=== PATIENT | male | born 1965 | race Caucasian/White ===

== ENCOUNTER 2020-03-10 10:08 | Emergency (ER) | payer SELFPAY ==
--- NOTE | ~2020-03-10 | XR_ITS ---
XR elbow RT min 3V 03/10/2020 10:58 INDICATION: Right elbow pain. Abrasion over fall. PROCEDURE: 4 views right elbow COMPARISON: No prior studies for comparison. FINDINGS: Fracture, dislocation or subluxation is not identified. The soft tissues appear within norm al limits. There are small radiodensities in the soft tissues posterior to the elbow, likely punctate foreign bodies. IMPRESSION: 1: NO ACUTE BONE OR JOINT ABNORMALITY IDENTIFIED. 2: Multiple punctate foreign bodies in the soft tissues posterior to the elbow. Reviewed, dictated and finalized at location A.
--- NOTE | ~2020-03-10 | CT_ITS ---
EXAMINATION: CT cervical spine wo con, CT brain wo con EXAM DATE: 03/10/2020 11:18 INDICATION: Seizures. Fall. Head injury. TECHNIQUE: Spiral CT of the head was performed without contrast. Axial, coronal and sagittal images were reviewed. Spiral CT of the cervical spine was performed without contrast. Axial images were rev iewed. Coronal and sagittal reformatted images were also reviewed. The dose-length product (DLP) fo r this examination was 681.00 mGy-cm. The exposure was tailored according to patient size, and itera tive reconstruction (ASIR) was used as additional dose reduction technique. There is no prior study for comparison. FINDINGS: HEAD CT: There is no acute intraparenchymal hemorrhage. No evidence of intraparenchymal brain mass l esion. No evidence of acute infarction. There is periventricular and subcortical hypodensity, nonspe cific but probably related to small vessel ischemic disease. There is mild prominence of the sulci and ventricles related to cerebral atrophy. Mild There is no mass effect or midline shift. There is no obstructive hydrocephalus suspected. There are no extra-axial collections. There are no acute calvarial fractures. The orbits are unremarkable. Small to moderate-sized right parietal scalp con tusion/hematoma. The visualized sinuses and mastoid air cells are well aerated. CERVICAL CT: There is no evidence of acute cervical fracture. The odontoid process is intact. Pre- dens space is normal. Prevertebral soft tissue is normal. There are no soft tissue abnormalities id entified. There is no disc space widening or traumatic vertebral body subluxation suspected. Partia l osseous fusion C6-7 vertebral bodies. A detailed level by level evaluation of spondylosis can be a dded as addendum if requested. IMPRESSION: 1. No acute intracranial findings or cervical fracture. 2. Small to moderate-sized right parietal scalp contusion/hematoma. 3. Chronic age related findings. Reviewed, dictated and finalized at location B. IMPRESSION: 1. No acute intracranial findings or cervical fracture. 2. Small to moderate-sized right parietal scalp contusion/hematoma. 3. Chronic age related findings.
--- NOTE | 2020-03-10 09:58 | ED_ITS ---
HPI - Alcohol General Stated Complaint: Seizure
--- NOTE | 2020-03-10 09:58 | ED.ALCOHOL ---
HPI - Alcohol General Stated Complaint: Seizure
[2020-03-10 10:20] VITALS: BP 113/73; PULSE 94; RESP 14; TEMP 36.8; O2SAT 100
--- NOTE | 2020-03-10 10:22 | ECG_ITS ---
Measurements Intervals [place] Rate: 84 P: -24 TN: 142 QRS: -55 QRSD: 107 T: -3 QT: 386 QTc: 457 Interpretive Statements SINUS RHYTHM INCOMPLETE RIGHT BUNDLE BRANCH BLOCK LEFT ANTERIOR FASCICULAR BLOCK BORDERLINE T WAVE ABNORMALITY- INFERIOR LEADS ABNORMAL ECG Electronically Signed On 03-10-2020 12:18:41 CDT by Nathaniel Chowdhury D.O.
--- NOTE | 2020-03-10 10:24 | ED.GENADULT ---
HPI - General Adult General Chief complaint: Seizure <Osmel Jackson PA-C - Last Filed: 03/10/20 15:29> Stated complaint: Seizure <Osmel Jackson PA-C - Last Filed: 03/10/20 15:29> Source: patient and EMS <ASHLEY Lou Last Filed: 03/10/20 15:29> Mode of arrival: EMS <Osmel Jackson PA-C - Last Filed: 03/10/20 15:29> Limitations: no limitations <Osmel Jackson PA-C - Last Filed: 03/10/20 15:29> History of Present Illness HPI narrative: Patient is a 54-year-old male who presents for EMS after sustaining injuries with described seizure-like activity patient is an alcoholic consumes vodka daily patient notes that he did not drink today last drink yesterday patient notes he has had 1 other seizure which may have been related to alcohol abuse patient lives at home by himself takes medicine for hypertension but does not currently have a primary care doctor patient on arrival to emergency department is in the room in no distress patient has injury to the right elbow denies other complaints or pain at this time and is alert and oriented x3. Patient was initially postictal on scene per EMS and had improvement at baseline during transportation <Osmel Jackson PA-C - Last Filed: 03/10/20 15:29> Related Data Allergies/adverse reactions: Allergies Allergy/AdvReac Type Severity Reaction Status Date / Time No Known Allergies Allergy Verified 03/10/20 14:44 <Osmel Jackson PA-C - Last Filed: 03/10/20 15:29> Review of Systems Review of Systems: All systems reviewed & are unremarkable except as noted in HPI and below <Osmel Jackson PA-C - Last Filed: 03/10/20 15:29> [facility] Past Medical History Medical History: Medical History (Updated 03/10/20 @ 15:27 by Osmel Jackson PA-C) Alcohol abuse Hypertension Seizure disorder <Osmel Jackson PA-C - Last Filed: 03/10/20 15:29> Social History Social History: Social History (Updated 03/10/20 @ 10:28 by Osmel Jackson PA-C) Smoking status: Current every day smoker Alcohol intake: current Substance use: never Living arrangements: alone Gender identity (if verbalized by the patient): Male <Oseml Jackson PA-C - Last Filed: 03/10/20 15:29> Exam Narrative: Exam Narrative: GENERAL: Well-appearing, well-nourished, and in no acute distress. HEAD: Normocephalic, atraumatic. EYES: PERRLA and EOMI. ENT: Nares clear, no rhinorrhea or epistaxis. Mucous membranes moist. Oropharynx without tonsillar hypertrophy exudate or other lesions. NECK: Supple. No adenopathy or masses. CHEST: Clear to auscultation. No respiratory distress. No wheezes rales or rhonchi HEART: Regular rate and rhythm. No murmur heard. Normal peripheral pulses. ABDOMEN: Soft, nontender, nondistended EXTREMITIES: Normal range of motion. No edema. Abrasion to the posterior right elbow. No cervical thoracic or lumbar tenderness SKIN: Warm, dry, no rash. NEURO: No focal deficits. Alert and oriented x3. Cranial nerves II through XII grossly intact PSYCH: Normal mood and affect. <Osmel Jackson PA-C - Last Filed: 03/10/20 15:29> Course Course Emergency Course: Patient in the room in no distress resting comfortably has remained at baseline mentation no high risk changes in the blood work or imaging patient aware of discussions and recommendations of neurology agreeing to follow-up with provided neurology and primary care referrals patient is afebrile nontoxic-appearing no distress. Patient agreeing to follow-up as instructed and is felt appropriate for outpatient reevaluation patient given strict instructions on not driving riding horses or any dangerous activities until he has been released by neurology <Osmel Jackson PA-C - Last Filed: 03/10/20 15:29> Consultations Consultation #1: Spoke with neurology who recommends the patient can follow in clinic [facility] so recommends loading the patient with Joanna corado
[2020-03-10] MEDS: LORazepam INJ (*CRX) 2 MG/ML VIAL 1 MG IV PUSH (11:30)
[2020-03-10 12:16] VITALS: BP 178/78; PULSE 79; RESP 18; O2SAT 100
[2020-03-10 12:54] LABS: Add Urine Microscopic? YES; Appearance Urine Clear (Clear); Bilirubin Urine Negative (Negative); Blood Urine 2+ (Negative); Color Urine Yellow (Yellow); Glucose Urine UA 3+ mg/dL (Negative); Hyaline Casts Urine 15-19 /lpf; Ketones Urine Trace mg/dL (Negative); Leukocyte Esterase Ur Negative LEU/UL (Negative); Mucus Urine Rare /lpf; Nitrate Urine Negative (Negative); Protein Urine 2+ mg/dL (Negative); Specific Grav Ur 1.022 (1.001-1.035); Squamous Epithelial Cell Urine Rare /hpf (Few); Urobilinogen Urine Negative mg/dL (<2.0); WBC Urine 0-3 /hpf
[2020-03-10 12:57] LABS: Barbiturate Screen Urine Negative (Negative); Benzodiazepines Screen Urine Negative (Negative)
[2020-03-10 12:58] LABS: Amphetamine Screen Urine Negative (Negative); Cannabinoid Screen Urine Negative (Negative); Cocaine Screen Urine Negative (Negative); Methadone Screen Urine Negative (Negative); Opiate Screen Urine Negative (Negative); Phencyclidine Screen Urine Negative (Negative)
[2020-03-10 12:59] LABS: Basophils Percent Auto 0.3 % (0.2-1.2); Eosinophils Percent Auto 0.4 % (0-4.4); Hematocrit 37.5 % (42.0-52.0); Hemoglobin 13.1 g/dL (14.0-18.0); Immature Granulocyte Absolute 0.06 K/mm3 (0.00-0.031); Immature Granulocyte Percent A 0.6 % (0-0.5); Lymphocytes Absolute Auto 0.49 K/mm3 (0.9-3.2); Lymphocytes Percent Auto 4.5 % (18.3-44.2); Mean Corpuscular HGB Conc 34.9 g/dl (32-36); Mean Corpuscular Hemoglobin 34.7 pg (26-34); Mean Corpuscular Volume 99.5 fl (80-100); Mean Platelet Volume 9.2 fl (7.4-10.4); Monocytes Absolute Auto 0.7 K/mm3 (0.1-0.6); Monocytes Percent Auto 6.8 % (2.6-8.5); Neutrophils Absolute Auto 9.5 K/mm3 (1.3-6.7); Neutrophils Percent Auto 87.4 % (45.5-73.1); Platelet Count Result 224 k/mm3 (150-375); Red Blood Count 3.77 M/mm3 (4.6-6.20); Red Cell Distribution Width 14.6 % (11.5-14.5); White Blood Count 10.9 K/mm3 (4.5-10.0)
[2020-03-10 13:11] LABS: Alanine Aminotransferase 35 U/L (4-50); Albumin Level 4.3 g/dL (3.5-5.1); Alkaline Phosphatase 72 U/L (38-126); Anion Gap 7 mmol/L (8-16); Aspartate Amino Transferase 65 U/L (17-59); Bilirubin,Total 1.4 mg/dL (0.2-1.3); Blood Urea Nitrogen 15 mg/dL (9-20); Calcium 8.8 mg/dL (8.4-10.2); Carbon Dioxide 26 mmol/L (22-30); Chloride 97 mmol/L (98-107); Estimated CRCL calculation 130 ml/min; Estimated Glomerular Filt Rate > 60; Glucose 115 mg/dL (75-110); Sodium 130 mmol/L (137-145)
[2020-03-10 13:20] LABS: Troponin I 0.023 ng/mL (0.000-0.034)
[2020-03-10 14:04] LABS: Ethanol < 10 mg/dL (<10)
[2020-03-10] MEDS: levETIRAcetam 1000MG/NACL100ML 1,000 MG/100 ML BAG 400 MG IVPB (14:44)
[2020-03-10 14:50] VITALS: BP 164/92; PULSE 87; RESP 15; O2SAT 100
== END 2020-03-10 15:44 | disposition home or self-care (01) ==
PROVIDERS: Emergency Medicine Emergency Medical Services; Emergency Provider Emergency Medicine
DX: F10.10 Alcohol abuse, uncomplicated (principal); Y90.0 Blood alcohol level of less than 20 mg/100 ml; G40.909 Epilepsy, unspecified, not intractable, without status epilepticus; I10 Essential (primary) hypertension; F17.210 Nicotine dependence, cigarettes, uncomplicated
CPT/HCPCS: 36415; 70450; 72125; 73080; 80053; 80307; 81001; 84443; 84484; 85025; 93005; 96365; 96375; 99284; J1953; J2060; J3411; J3475; J7120

== ENCOUNTER 2024-05-16 12:02 | Observation (INO) | payer MEDICAID, SELFPAY ==
[2024-05-16] VITALS (14 sets, daily range): BP systolic 125–172; BP diastolic 76–105; PULSE 59–97; RESP 12–19; TEMP 36.4–37.3; O2SAT 98–100; BMI 27.1
--- NOTE | ~2024-05-16 | CT_ITS ---
EXAMINATION: CT abdomen pelvis w con DATE: 05/16/2024 13:05 INDICATION: Epigastric pain, nausea, vomiting, diarrhea, bright red blood in stool; alcoholic. TECHNIQUE: Computed tomography (CT) of the abdomen and pelvis was performed with 100 CC Omnipaque 350 intravenous contrast. Automated exposure control and iterative reconstruction technique were employe d. Exam dose: 466.18 mGy-cm total exam DLP. COMPARISON: None. FINDINGS: The lung bases are clear of infiltrate or consolidation. Heart size is within normal range. No pericardial or pleural effusion. There is hepatic steatosis. No hepatic space-occupying mass lesion is evident. The gallbladder is unremarkable; no gallbladder wall thickening or pericholecystic fluid or fat stran ding. No bile duct dilatation. There is extensive calcification throughout nearly the entire pancreas relatively sparing only the ta il. There is irregular prominent lucency of the pancreatic tail measuring up to at least 1.9 x 2.9 cm ove rall dimension. Given the diagnosis of chronic pancreatitis with extensive pancreatic calcifications, pancreatic pseudocyst would be a primary consideration for this cystic lesion.. Less likely consider ations in the differential diagnosis includes serous cystic neoplasm intraductal papillary mucinous n eoplasm, serous cystic neoplasm, cystic neuroendocrine tumor, lymphoepithelial cyst. Approximately 9.7 x 13 mm right renal pelvic calculus with attenuation of 921 Hounsfield units. There is mild right hydronephrosis. 2.4 mm nonobstructing lower pole left renal calculus. No other urinary tract calculus. No left hydroureteronephrosis. Impression 14 x 18 mm posterior left mid renal cyst. There is extensive abdominal aortic calcification as well as iliac and femoral arterial calcification s. No abdominal aortic aneurysm. No intraperitoneal or retroperitoneal or pelvic mass lesion or adenopathy or ascites. Moderate prostate enlargement which may in addition to limited urinary bladder distention for diffuse thickening of the urinary bladder wall. No focal urinary bladder wall thickening is identified. No bowel obstruction, bowel wall thickening, pneumatosis or intraperitoneal free air is detected. Very small fat-containing left inguinal hernia. Very small fat-containing umbilical hernia. No suspicious osteolytic or osteoblastic lesions. IMPRESSION: Hepatic steatosis Chronic pancreatitis 1.9 x 2.9 cm pancreatic tail cystic lesion; differential diagnosis is given above, including benign a nd malignant causes. Pancreatic pseudocyst would be at the top of the differential diagnosis consider ing the extensive pancreatic calcifications/chronic pancreatitis 9.7 x 13 mm right renal pelvic calculus and 2.4 mm nonobstructing lower pole left renal calculus 14 x 18 mm left mid renal cyst Moderate prostatomegaly, diffuse bladder wall thickening Reviewed, dictated and finalized at [facility] Reviewed, dictated and finalized at [facility]R[facility] Impression 14 x 18 mm posterior left mid renal cyst. There is extensive abdominal aortic calcification as well as iliac and femoral arterial calcifications. No abdominal aortic aneurysm. No intraperitoneal or retroperitoneal or pelvic mass lesion or adenopathy or as cites. Moderate prostate enlargement which may in addition to limited urinary bladder distention for diffuse thickening of the urinary bladder wall. No focal urinary bladder wall thickening is identified. No bowel obstruction, bowel wall thickening, pneumatosis or intraperitoneal noy e air is detected. Very small fat-containing left inguinal hernia. Very small fat-containing umbilical hernia. No suspicious osteolytic or osteoblastic lesions. IMPRESSION: Hepatic steatosis Chronic pancreatitis 1.9 x 2.9 cm pancreatic tail cystic lesion; differential diagnosis is given abo ve, including benign and malignant causes. Pancreatic pseudocyst would be at th e top of the differential diagnosis considering the extensive pancreatic calcif ications/chronic pancreatitis 9.7 x 13 mm right renal pelvic calculus and 2.4 mm nonobstructing lower pole le ft renal calculus 14 x 18 mm left mid renal cyst Moderate prostatomegaly, diffuse bladder wall thickening
--- NOTE | 2024-05-16 12:26 | ED.GIBLEED ---
HPI - GI Bleed General Chief complaint: GI Bleed Stated complaint: Blood in stool, Pancreas Hurt Time Seen by Provider: 05/16/24 12:26 Source: patient Mode of arrival: ambulatory Limitations: no limitations History of Present Illness HPI Narrative: 58 years old white male, homeless, came to the ED complaining of nausea vomiting and diarrhea for the last 24 hours. Patient believed that he vomited at least 10 times and diarrhea at least 10 times over the last 24 hours associated with chills and mid upper abdominal pain. Last meal was yesterday noon. History of chronic pancreatitis, hypertension, tobacco dependent, patient report drinking 1 pt of vodka daily, last drink was over 24 hours ago. Patient uses marijuana occasionally. History of seizure secondary to alcohol withdrawal. Related Data Allergies Allergy/AdvReac Type Severity Reaction Status Date / Time No Known Allergies Allergy Verified 05/16/24 12:03 Review of Systems Review of Systems: All systems reviewed & are unremarkable except as noted in HPI and below PMFSH Past Medical History Medical History (Updated 05/16/24 @ 15:36 by Marion Cantu MD) Alcohol abuse Alcohol withdrawal seizure Bilateral nephrolithiasis Chronic pancreatitis Hepatic steatosis Hypertension Pancreatic lesion CT scan on 05/16/2024 showed a 1.9 x 2.9 cm pancreatic tail cystic lesion Seizure disorder Tobacco dependence Social History Social History (Updated 05/16/24 @ 15:09 by Sarah Juarez PA-C) Social History: Surrogate medical decision maker: Code status: Full code. Smoking status: Current every day smoker Alcohol intake: current Alcohol use details: one pint of vodka a day Substance use: never Exam Narrative: General appearance: Well-developed, well-nourished Skin: Normal color Head: Normocephalic, nontraumatic Eyes: Clear conjunctiva ENT: Oropharynx normal, ears normal, nose normal Neck: Supple, nontender Chest and respiratory: Airway patent, no respiratory distress, no accessory muscle use Heart: Regular rate/rhythm Abdomen: Epigastric tenderness, quite bowel sounds, rectal exam showed no mass, no tenderness, guaiac negative Vascular: Normal peripheral pulses, normal capillary refill. 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 Flowers Date: 05/16/24 Time: 15:35 Vital Signs Vital signs: Vital Signs Temperature 36.4 C 05/16/24 12:11 Pulse Rate 97 05/16/24 12:11 Respiratory Rate 16 05/16/24 12:11 Blood Pressure 143/97 H 05/16/24 12:11 Pulse Oximetry 100 05/16/24 12:11 Oxygen Delivery Room Air 05/16/24 12:11 Temperature 36.4 C 05/16/24 13:08 Pulse Rate 59 L 05/16/24 13:08 Respiratory Rate 18 05/16/24 13:08 Blood Pressure 160/99 H 05/16/24 13:08 Pulse Oximetry 100 05/16/24 13:08 Oxygen Delivery Room Air 05/16/24 12:11 MDM - GI Bleed MDM Narrative Medical decision making narrative: Patient presents with nausea vomiting and diarrhea and epigastric pain Patient is homeless. Vital signs are stable Physical examination showing diffuse tenderness at the epigastric area Differential diagnosis include viral gastroenteritis, pancreatitis, gastritis, esophagitis, electrolyte imbalance, dehydration. Blood workup today includes CBC, CMP, lipase showed potassium 2.8, lactic acid 4.5, calcium 8.2, normal liver enzymes, lipase 77, otherwise insignificant abnormalities. CT abdomen and pelvis with IV contrast showed pancreatic tail cystic lesion benign versus malignancy, kidney stone, Admit to hospitalist Differential Diagnosis Differential diagnosis: Likely other (As above) Medical Records Attestation: I reviewed the patient's medical records. Lab Data Attestation: I reviewed the patient's lab results. 05/16/24 12:51 05/16/24 12:51 Labs: Lab Results 05/16/24 05/16/24 Range/Units 12:50 12:51 WBC 7.4 (4.5-10.0) K/mm3 RBC 4.77 (4.6-6.20) M/mm3 Hgb 14.9 (14.0-18.0) g/dL Hct 42.9 (42.0-52.0) % MCV 89.9 (80-100) fl MCH 31.2 (26-34) pg MCHC 34.7 (32-36) g/dl RDW 13.1 (11.5-14.5) % Plt Count 200 (150-375) k/mm3 MPV 9.7 (7.4-10.4) fl Immature Gran % (Auto) 0.1 (0-0.5) % Neut % (Auto) 74.9 H (45.5-73.1) % Lymph % (Auto) 13.6 L (18.3-44.2) % [place] % (Auto) 10.5 H (2.6-8.5) % Eos % (Auto) 0.4 (0-4.4) % Baso % (Auto) 0.5 (0.2-1.2) % Lymph # (Auto) 1.01 (0.9-3.2) K/mm3 [place] # (Auto) 0.8 H (0.1-0.6) K/mm3 Eos # (Auto) 0.0 (0-0.3) K/mm3 Baso # (Auto) 0.0 (0.0-0.1) K/mm3 Abs Immat Gran (auto) 0.01 (0.00-0.031) K/mm3 Absolute Neuts (auto) 5.5 (1.3-6.7) K/mm3 Absolute Nucleated RBC 0.000 (0.0-0.012) K/mm3 Nucleated RBC % 0.0 (0.0-0.2) % PT 13.5 (11.1-14.7) Seconds INR 1.0 APTT 28.4 (22.3-36.8) Seconds Sodium 135 L (137-145) mmol/L Potassium 2.8 L* (3.4-5.0) mmol/L Chloride 98 (98-107) mmol/L Carbon Dioxide 29 (22-30) mmol/L Anion Gap 8 (4-12) mmol/L BUN 5 L D (9-20) mg/dL Creatinine 0.70 (0.7-1.3) mg/dL Estim Creat Clear Calc 105 ml/min Estimated GFR > 60 (59 - ) Glucose 151 H (65-110) mg/dL Lactic Acid 4.5 H* (0.7-2.0) mmol/L Calcium 8.2 L (8.4-10.2) mg/dL Total Bilirubin 0.9 (0.2-1.3) mg/dL AST 60 H (17-59) U/L ALT 29 (6-50) U/L Alkaline Phosphatase 112 (38-126) U/L Total Protein 8.0 (6.3-8.2) g/dL Albumin 4.3 (3.5-5.1) g/dL Lipase 77 (23-300) U/L Ethyl Alcohol < 10 (<10) mg/dL Blood Type AB Positive Antibody Screen Positive Antibody Identification Pending Antigen Identification Pending CARLEY, IgG Interpret Neg CARLEY, Poly Interpret TNP CARLEY, Complement Interp Pending Imaging Data Radiologist's impression: Impressions Abdomen/Pelvis CT 05/16/24 13:10 Impression 14 x 18 mm posterior left mid renal cyst. There is extensive abdominal aortic calcification as well as iliac and femoral arterial calcifications. No abdominal aortic aneurysm. No intraperitoneal or retroperitoneal or pelvic mass lesion or adenopathy or ascites. Moderate prostate enlargement which may in addition to limited urinary bladder distention for diffuse thickening of the urinary bladder wall. No focal urinary bladder wall thickening is identified. No bowel obstruction, bowel wall thickening, pneumatosis or intraperitoneal free air is detected. Very small fat-containing left inguinal hernia. Very small fat-containing umbilical hernia. No suspicious osteolytic or osteoblastic lesions. IMPRESSION: Hepatic steatosis Chronic pancreatitis 1.9 x 2.9 cm pancreatic tail cystic lesion; differential diagnosis is given above, including benign and malignant causes. Pancreatic pseudocyst would be at the top of the differential diagnosis considering the extensive pancreatic calcifications/chronic pancreatitis 9.7 x 13 mm right renal pelvic calculus and 2.4 mm nonobstructing lower pole left renal calculus 14 x 18 mm left mid renal cyst Moderate prostatomegaly, diffuse bladder wall thickening Critical Care Time Critical Care Time Critical Care Time: No Discharge Plan Discharge Clinical Impression: Gastroenteritis, Acute hypokalemia, Homeless, Alcohol abuse, Pancreas cyst Patient Disposition: Still a Patient Condition: Stable Additional Instructions: Admit to hospitalist Prescriptions: No Action levetiracetam [Keppra] 500 mg tablet 500 mg PO BID 14 Days Qty: 28 0RF Follow-up/Referrals: PHYSICIAN,CLOUD ARCHITECT [Non-Staff] -
[2024-05-16 13:08] LABS: Basophils Percent Auto 0.5 % (0.2-1.2); Eosinophils Percent Auto 0.4 % (0-4.4); Hematocrit 42.9 % (42.0-52.0); Hemoglobin 14.9 g/dL (14.0-18.0); Immature Granulocyte Absolute 0.01 K/mm3 (0.00-0.031); Immature Granulocyte Percent A 0.1 % (0-0.5); Lymphocytes Absolute Auto 1.01 K/mm3 (0.9-3.2); Lymphocytes Percent Auto 13.6 % (18.3-44.2); Mean Corpuscular HGB Conc 34.7 g/dl (32-36); Mean Corpuscular Hemoglobin 31.2 pg (26-34); Mean Corpuscular Volume 89.9 fl (80-100); Mean Platelet Volume 9.7 fl (7.4-10.4); Monocytes Absolute Auto 0.8 K/mm3 (0.1-0.6); Monocytes Percent Auto 10.5 % (2.6-8.5); Neutrophils Absolute Auto 5.5 K/mm3 (1.3-6.7); Neutrophils Percent Auto 74.9 % (45.5-73.1); Platelet Count Result 200 k/mm3 (150-375); Red Blood Count 4.77 M/mm3 (4.6-6.20); Red Cell Distribution Width 13.1 % (11.5-14.5); White Blood Count 7.4 K/mm3 (4.5-10.0)
[2024-05-16] MEDS: SODIUM CHLORIDE 0.9% IV 1,000 ML 999 ML IV CONT (13:09)
[2024-05-16 13:17] LABS: Albumin Level 4.3 g/dL (3.5-5.1); Alkaline Phosphatase 112 U/L (38-126); Anion Gap 8 mmol/L (4-12); Aspartate Amino Transferase 60 U/L (17-59); Bilirubin,Total 0.9 mg/dL (0.2-1.3); Blood Urea Nitrogen 5 mg/dL (9-20); Calcium 8.2 mg/dL (8.4-10.2); Carbon Dioxide 29 mmol/L (22-30); Chloride 98 mmol/L (98-107); Estimated CRCL calculation 105 ml/min; Estimated Glomerular Filt Rate > 60; Glucose 151 mg/dL (65-110); Partial Thromboplastin Time 28.4 Seconds (22.3-36.8); Potassium 2.8 mmol/L (3.4-5.0); Prothrombin Time 13.5 Seconds (11.1-14.7); Sodium 135 mmol/L (137-145)
--- NOTE | 2024-05-16 13:18 | ECG_ITS ---
Test Date: 2024-05-16 14:52:47 Measurements Intervals [place] Rate: 57 P: 1 SD: 173 QRS: -45 QRSD: 97 T: -7 QT: 483 QTc: 472 Interpretive Statements SINUS BRADYCARDIA INCOMPLETE RIGHT BUNDLE BRANCH BLOCK LEFT ANTERIOR FASCICULAR BLOCK BORDERLINE T WAVE ABNORMALITY- INFERIOR LEADS ABNORMAL ECG No previous ECG available for comparison Electronically Signed On 05-16-2024 19:24:36 STRIP FEEDER by Nathaniel Chowdhury D.O.
[2024-05-16 13:19] LABS: Lipase 77 U/L (23-300)
[2024-05-16 13:20] LABS: Ethanol < 10 mg/dL (<10)
[2024-05-16 13:23] LABS: Alanine Aminotransferase 29 U/L (6-50)
[2024-05-16 13:23] LABS: Lactic Acid Reflex 4.5 mmol/L (0.7-2.0)
[2024-05-16] MEDS: POTASSIUM CHLORIDE INJ 40 MEQ in SODIUM CHLORIDE 0.9% IV 500 ML 130 MEQ IVPB (13:54)
[2024-05-16] MEDS: LORazepam INJ (*CRX) 2 MG/ML VIAL IV PUSH (13:54)
[2024-05-16] MEDS: POTASSIUM CHLORIDE 20 MEQ PACKET (FOR LIQUID) 40 MEQ PO (13:55)
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
[2024-05-16 15:39] LABS: Add Urine Microscopic? YES; Appearance Urine Clear (Clear); Bacteria Urine None Seen /hpf; Bilirubin Urine Negative (Negative); Blood Urine 3+ (Negative); Color Urine Yellow (Yellow); Glucose Urine UA Negative (Negative); Ketones Urine Negative (Negative); Leukocyte Esterase Ur Negative LEU/UL (Negative); Nitrate Urine Negative (Negative); Non Pathogenic Casts 0-2; Protein Urine Negative (Negative); RBC Urine >100 /hpf (0-2); Specific Grav Ur 1.029 (1.001-1.035); Squamous Epithelial Cell Urine None Seen /hpf (Few); Urobilinogen Urine 0.2 mg/dL (<2.0); WBC Urine 0-5 /hpf (0-3); pH Urine 7.5 (5.0-9.0)
--- NOTE | 2024-05-16 15:45 | WPDGICN ---
Assessment and Plan Assessment and plan (1) Gastroenteritis: Code(s): K52.9 - Noninfective gastroenteritis and colitis, unspecified Status: Acute Assessment and Plan: Patient with apparent picture of acute gastroenteritis, with associated hyperkalemia. Will admit him to a monitored bed while potassium levels are corrected and intravenous fluids administered. Stool samples will be collected and if there is presence of leukocytes, will start antibiotics. Will also provide symptomatic treatment for nausea vomiting. (2) Hypokalemia: Code(s): E87.6 - Hypokalemia Status: Acute GI Consult Note Consult date/time: 05/16/24 15:45 HPI: Vikas Wheeler is a 58 year old male with a history of chronic alcohol use, and chronic pancreatitis. The patient is actively drinking hard liquor up until 1 day ago when he started feeling nauseated and has vomited 10 times. In addition, he states he had multiple episodes of diarrhea, some of them with blood. There is no fever or abdominal pain. He is admitted for observation and for correction of potassium level which is 2.8 mEQ/liter. Review of Systems Review of Systems: All systems reviewed & are unremarkable except as noted in HPI and below PMFSH Past Medical History Medical History (Updated 05/16/24 @ 15:36 by Marion Cantu MD) Alcohol abuse Alcohol withdrawal seizure Bilateral nephrolithiasis Chronic pancreatitis Hepatic steatosis Hypertension Pancreatic lesion CT scan on 05/16/2024 showed a 1.9 x 2.9 cm pancreatic tail cystic lesion Seizure disorder Tobacco dependence Social History Social History (Updated 05/16/24 @ 15:09 by Sarah Juarez PA-C) Social History: Surrogate medical decision maker: Code status: Full code. Smoking status: Current every day smoker Alcohol intake: current Alcohol use details: one pint of vodka a day Substance use: never Meds Home Medications and Allergies Home Medications Medication Instructions Recorded Confirmed Type levetiracetam 500 mg tablet 500 mg PO BID 2 weeks #28 tabs 03/10/20 Rx (Keppra) Allergies Allergy/AdvReac Type Severity Reaction Status Date / Time No Known Allergies Allergy Verified 05/16/24 12:03 Vital Signs Vital Signs - 24 hr 05/16/24 12:11 05/16/24 12:25 05/16/24 13:08 Temperature 97.6 F 97.6 F Pulse Rate 97 81 59 L Respiratory Rate 16 18 18 Blood Pressure 143/97 H 153/105 H 160/99 H Pulse Oximetry 100 100 100 Oxygen Delivery Room Air 05/16/24 12:31 05/16/24 13:33 05/16/24 14:15 Temperature 97.8 F 97.8 F 97.9 F Pulse Rate 78 61 63 Respiratory Rate 19 13 18 Blood Pressure 162/102 H 168/104 H 164/102 H Pulse Oximetry 98 100 98 Oxygen Delivery 05/16/24 15:01 05/16/24 15:30 Temperature 97.8 F Pulse Rate 73 60 Respiratory Rate 13 15 Blood Pressure 172/101 H 158/100 H Pulse Oximetry 98 100 Oxygen Delivery Exam Narrative: General appearance: Well-developed, well-nourished Skin: Normal color Head: Normocephalic, nontraumatic Eyes: Clear conjunctiva ENT: Oropharynx normal, ears normal, nose normal Neck: Supple, nontender Chest and respiratory: Airway patent, no respiratory distress, no accessory muscle use Heart: Regular rate/rhythm Abdomen: Epigastric tenderness, quite bowel sounds, rectal exam showed no mass, no tenderness, guaiac negative Vascular: Normal peripheral pulses, normal capillary refill. Musculoskeletal: Normal range of motion, nontender back Neurologic: Alert and oriented ?3, EXPERIENCE SPECIALIST is normal as tested, no gross motor deficit Results Labs 05/16/24 12:51 05/16/24 12:51 Labs: Short CBC 05/16/24 Range/Units 12:51 WBC 7.4 (4.5-10.0) K/mm3 Hgb 14.9 (14.0-18.0) g/dL Hct 42.9 (42.0-52.0) % Plt Count 200 (150-375) k/mm3 [facility] 05/16/24 12:51 Sodium 135 L Potassium 2.8 L* Chloride 98 Carbon Dioxide 29 BUN 5 L D Creatinine 0.70 Glucose 151 H Calcium 8.2 L Liver Function 05/16/24 Range/Units 12:51 Total Bilirubin 0.9 (0.2-1.3) mg/dL AST 60 H (17-59) U/L ALT 29 (6-50) U/L Alkaline Phosphatase 112 (38-126) U/L Albumin 4.3 (3.5-5.1) g/dL
--- NOTE | 2024-05-16 15:57 | PC.NURSE ---
Lab called to add on magnesium and beta hydroxybutyrate.
[2024-05-16 16:06] LABS: Magnesium 1.3 mg/dL (1.6-2.3)
[2024-05-16 16:10] LABS: Reflex Lactic Acid Yes or No Add Lactic
[2024-05-16 16:15] LABS: Beta-Hydroxybutyrate/Acetoacetate 0.05 mmol/L (0.02-0.27)
--- NOTE | 2024-05-16 16:39 | PC.NURSE ---
lactic acid drawn and sent to lab
[2024-05-16 16:45] LABS: Lactic Acid Reflex 1.8 mmol/L (0.7-2.0)
--- NOTE | 2024-05-16 16:45 | ADMGEN ---
This patient, Vikas Wheeler, was admitted to Medical Room 242-. Patient/family oriented to hospital policies and general routines including ID bracelet, bed and alarms, visiting hours, pain management, procedures, bathroom and other care routines, personal items, smoking policy, room service/diet, and visiting hours. Information on how to activate the Rapid Response Team has been discussed. Patient/Family are encouraged to report perceived risks to care and to ask questions if they do not understand what they are told or what they should do.
[2024-05-16 17:03] LABS: Influenza A QL RT-PCR Negative (Negative); Influenza B QL RT-PCR Negative (Negative); RSV RNA, RT-PCR Negative (Negative); SARS-CoV-2 RNA PCR Negative (Negative)
[2024-05-16 17:44] LABS: Lactic Acid 2.2 mmol/L (0.7-2.0)
[2024-05-16] MEDS: ONDANSETRON INJ 4 MG/2 ML VIAL IV PUSH (18:42)
[2024-05-16] MEDS: SODIUM CHLORIDE 0.9% IV 1,000 ML 150 ML IV CONT (18:42)
[2024-05-16] MEDS: chlordiazePOXIDE (*CRX) 25 MG CAPSULE PO (21:01)
[2024-05-16] MEDS: THIAMINE HCL 200 MG/2 ML VIAL 100 MG IV PUSH (21:01)
[2024-05-16 21:38] LABS: Anion Gap 7 mmol/L (4-12); Blood Urea Nitrogen 3 mg/dL (9-20); Calcium 7.4 mg/dL (8.4-10.2); Carbon Dioxide 28 mmol/L (22-30); Chloride 101 mmol/L (98-107); Estimated CRCL calculation 105 ml/min; Estimated Glomerular Filt Rate > 60; Glucose 134 mg/dL (65-110); Magnesium 1.1 mg/dL (1.6-2.3); Potassium 3.5 mmol/L (3.4-5.0); Sodium 136 mmol/L (137-145)
[2024-05-16] MEDS: PREGABALIN (*CRX) 50 MG CAPSULE 200 MG PO (22:00)
[2024-05-16] MEDS: BACLOFEN 5 MG TABLET PO (22:01)
[2024-05-17] VITALS (11 sets, daily range): BP systolic 110–130; BP diastolic 73–78; PULSE 49–88; RESP 16–18; TEMP 36.7–37; O2SAT 99–100
[2024-05-17] MEDS: chlordiazePOXIDE (*CRX) 25 MG CAPSULE PO ×5 (00:20→23:56)
[2024-05-17 00:21] LABS: Glucose Point of Care 142 mg/dl (65-105)
[2024-05-17] MEDS: MAGNESIUM SULFATE 3GM/D5W100ML 3 GM/100 ML BAG IVPB (00:29)
[2024-05-17 05:04] LABS: Hematocrit 38.2 % (42.0-52.0); Hemoglobin 12.9 g/dL (14.0-18.0); Mean Corpuscular HGB Conc 33.8 g/dl (32-36); Mean Corpuscular Hemoglobin 31.2 pg (26-34); Mean Corpuscular Volume 92.5 fl (80-100); Mean Platelet Volume 9.8 fl (7.4-10.4); Platelet Count Result 172 k/mm3 (150-375); Red Blood Count 4.13 M/mm3 (4.6-6.20); Red Cell Distribution Width 13.4 % (11.5-14.5); White Blood Count 4.8 K/mm3 (4.5-10.0)
[2024-05-17 05:22] LABS: Alanine Aminotransferase 18 U/L (6-50); Albumin Level 3.2 g/dL (3.5-5.1); Alkaline Phosphatase 87 U/L (38-126); Anion Gap 2 mmol/L (4-12); Aspartate Amino Transferase 43 U/L (17-59); Blood Urea Nitrogen 3 mg/dL (9-20); Calcium 7.5 mg/dL (8.4-10.2); Carbon Dioxide 28 mmol/L (22-30); Chloride 107 mmol/L (98-107); Estimated CRCL calculation 105 ml/min; Estimated Glomerular Filt Rate > 60; Glucose 109 mg/dL (65-110); Magnesium 2.3 mg/dL (1.6-2.3); Potassium 3.7 mmol/L (3.4-5.0); Sodium 137 mmol/L (137-145)
[2024-05-17] MEDS: SODIUM CHLORIDE 0.9% IV 1,000 ML 150 ML IV CONT ×3 (06:08→20:06)
[2024-05-17 06:17] LABS: Glucose Point of Care 108 mg/dl (65-105)
--- NOTE | 2024-05-17 06:51 | P.PNIM_ITS ---
Progress Note: A&P Assessment and Plan (1) Chronic pancreatitis: Code(s): K86.1 - Other chronic pancreatitis Status: Acute Assessment and Plan: Patient endorses abdominal pain, nausea, vomiting, and diarrhea for 24 hours. Symptoms are likely related to chronic pancreatitis vs gastroenteritis. He reports a small amount of bright red blood admixed with a mucousy stool in this will be monitored. - Lipase 77 - Stool samples ordered - CT abdomen/pelvis Chronic pancreatitis 1.9 x 2.9 cm pancreatic tail cystic lesion; differential diagnosis is given above, including benign and malignant causes. Pancreatic pseudocyst would be at the top of the differential diagnosis considering the extensive pancreatic calcifications/chronic pancreatitis 9.7 x 13 mm right renal pelvic calculus and 2.4 mm nonobstructing lower pole left renal calculus 14 x 18 mm left mid renal cyst Moderate prostatomegaly, diffuse bladder wall thickening Hepatic steatosis - IV fluids - Diet: full liquid diet, advance to low fat diet tomorrow if tolerates well - GI consult Stool samples will be collected and if there is presence of leukocytes, will start antibiotics. Will also provide symptomatic treatment for nausea vomiting. Follow-up in the GI office in couple of weeks for further investigation of the cyst may be endoscopic ultrasound can be carried out as outpatient. Decrease the Creon to at least [id number] to 2 tablets 3 times a day (2) Pancreatic lesion: Code(s): K86.9 - Disease of pancreas, unspecified Status: Acute Assessment and Plan: Pancreatic tail cystic lesions seen on CT may very well be pseudocyst. - CT abdomen/pelvis Chronic pancreatitis 1.9 x 2.9 cm pancreatic tail cystic lesion; differential diagnosis is given above, including benign and malignant causes. Pancreatic pseudocyst would be at the top of the differential diagnosis considering the extensive pancreatic calcifications/chronic pancreatitis - GI consulted Follow up in the GI office in a couple weeks for further investigation May be endoscopic US can be done outpatient (3) Hypokalemia: Code(s): E87.6 - Hypokalemia Status: Acute Assessment and Plan: K 2.8 on admission. Repleted and has been stable. - Monitor (4) Rectal bleeding: Code(s): K62.5 - Hemorrhage of anus and rectum Status: Acute Assessment and Plan: Per chart review, he estimates at least 10 episodes of both vomiting and diarrhea. His stool is admixed with mucus and small amounts of bright red blood; emesis is nonbloody and nonbilious. H/H remains stable Denies any bloody stools since admission Monitor (5) Lactic acidosis: Code(s): E87.20 - Acidosis, unspecified Status: Acute Assessment and Plan: Lactic acid level is elevated at 4.5 on admission however is likely related to alcoholism; CT scan did not show any acute findings and he does not appear to have underlying infection. Repeat lactic acid 2.2 Continue IV fluid rehydration (6) Alcohol abuse: Code(s): F10.10 - Alcohol abuse, uncomplicated Status: Acute Assessment and Plan: He typically drinks a pt of vodka a day with his last drink being over 24 hours ago. No signs of alcohol withdrawal as of yet and denies shakes, hallucinations, anxiety, and sweats. - EtOH < 10 on admission - Schedule Librium and initiate CIWA protocol. (7) Bilateral nephrolithiasis: Code(s): N20.0 - Calculus of kidney Status: Acute Assessment and Plan: Bilateral renal stones are noted but are not causing any acute issues. - Follow up outpatient (8) Tobacco dependence: Code(s): F17.200 - Nicotine dependence, unspecified, uncomplicated Status: Acute Assessment and Plan: Nicotine gum available if needed. (9) Homeless: Code(s): Z59.00 - Homelessness unspecified Status: Acute Assessment and Plan: Care coordination consulted for homelessness and help finding a suitable longterm. Time Spent With Patient Time with patient: 25 - 35 minutes Subjective Date/time seen: 05/17/24 06:51 Interval history: 58-year-old male smoker with history of alcohol withdrawal seizure, alcohol abuse, hypertension, and chronic pancreatitis who presented to the emergency department with complaints of abdominal pain and bloody stools. Patient is pleasant lying comfortably in bed. Continues to endorse discomfort more so in the epigastric region. He was evaluated GI and no acute intervention is required at this time. He remains on CIWA protocols for alcohol withdrawal. He is not having any withdrawal symptoms at this time denying any chills, shakes, and hallucinations. Review of Systems Review of Systems: All systems reviewed & are unremarkable except as noted in HPI and below Exam Narrative: AF HR 57 RR 18 SpO2 99 BP 110/78 General: male in no acute respiratory distress who is nontoxic appearing, lying semi recumbent in bed. HEENT: Normocephalic. Atraumatic. Extraocular movement intact. Sclera clear and anicteric. No facial asymmetry. Chest: Lungs are clear to auscultation bilaterally. No wheezes or crackles. CV: Heart was regular rate and rhythm. S1/S2. No murmurs, gallops, or rubs. Abd: Abdomen was soft. Mild tenderness without guarding. Nondistended. Positive bowel sounds. No organomegaly or masses. Ext: No clubbing, cyanosis, or edema. 2+ DP pulses bilaterally. Neuro: Speech is clear. Objective Data Vital Signs Vital Signs: Vital Signs - 24 hr 05/16/24 12:11 05/16/24 12:25 05/16/24 13:08 Temperature 97.6 F 97.6 F Pulse Rate 97 81 59 L Pulse Rate [Right Radial Palpation] Respiratory Rate 16 18 18 Blood Pressure 143/97 H 153/105 H 160/99 H Pulse Oximetry 100 100 100 Oxygen Delivery Room Air 05/16/24 12:31 05/16/24 13:33 05/16/24 14:15 Temperature 97.8 F 97.8 F 97.9 F Pulse Rate 78 61 63 Pulse Rate [Right Radial Palpation] Respiratory Rate 19 13 18 Blood Pressure 162/102 H 168/104 H 164/102 H Pulse Oximetry 98 100 98 Oxygen Delivery 05/16/24 15:01 05/16/24 15:30 05/16/24 16:19 Temperature 97.8 F 97.6 F Pulse Rate 73 60 73 Pulse Rate [Right Radial Palpation] Respiratory Rate 13 15 17 Blood Pressure 172/101 H 158/100 H 170/104 H Pulse Oximetry 98 100 98 Oxygen Delivery 05/16/24 16:50 05/16/24 17:07 05/16/24 18:56 Temperature 97.9 F Pulse Rate 62 62 Pulse Rate [Right Radial Palpation] 68 Respiratory Rate 12 Blood Pressure 158/93 H Pulse Oximetry 100 Oxygen Delivery 05/16/24 18:56 05/16/24 19:35 05/16/24 20:19 Temperature 99.1 F Pulse Rate 61 Pulse Rate [Right Radial Palpation] 88 Respiratory Rate 16 Blood Pressure 125/76 Pulse Oximetry 98 Oxygen Delivery Room Air 05/16/24 20:00 05/16/24 20:52 05/17/24 00:00 Temperature Pulse Rate 66 53 L Pulse Rate [Right Radial Palpation] Respiratory Rate Blood Pressure Pulse Oximetry Oxygen Delivery Room Air 05/17/24 04:00 05/17/24 05:26 Temperature 98.6 F Pulse Rate 49 L 49 L Pulse Rate [Right Radial Palpation] Respiratory Rate 18 Blood Pressure 110/78 Pulse Oximetry 99 Oxygen Delivery Intake/Output Intake/Output: Intake & Output 05/14/24 05/15/24 05/16/24 05/17/24 23:59 23:59 23:59 23:59 Intake Total 1480 1500 Output Total 400 600 Balance 1080 900 Meds/Results Medications: Active Medications Generic Name Dose Route Start Last Admin Trade Name Freq PRN Reason Stop Dose Admin Amlodipine Besylate 10 mg 05/17/24 09:00 Amlodipine Besylate 10 Mg Tablet PO DAILY JORDYN Lipase/Protease/Amylase 6 cap 05/17/24 08:00 Lipase/Amylase/Protease 12,000 Units Cap PO TIDWM JORDYN Baclofen 5 mg 05/16/24 21:45 05/16/24 22:01 Baclofen 5 Mg Tablet PO 5 mg TID JORDYN Administration Chlordiazepoxide HCl 25 mg 05/16/24 19:00 05/17/24 06:09 Chlordiazepoxide (*Crx) 25 Mg Capsule PO 25 mg Q6HR JORDYN Administration Folic Acid 1 mg 05/17/24 09:00 Folic Acid 1 Mg Tablet PO DAILY [facility] Sodium Chloride 1,000 mls @ 150 mls/hr 05/16/24 15:40 05/17/24 06:08 Normal Saline Iv IV CONT 150 mls/hr .[id number] JORDYN Administration Lorazepam 1 mg 05/16/24 18:56 Lorazepam Inj (*Crx) 2 Mg/Ml Vial IV PUSH Q2H PRN CIWA 8-15 Lorazepam 2 mg 05/16/24 18:56 Lorazepam Inj (*Crx) 2 Mg/Ml Vial IV PUSH Q2H PRN CIWA > 15 Nicotine Polacrilex 4 mg 05/16/24 21:35 Nicotine (*Pbkc) 4 Mg Gum PO PRN PRN Nicotine Cravings Ondansetron HCl 4 mg 05/16/24 15:36 05/16/24 18:42 Ondansetron Inj 4 Mg/2 Ml Vial IV PUSH 4 mg Q4H PRN Administration Nausea Pregabalin 200 mg 05/16/24 21:45 05/16/24 22:00 Pregabalin (*Crx) 50 Mg Capsule PO 200 mg QHS [facility] Administration Thiamine HCl 100 mg 05/17/24 09:00 Thiamine Hcl 100 Mg Tablet PO QAM [facility] Radiology Results: ITS Impressions Abdomen/Pelvis CT 05/16/24 13:10 Impression 14 x 18 mm posterior left mid renal cyst. There is extensive abdominal aortic calcification as well as iliac and femoral arterial calcifications. No abdominal aortic aneurysm. No intraperitoneal or retroperitoneal or pelvic mass lesion or adenopathy or ascites. Moderate prostate enlargement which may in addition to limited urinary bladder distention for diffuse thickening of the urinary bladder wall. No focal urinary bladder wall thickening is identified. No bowel obstruction, bowel wall thickening, pneumatosis or intraperitoneal free air is detected. Very small fat-containing left inguinal hernia. Very small fat-containing umbilical hernia. No suspicious osteolytic or osteoblastic lesions. IMPRESSION: Hepatic steatosis Chronic pancreatitis 1.9 x 2.9 cm pancreatic tail cystic lesion; differential diagnosis is given above, including benign and malignant causes. Pancreatic pseudocyst would be at the top of the differential diagnosis considering the extensive pancreatic calcifications/chronic pancreatitis 9.7 x 13 mm right renal pelvic calculus and 2.4 mm nonobstructing lower pole left renal calculus 14 x 18 mm left mid renal cyst Moderate prostatomegaly, diffuse bladder wall thickening Labs Labs: Laboratory Results - last 24 hr 05/16/24 05/16/24 05/16/24 12:50 12:51 15:16 WBC 7.4 RBC 4.77 Hgb 14.9 Hct 42.9 MCV 89.9 MCH 31.2 MCHC 34.7 RDW 13.1 Plt Count 200 MPV 9.7 Immature Gran % (Auto) 0.1 Neut % (Auto) 74.9 H Lymph % (Auto) 13.6 L [place] % (Auto) 10.5 H Eos % (Auto) 0.4 Baso % (Auto) 0.5 Lymph # (Auto) 1.01 [place] # (Auto) 0.8 H Eos # (Auto) 0.0 Baso # (Auto) 0.0 Abs Immat Gran (auto) 0.01 Absolute Neuts (auto) 5.5 Absolute Nucleated RBC 0.000 Nucleated RBC % 0.0 PT 13.5 INR 1.0 APTT 28.4 Sodium 135 L Potassium 2.8 L* Chloride 98 Carbon Dioxide 29 Anion Gap 8 BUN 5 L D Creatinine 0.70 Estim Creat Clear Calc 105 Estimated GFR > 60 Glucose 151 H POC Capillary Glucose Lactic Acid 4.5 H* Calcium 8.2 L Magnesium 1.3 L Total Bilirubin 0.9 AST 60 H ALT 29 Alkaline Phosphatase 112 Total Protein 8.0 Albumin 4.3 Lipase 77 Beta-Hydroxybutyrate/Acetoacetate 0.05 Urine Color Urine Appearance Urine pH Ur Specific [place] Urine Protein Urine Glucose (UA) Urine Ketones Ur Blood (Man) Urine Nitrate Urine Bilirubin Urine Urobilinogen Leukocyte Esterase Rfl Urine RBC Urine WBC Ur Squamous Epith Cells Urine Bacteria Urine Casts Ethyl Alcohol < 10 Influenza A (RT-PCR) Influenza B (RT-PCR) RSV (RT-PCR) SARS-CoV-2 RNA (RT-PCR) Blood Type AB Positive Antibody Screen Positive Antibody Identification Anti-Zepeda A Antigen Identification Zepeda A Antigen - NEGATIVE CARLEY, IgG Interpret Neg CARLEY, Poly Interpret TNP CARLEY, Complement Interp Negative 05/16/24 05/16/24 05/16/24 15:22 15:28 16:32 WBC RBC Hgb Hct MCV MCH MCHC RDW Plt Count MPV Immature Gran % (Auto) Neut % (Auto) Lymph % (Auto) [place] % (Auto) Eos % (Auto) Baso % (Auto) Lymph # (Auto) [place] # (Auto) Eos # (Auto) Baso # (Auto) Abs Immat Gran (auto) Absolute Neuts (auto) Absolute Nucleated RBC Nucleated RBC % PT INR APTT Sodium Potassium Chloride Carbon Dioxide Anion Gap BUN Creatinine Estim Creat Clear Calc Estimated GFR Glucose POC Capillary Glucose Lactic Acid 1.8 Calcium Magnesium Total Bilirubin AST ALT Alkaline Phosphatase Total Protein Albumin Lipase Beta-Hydroxybutyrate/Acetoacetate Urine Color Yellow Urine Appearance Clear Urine pH 7.5 Ur Specific [place] 1.029 Urine Protein Negative Urine Glucose (UA) Negative Urine Ketones Negative Ur Blood (Man) 3+ H Urine Nitrate Negative Urine Bilirubin Negative Urine Urobilinogen 0.2 Leukocyte Esterase Rfl Negative Urine RBC >100 H Urine WBC 0-5 Ur Squamous Epith Cells None seen Urine Bacteria None seen Urine Casts 0-2 Ethyl Alcohol Influenza A (RT-PCR) Negative Influenza B (RT-PCR) Negative RSV (RT-PCR) Negative SARS-CoV-2 RNA (RT-PCR) Negative Blood Type Antibody Screen Antibody Identification Antigen Identification CARLEY, IgG Interpret CARLEY, Poly Interpret CARLEY, Complement Interp 05/16/24 05/16/24 05/17/24 17:08 21:10 00:18 WBC RBC Hgb Hct MCV MCH MCHC RDW Plt Count MPV Immature Gran % (Auto) Neut % (Auto) Lymph % (Auto) [place] % (Auto) Eos % (Auto) Baso % (Auto) Lymph # (Auto) [place] # (Auto) Eos # (Auto) Baso # (Auto) Abs Immat Gran (auto) Absolute Neuts (auto) Absolute Nucleated RBC Nucleated RBC % PT INR APTT Sodium 136 L Potassium 3.5 Chloride 101 Carbon Dioxide 28 Anion Gap 7 BUN 3 L Creatinine 0.70 Estim Creat Clear Calc 105 Estimated GFR > 60 Glucose 134 H POC Capillary Glucose 142 H Lactic Acid 2.2 H Calcium 7.4 L Magnesium 1.1 L Total Bilirubin AST ALT Alkaline Phosphatase Total Protein Albumin Lipase Beta-Hydroxybutyrate/Acetoacetate Urine Color Urine Appearance Urine pH Ur Specific [place] Urine Protein Urine Glucose (UA) Urine Ketones Ur Blood (Man) Urine Nitrate Urine Bilirubin Urine Urobilinogen Leukocyte Esterase Rfl Urine RBC Urine WBC Ur Squamous Epith Cells Urine Bacteria Urine Casts Ethyl Alcohol Influenza A (RT-PCR) Influenza B (RT-PCR) RSV (RT-PCR) SARS-CoV-2 RNA (RT-PCR) Blood Type Antibody Screen Antibody Identification Antigen Identification CARLEY, IgG Interpret CARLEY, Poly Interpret CARLEY, Complement Interp 05/17/24 05/17/24 04:28 06:14 WBC 4.8 RBC 4.13 L Hgb 12.9 L Hct 38.2 L MCV 92.5 MCH 31.2 MCHC 33.8 RDW 13.4 Plt Count 172 MPV 9.8 Immature Gran % (Auto) Neut % (Auto) Lymph % (Auto) [place] % (Auto) Eos % (Auto) Baso % (Auto) Lymph # (Auto) [place] # (Auto) Eos # (Auto) Baso # (Auto) Abs Immat Gran (auto) Absolute Neuts (auto) Absolute Nucleated RBC Nucleated RBC % PT INR APTT Sodium 137 Potassium 3.7 Chloride 107 Carbon Dioxide 28 Anion Gap 2 L BUN 3 L Creatinine 0.70 Estim Creat Clear Calc 105 Estimated GFR > 60 Glucose 109 POC Capillary Glucose 108 H Lactic Acid Calcium 7.5 L Magnesium 2.3 Total Bilirubin 1.0 AST 43 ALT 18 Alkaline Phosphatase 87 Total Protein 6.0 L Albumin 3.2 L Lipase Beta-Hydroxybutyrate/Acetoacetate Urine Color Urine Appearance Urine pH Ur Specific [place] Urine Protein Urine Glucose (UA) Urine Ketones Ur Blood (Man) Urine Nitrate Urine Bilirubin Urine Urobilinogen Leukocyte Esterase Rfl Urine RBC Urine WBC Ur Squamous Epith Cells Urine Bacteria Urine Casts Ethyl Alcohol Influenza A (RT-PCR) Influenza B (RT-PCR) RSV (RT-PCR) SARS-CoV-2 RNA (RT-PCR) Blood Type Antibody Screen Antibody Identification Antigen Identification CARLEY, IgG Interpret CARLEY, Poly Interpret CARLEY, Complement Interp Quality VTE Prophylaxis VTE prophylaxis: mechanical ordered
[2024-05-17] MEDS: FOLIC ACID 1 MG TABLET PO (09:22)
[2024-05-17] MEDS: LIPASE/AMYLASE/PROTEASE 12,000 UNITS CAP 6 CAP PO ×3 (09:22→17:55)
[2024-05-17] MEDS: amLODIPine BESYLATE 10 MG TABLET PO (09:22)
[2024-05-17] MEDS: BACLOFEN 5 MG TABLET PO ×3 (09:22→17:56)
[2024-05-17] MEDS: THIAMINE HCL 100 MG TABLET PO (09:23)
--- NOTE | 2024-05-17 11:21 | WPDGIPROGNO ---
Subjective Date/time seen: 05/17/24 11:21 Interval history: Doing well, good appetite wants to eat food denies any nausea has been worked up for chronic pancreatitis with cyst gastrostomy in the past CT finding discussed Stool not given as have no BMs. Review of Systems Cardiovascular: Comments: No chest pain Respiratory: Comments: NO Sob Gastrointestinal: Comments: see above Exam Cardio: Other: S1 S2 no rub, no murmur. HENMT: Other: PEERl + Neck: Other: Supple Chest: Other: Air entry equal, clear breath sounds. Resp: Other: Air entry equal, clear Objective Data Vital Signs Vital Signs: Vital Signs - 24 hr 05/16/24 12:11 05/16/24 12:25 05/16/24 13:08 Temperature 97.6 F 97.6 F Pulse Rate 97 81 59 L Pulse Rate [Bilateral Pedal (Dorsalis Pedis) Palpation] Pulse Rate [Right Radial Palpation] Respiratory Rate 16 18 18 Blood Pressure 143/97 H 153/105 H 160/99 H Pulse Oximetry 100 100 100 Oxygen Delivery Room Air 05/16/24 12:31 05/16/24 13:33 05/16/24 14:15 Temperature 97.8 F 97.8 F 97.9 F Pulse Rate 78 61 63 Pulse Rate [Bilateral Pedal (Dorsalis Pedis) Palpation] Pulse Rate [Right Radial Palpation] Respiratory Rate 19 13 18 Blood Pressure 162/102 H 168/104 H 164/102 H Pulse Oximetry 98 100 98 Oxygen Delivery 05/16/24 15:01 05/16/24 15:30 05/16/24 16:19 Temperature 97.8 F 97.6 F Pulse Rate 73 60 73 Pulse Rate [Bilateral Pedal (Dorsalis Pedis) Palpation] Pulse Rate [Right Radial Palpation] Respiratory Rate 13 15 17 Blood Pressure 172/101 H 158/100 H 170/104 H Pulse Oximetry 98 100 98 Oxygen Delivery 05/16/24 16:50 05/16/24 17:07 05/16/24 18:56 Temperature 97.9 F Pulse Rate 62 62 Pulse Rate [Bilateral Pedal (Dorsalis Pedis) Palpation] Pulse Rate [Right Radial Palpation] 68 Respiratory Rate 12 Blood Pressure 158/93 H Pulse Oximetry 100 Oxygen Delivery 05/16/24 18:56 05/16/24 19:35 05/16/24 20:19 Temperature 99.1 F Pulse Rate 61 Pulse Rate [Bilateral Pedal (Dorsalis Pedis) Palpation] Pulse Rate [Right Radial Palpation] 88 Respiratory Rate 16 Blood Pressure 125/76 Pulse Oximetry 98 Oxygen Delivery Room Air 05/16/24 20:00 05/16/24 20:52 05/17/24 00:00 Temperature Pulse Rate 66 53 L Pulse Rate [Bilateral Pedal (Dorsalis Pedis) Palpation] Pulse Rate [Right Radial Palpation] Respiratory Rate Blood Pressure Pulse Oximetry Oxygen Delivery Room Air 05/17/24 04:00 05/17/24 05:26 05/17/24 09:25 Temperature 98.6 F Pulse Rate 49 L 49 L Pulse Rate [Bilateral Pedal (Dorsalis Pedis) Palpation] 50 L Pulse Rate [Right Radial Palpation] Respiratory Rate 18 Blood Pressure 110/78 Pulse Oximetry 99 Oxygen Delivery 05/17/24 08:00 05/17/24 09:30 Temperature Pulse Rate 57 L Pulse Rate [Bilateral Pedal (Dorsalis Pedis) Palpation] Pulse Rate [Right Radial Palpation] Respiratory Rate Blood Pressure Pulse Oximetry Oxygen Delivery Room Air Intake/Output Intake/Output: Intake & Output 05/14/24 05/15/24 05/16/24 05/17/24 23:59 23:59 23:59 23:59 Intake Total 1480 1788 Output Total 400 1300 Balance 1080 488 Meds/Results Medications: Active Medications Generic Name Dose Route Start Last Admin Trade Name Freq PRN Reason Stop Dose Admin Amlodipine Besylate 10 mg 05/17/24 09:00 05/17/24 09:22 Amlodipine Besylate 10 Mg Tablet PO 10 mg DAILY JORDYN Administration Lipase/Protease/Amylase 6 cap 05/17/24 08:00 05/17/24 09:22 Lipase/Amylase/Protease 12,000 Units Cap PO 6 cap TIDWM JORDYN Administration Baclofen 5 mg 05/16/24 21:45 05/17/24 09:22 Baclofen 5 Mg Tablet PO 5 mg TID JORDYN Administration Chlordiazepoxide HCl 25 mg 05/16/24 19:00 05/17/24 06:09 Chlordiazepoxide (*Crx) 25 Mg Capsule PO 25 mg Q6HR JORDYN Administration Folic Acid 1 mg 05/17/24 09:00 05/17/24 09:22 Folic Acid 1 Mg Tablet PO 1 mg DAILY JORDYN Administration Sodium Chloride 1,000 mls @ 150 mls/hr 05/16/24 15:40 05/17/24 06:08 Normal Saline Iv IV CONT 150 mls/hr .Q6H40M JORDYN Administration Lorazepam 1 mg 05/16/24 18:56 Lorazepam Inj (*Crx) 2 Mg/Ml Vial IV PUSH Q2H PRN CIWA 8-15 Lorazepam 2 mg 05/16/24 18:56 Lorazepam Inj (*Crx) 2 Mg/Ml Vial IV PUSH Q2H PRN CIWA > 15 Nicotine Polacrilex 4 mg 05/16/24 21:35 Nicotine (*Pbkc) 4 Mg Gum PO PRN PRN Nicotine Cravings Ondansetron HCl 4 mg 05/16/24 15:36 05/16/24 18:42 Ondansetron Inj 4 Mg/2 Ml Vial IV PUSH 4 mg Q4H PRN Administration Nausea Pregabalin 200 mg 05/16/24 21:45 05/16/24 22:00 Pregabalin (*Crx) 50 Mg Capsule PO 200 mg QHS JORDYN Administration Thiamine HCl 100 mg 05/17/24 09:00 05/17/24 09:23 Thiamine Hcl 100 Mg Tablet PO 100 mg QAM JORDYN Administration Radiology Results: ITS Impressions Abdomen/Pelvis CT 05/16/24 13:10 Impression 14 x 18 mm posterior left mid renal cyst. There is extensive abdominal aortic calcification as well as iliac and femoral arterial calcifications. No abdominal aortic aneurysm. No intraperitoneal or retroperitoneal or pelvic mass lesion or adenopathy or ascites. Moderate prostate enlargement which may in addition to limited urinary bladder distention for diffuse thickening of the urinary bladder wall. No focal urinary bladder wall thickening is identified. No bowel obstruction, bowel wall thickening, pneumatosis or intraperitoneal free air is detected. Very small fat-containing left inguinal hernia. Very small fat-containing umbilical hernia. No suspicious osteolytic or osteoblastic lesions. IMPRESSION: Hepatic steatosis Chronic pancreatitis 1.9 x 2.9 cm pancreatic tail cystic lesion; differential diagnosis is given above, including benign and malignant causes. Pancreatic pseudocyst would be at the top of the differential diagnosis considering the extensive pancreatic calcifications/chronic pancreatitis 9.7 x 13 mm right renal pelvic calculus and 2.4 mm nonobstructing lower pole left renal calculus 14 x 18 mm left mid renal cyst Moderate prostatomegaly, diffuse bladder wall thickening Labs Labs: Laboratory Results - last 24 hr 05/16/24 05/16/24 05/16/24 12:50 12:51 15:16 WBC 7.4 RBC 4.77 Hgb 14.9 Hct 42.9 MCV 89.9 MCH 31.2 MCHC 34.7 RDW 13.1 Plt Count 200 MPV 9.7 Immature Gran % (Auto) 0.1 Neut % (Auto) 74.9 H Lymph % (Auto) 13.6 L [place] % (Auto) 10.5 H Eos % (Auto) 0.4 Baso % (Auto) 0.5 Lymph # (Auto) 1.01 [place] # (Auto) 0.8 H Eos # (Auto) 0.0 Baso # (Auto) 0.0 Abs Immat Gran (auto) 0.01 Absolute Neuts (auto) 5.5 Absolute Nucleated RBC 0.000 Nucleated RBC % 0.0 PT 13.5 INR 1.0 APTT 28.4 Sodium 135 L Potassium 2.8 L* Chloride 98 Carbon Dioxide 29 Anion Gap 8 BUN 5 L D Creatinine 0.70 Estim Creat Clear Calc 105 Estimated GFR > 60 Glucose 151 H POC Capillary Glucose Lactic Acid 4.5 H* Calcium 8.2 L Magnesium 1.3 L Total Bilirubin 0.9 AST 60 H ALT 29 Alkaline Phosphatase 112 Total Protein 8.0 Albumin 4.3 Lipase 77 Beta-Hydroxybutyrate/Acetoacetate 0.05 Urine Color Urine Appearance Urine pH Ur Specific [place] Urine Protein Urine Glucose (UA) Urine Ketones Ur Blood (Man) Urine Nitrate Urine Bilirubin Urine Urobilinogen Leukocyte Esterase Rfl Urine RBC Urine WBC Ur Squamous Epith Cells Urine Bacteria Urine Casts Ethyl Alcohol < 10 Influenza A (RT-PCR) Influenza B (RT-PCR) RSV (RT-PCR) SARS-CoV-2 RNA (RT-PCR) Blood Type AB Positive Antibody Screen Positive Antibody Identification Anti-Zepeda A Antigen Identification Zepeda A Antigen - NEGATIVE CARLEY, IgG Interpret Neg CARLEY, Poly Interpret TNP CARLEY, Complement Interp Negative 05/16/24 05/16/24 05/16/24 15:22 15:28 16:32 WBC RBC Hgb Hct MCV MCH MCHC RDW Plt Count MPV Immature Gran % (Auto) Neut % (Auto) Lymph % (Auto) [place] % (Auto) Eos % (Auto) Baso % (Auto) Lymph # (Auto) [place] # (Auto) Eos # (Auto) Baso # (Auto) Abs Immat Gran (auto) Absolute Neuts (auto) Absolute Nucleated RBC Nucleated RBC % PT INR APTT Sodium Potassium Chloride Carbon Dioxide Anion Gap BUN Creatinine Estim Creat Clear Calc Estimated GFR Glucose POC Capillary Glucose Lactic Acid 1.8 Calcium Magnesium Total Bilirubin AST ALT Alkaline Phosphatase Total Protein Albumin Lipase Beta-Hydroxybutyrate/Acetoacetate Urine Color Yellow Urine Appearance Clear Urine pH 7.5 Ur Specific [place] 1.029 Urine Protein Negative Urine Glucose (UA) Negative Urine Ketones Negative Ur Blood (Man) 3+ H Urine Nitrate Negative Urine Bilirubin Negative Urine Urobilinogen 0.2 Leukocyte Esterase Rfl Negative Urine RBC >100 H Urine WBC 0-5 Ur Squamous Epith Cells None seen Urine Bacteria None seen Urine Casts 0-2 Ethyl Alcohol Influenza A (RT-PCR) Negative Influenza B (RT-PCR) Negative RSV (RT-PCR) Negative SARS-CoV-2 RNA (RT-PCR) Negative Blood Type Antibody Screen Antibody Identification Antigen Identification CARLEY, IgG Interpret CARLEY, Poly Interpret CARLEY, Complement Interp 05/16/24 05/16/24 05/17/24 17:08 21:10 00:18 WBC RBC Hgb Hct MCV MCH MCHC RDW Plt Count MPV Immature Gran % (Auto) Neut % (Auto) Lymph % (Auto) [place] % (Auto) Eos % (Auto) Baso % (Auto) Lymph # (Auto) [place] # (Auto) Eos # (Auto) Baso # (Auto) Abs Immat Gran (auto) Absolute Neuts (auto) Absolute Nucleated RBC Nucleated RBC % PT INR APTT Sodium 136 L Potassium 3.5 Chloride 101 Carbon Dioxide 28 Anion Gap 7 BUN 3 L Creatinine 0.70 Estim Creat Clear Calc 105 Estimated GFR > 60 Glucose 134 H POC Capillary Glucose 142 H Lactic Acid 2.2 H Calcium 7.4 L Magnesium 1.1 L Total Bilirubin AST ALT Alkaline Phosphatase Total Protein Albumin Lipase Beta-Hydroxybutyrate/Acetoacetate Urine Color Urine Appearance Urine pH Ur Specific [place] Urine Protein Urine Glucose (UA) Urine Ketones Ur Blood (Man) Urine Nitrate Urine Bilirubin Urine Urobilinogen Leukocyte Esterase Rfl Urine RBC Urine WBC Ur Squamous Epith Cells Urine Bacteria Urine Casts Ethyl Alcohol Influenza A (RT-PCR) Influenza B (RT-PCR) RSV (RT-PCR) SARS-CoV-2 RNA (RT-PCR) Blood Type Antibody Screen Antibody Identification Antigen Identification CARLEY, IgG Interpret CARLEY, Poly Interpret CARLEY, Complement Interp 05/17/24 05/17/24 04:28 06:14 WBC 4.8 RBC 4.13 L Hgb 12.9 L Hct 38.2 L MCV 92.5 MCH 31.2 MCHC 33.8 RDW 13.4 Plt Count 172 MPV 9.8 Immature Gran % (Auto) Neut % (Auto) Lymph % (Auto) [place] % (Auto) Eos % (Auto) Baso % (Auto) Lymph # (Auto) [place] # (Auto) Eos # (Auto) Baso # (Auto) Abs Immat Gran (auto) Absolute Neuts (auto) Absolute Nucleated RBC Nucleated RBC % PT INR APTT Sodium 137 Potassium 3.7 Chloride 107 Carbon Dioxide 28 Anion Gap 2 L BUN 3 L Creatinine 0.70 Estim Creat Clear Calc 105 Estimated GFR > 60 Glucose 109 POC Capillary Glucose 108 H Lactic Acid Calcium 7.5 L Magnesium 2.3 Total Bilirubin 1.0 AST 43 ALT 18 Alkaline Phosphatase 87 Total Protein 6.0 L Albumin 3.2 L Lipase Beta-Hydroxybutyrate/Acetoacetate Urine Color Urine Appearance Urine pH Ur Specific [place] Urine Protein Urine Glucose (UA) Urine Ketones Ur Blood (Man) Urine Nitrate Urine Bilirubin Urine Urobilinogen Leukocyte Esterase Rfl Urine RBC Urine WBC Ur Squamous Epith Cells Urine Bacteria Urine Casts Ethyl Alcohol Influenza A (RT-PCR) Influenza B (RT-PCR) RSV (RT-PCR) SARS-CoV-2 RNA (RT-PCR) Blood Type Antibody Screen Antibody Identification Antigen Identification CARLEY, IgG Interpret CARLEY, Poly Interpret CARLEY, Complement Interp
--- NOTE | 2024-05-17 11:42 | P.PNGI_ITS ---
Progress Note: A&P Assessment and Plan (1) Pancreas cyst: Code(s): K86.2 - Cyst of pancreas Status: Acute (2) Alcohol abuse: Code(s): F10.10 - Alcohol abuse, uncomplicated Status: Acute Plan chronic pancreatitis secondary to alcohol pancreatic pseudocyst / cyst at the tail of the pancreas abdominal pain improved I had a detailed discussion with the patient advised the patient that chronic pancreatitis carries risk off of pancreatic malignancy so far on the imaging we are not seeing any obvious pancreatic mass. I advised the patient to avoid alcohol will advance the diet to full liquid diet today will reassess the patient the patient is able to tolerate full liquid diet will advance to low-fat diet tomorrow I advised the patient to follow-up in the GI office in couple of weeks for further investigation of the cyst may be endoscopic ultrasound can be carried out as outpatient. I will also advise the patient to decrease the Creon to at least [id number] to 2 tablets 3 times a day Subjective Date/time seen: 05/17/24 11:42 Interval history: patient seen covering the regular GI team patient is doing well according to him is hungry and wants to eat food abdominal pain is improved but still has some abdominal discomfort according to be did not have any bowel movement and was not able to give any stool sample. I did discuss with him in detail according to immediate problems with the pancreas for a long time he used to drink alcohol according to me has been in [place] also has history of cyst gastrostomy has been on Creon. Patient is well aware of chronic pancreatitis I did discuss with him about the CT scan that showed a cyst in the tail of the pancreas Review of Systems Review of Systems: review of systems otherwise negative Exam Narrative: does not appear to be in any acute distress Neck: Other: supple Resp: Other: no tenderness Cardio: Other: S1-S2 regular rate rhythm GI: Other: mild discomfort/ tenderness in the abdomen no rebound no guarding bowel sounds positive Neuro: Other: intact Extrem: Other: no leg swellings Objective Data Vital Signs Vital Signs: Vital Signs - 24 hr 05/16/24 12:11 05/16/24 12:25 05/16/24 13:08 Temperature 97.6 F 97.6 F Pulse Rate 97 81 59 L Pulse Rate [Bilateral Pedal (Dorsalis Pedis) Palpation] Pulse Rate [Right Radial Palpation] Respiratory Rate 16 18 18 Blood Pressure 143/97 H 153/105 H 160/99 H Pulse Oximetry 100 100 100 Oxygen Delivery Room Air 05/16/24 12:31 05/16/24 13:33 05/16/24 14:15 Temperature 97.8 F 97.8 F 97.9 F Pulse Rate 78 61 63 Pulse Rate [Bilateral Pedal (Dorsalis Pedis) Palpation] Pulse Rate [Right Radial Palpation] Respiratory Rate 19 13 18 Blood Pressure 162/102 H 168/104 H 164/102 H Pulse Oximetry 98 100 98 Oxygen Delivery 05/16/24 15:01 05/16/24 15:30 05/16/24 16:19 Temperature 97.8 F 97.6 F Pulse Rate 73 60 73 Pulse Rate [Bilateral Pedal (Dorsalis Pedis) Palpation] Pulse Rate [Right Radial Palpation] Respiratory Rate 13 15 17 Blood Pressure 172/101 H 158/100 H 170/104 H Pulse Oximetry 98 100 98 Oxygen Delivery 05/16/24 16:50 05/16/24 17:07 05/16/24 18:56 Temperature 97.9 F Pulse Rate 62 62 Pulse Rate [Bilateral Pedal (Dorsalis Pedis) Palpation] Pulse Rate [Right Radial Palpation] 68 Respiratory Rate 12 Blood Pressure 158/93 H Pulse Oximetry 100 Oxygen Delivery 05/16/24 18:56 05/16/24 19:35 05/16/24 20:19 Temperature 99.1 F Pulse Rate 61 Pulse Rate [Bilateral Pedal (Dorsalis Pedis) Palpation] Pulse Rate [Right Radial Palpation] 88 Respiratory Rate 16 Blood Pressure 125/76 Pulse Oximetry 98 Oxygen Delivery Room Air 05/16/24 20:00 05/16/24 20:52 05/17/24 00:00 Temperature Pulse Rate 66 53 L Pulse Rate [Bilateral Pedal (Dorsalis Pedis) Palpation] Pulse Rate [Right Radial Palpation] Respiratory Rate Blood Pressure Pulse Oximetry Oxygen Delivery Room Air 05/17/24 04:00 05/17/24 05:26 05/17/24 09:25 Temperature 98.6 F Pulse Rate 49 L 49 L Pulse Rate [Bilateral Pedal (Dorsalis Pedis) Palpation] 50 L Pulse Rate [Right Radial Palpation] Respiratory Rate 18 Blood Pressure 110/78 Pulse Oximetry 99 Oxygen Delivery 05/17/24 08:00 05/17/24 09:30 Temperature Pulse Rate 57 L Pulse Rate [Bilateral Pedal (Dorsalis Pedis) Palpation] Pulse Rate [Right Radial Palpation] Respiratory Rate Blood Pressure Pulse Oximetry Oxygen Delivery Room Air Intake/Output Intake/Output: Intake & Output 05/14/24 05/15/24 05/16/24 05/17/24 23:59 23:59 23:59 23:59 Intake Total 1480 1788 Output Total 400 1300 Balance 1080 488 Meds/Results Medications: Active Medications Generic Name Dose Route Start Last Admin Trade Name Freq PRN Reason Stop Dose Admin Amlodipine Besylate 10 mg 05/17/24 09:00 05/17/24 09:22 Amlodipine Besylate 10 Mg Tablet PO 10 mg DAILY JORDYN Administration Lipase/Protease/Amylase 6 cap 05/17/24 08:00 05/17/24 09:22 Lipase/Amylase/Protease 12,000 Units Cap PO 6 cap TIDWM JORDYN Administration Baclofen 5 mg 05/16/24 21:45 05/17/24 09:22 Baclofen 5 Mg Tablet PO 5 mg TID JORDYN Administration Chlordiazepoxide HCl 25 mg 05/16/24 19:00 05/17/24 06:09 Chlordiazepoxide (*Crx) 25 Mg Capsule PO 25 mg Q6HR JORDYN Administration Folic Acid 1 mg 05/17/24 09:00 05/17/24 09:22 Folic Acid 1 Mg Tablet PO 1 mg DAILY JORDYN Administration Sodium Chloride 1,000 mls @ 150 mls/hr 05/16/24 15:40 05/17/24 06:08 Normal Saline Iv IV CONT 150 mls/hr .Q6H40M JORDYN Administration Lorazepam 1 mg 05/16/24 18:56 Lorazepam Inj (*Crx) 2 Mg/Ml Vial IV PUSH Q2H PRN CIWA 8-15 Lorazepam 2 mg 05/16/24 18:56 Lorazepam Inj (*Crx) 2 Mg/Ml Vial IV PUSH Q2H PRN CIWA > 15 Nicotine Polacrilex 4 mg 05/16/24 21:35 Nicotine (*Pbkc) 4 Mg Gum PO PRN PRN Nicotine Cravings Ondansetron HCl 4 mg 05/16/24 15:36 05/16/24 18:42 Ondansetron Inj 4 Mg/2 Ml Vial IV PUSH 4 mg Q4H PRN Administration Nausea Pregabalin 200 mg 05/16/24 21:45 05/16/24 22:00 Pregabalin (*Crx) 50 Mg Capsule PO 200 mg QHS JORDYN Administration Thiamine HCl 100 mg 05/17/24 09:00 05/17/24 09:23 Thiamine Hcl 100 Mg Tablet PO 100 mg QAM JORDYN Administration Radiology Results: ITS Impressions Abdomen/Pelvis CT 05/16/24 13:10 Impression 14 x 18 mm posterior left mid renal cyst. There is extensive abdominal aortic calcification as well as iliac and femoral arterial calcifications. No abdominal aortic aneurysm. No intraperitoneal or retroperitoneal or pelvic mass lesion or adenopathy or ascites. Moderate prostate enlargement which may in addition to limited urinary bladder distention for diffuse thickening of the urinary bladder wall. No focal urinary bladder wall thickening is identified. No bowel obstruction, bowel wall thickening, pneumatosis or intraperitoneal free air is detected. Very small fat-containing left inguinal hernia. Very small fat-containing umbilical hernia. No suspicious osteolytic or osteoblastic lesions. IMPRESSION: Hepatic steatosis Chronic pancreatitis 1.9 x 2.9 cm pancreatic tail cystic lesion; differential diagnosis is given above, including benign and malignant causes. Pancreatic pseudocyst would be at the top of the differential diagnosis considering the extensive pancreatic calcifications/chronic pancreatitis 9.7 x 13 mm right renal pelvic calculus and 2.4 mm nonobstructing lower pole left renal calculus 14 x 18 mm left mid renal cyst Moderate prostatomegaly, diffuse bladder wall thickening Labs Labs: Laboratory Results - last 24 hr 05/16/24 05/16/24 05/16/24 12:50 12:51 15:16 WBC 7.4 RBC 4.77 Hgb 14.9 Hct 42.9 MCV 89.9 MCH 31.2 MCHC 34.7 RDW 13.1 Plt Count 200 MPV 9.7 Immature Gran % (Auto) 0.1 Neut % (Auto) 74.9 H Lymph % (Auto) 13.6 L [place] % (Auto) 10.5 H Eos % (Auto) 0.4 Baso % (Auto) 0.5 Lymph # (Auto) 1.01 [place] # (Auto) 0.8 H Eos # (Auto) 0.0 Baso # (Auto) 0.0 Abs Immat Gran (auto) 0.01 Absolute Neuts (auto) 5.5 Absolute Nucleated RBC 0.000 Nucleated RBC % 0.0 PT 13.5 INR 1.0 APTT 28.4 Sodium 135 L Potassium 2.8 L* Chloride 98 Carbon Dioxide 29 Anion Gap 8 BUN 5 L D Creatinine 0.70 Estim Creat Clear Calc 105 Estimated GFR > 60 Glucose 151 H POC Capillary Glucose Lactic Acid 4.5 H* Calcium 8.2 L Magnesium 1.3 L Total Bilirubin 0.9 AST 60 H ALT 29 Alkaline Phosphatase 112 Total Protein 8.0 Albumin 4.3 Lipase 77 Beta-Hydroxybutyrate/Acetoacetate 0.05 Urine Color Urine Appearance Urine pH Ur Specific [place] Urine Protein Urine Glucose (UA) Urine Ketones Ur Blood (Man) Urine Nitrate Urine Bilirubin Urine Urobilinogen Leukocyte Esterase Rfl Urine RBC Urine WBC Ur Squamous Epith Cells Urine Bacteria Urine Casts Ethyl Alcohol < 10 Influenza A (RT-PCR) Influenza B (RT-PCR) RSV (RT-PCR) SARS-CoV-2 RNA (RT-PCR) Blood Type AB Positive Antibody Screen Positive Antibody Identification Anti-Zepeda A Antigen Identification Zepeda A Antigen - NEGATIVE CARLEY, IgG Interpret Neg CARLEY, Poly Interpret TNP CARLEY, Complement Interp Negative 05/16/24 05/16/24 05/16/24 15:22 15:28 16:32 WBC RBC Hgb Hct MCV MCH MCHC RDW Plt Count MPV Immature Gran % (Auto) Neut % (Auto) Lymph % (Auto) [place] % (Auto) Eos % (Auto) Baso % (Auto) Lymph # (Auto) [place] # (Auto) Eos # (Auto) Baso # (Auto) Abs Immat Gran (auto) Absolute Neuts (auto) Absolute Nucleated RBC Nucleated RBC % PT INR APTT Sodium Potassium Chloride Carbon Dioxide Anion Gap BUN Creatinine Estim Creat Clear Calc Estimated GFR Glucose POC Capillary Glucose Lactic Acid 1.8 Calcium Magnesium Total Bilirubin AST ALT Alkaline Phosphatase Total Protein Albumin Lipase Beta-Hydroxybutyrate/Acetoacetate Urine Color Yellow Urine Appearance Clear Urine pH 7.5 Ur Specific [place] 1.029 Urine Protein Negative Urine Glucose (UA) Negative Urine Ketones Negative Ur Blood (Man) 3+ H Urine Nitrate Negative Urine Bilirubin Negative Urine Urobilinogen 0.2 Leukocyte Esterase Rfl Negative Urine RBC >100 H Urine WBC 0-5 Ur Squamous Epith Cells None seen Urine Bacteria None seen Urine Casts 0-2 Ethyl Alcohol Influenza A (RT-PCR) Negative Influenza B (RT-PCR) Negative RSV (RT-PCR) Negative SARS-CoV-2 RNA (RT-PCR) Negative Blood Type Antibody Screen Antibody Identification Antigen Identification CARLEY, IgG Interpret CARLEY, Poly Interpret CARLEY, Complement Interp 05/16/24 05/16/24 05/17/24 17:08 21:10 00:18 WBC RBC Hgb Hct MCV MCH MCHC RDW Plt Count MPV Immature Gran % (Auto) Neut % (Auto) Lymph % (Auto) [place] % (Auto) Eos % (Auto) Baso % (Auto) Lymph # (Auto) [place] # (Auto) Eos # (Auto) Baso # (Auto) Abs Immat Gran (auto) Absolute Neuts (auto) Absolute Nucleated RBC Nucleated RBC % PT INR APTT Sodium 136 L Potassium 3.5 Chloride 101 Carbon Dioxide 28 Anion Gap 7 BUN 3 L Creatinine 0.70 Estim Creat Clear Calc 105 Estimated GFR > 60 Glucose 134 H POC Capillary Glucose 142 H Lactic Acid 2.2 H Calcium 7.4 L Magnesium 1.1 L Total Bilirubin AST ALT Alkaline Phosphatase Total Protein Albumin Lipase Beta-Hydroxybutyrate/Acetoacetate Urine Color Urine Appearance Urine pH Ur Specific [place] Urine Protein Urine Glucose (UA) Urine Ketones Ur Blood (Man) Urine Nitrate Urine Bilirubin Urine Urobilinogen Leukocyte Esterase Rfl Urine RBC Urine WBC Ur Squamous Epith Cells Urine Bacteria Urine Casts Ethyl Alcohol Influenza A (RT-PCR) Influenza B (RT-PCR) RSV (RT-PCR) SARS-CoV-2 RNA (RT-PCR) Blood Type Antibody Screen Antibody Identification Antigen Identification CARLEY, IgG Interpret CARLEY, Poly Interpret CARLEY, Complement Interp 05/17/24 05/17/24 04:28 06:14 WBC 4.8 RBC 4.13 L Hgb 12.9 L Hct 38.2 L MCV 92.5 MCH 31.2 MCHC 33.8 RDW 13.4 Plt Count 172 MPV 9.8 Immature Gran % (Auto) Neut % (Auto) Lymph % (Auto) [place] % (Auto) Eos % (Auto) Baso % (Auto) Lymph # (Auto) [place] # (Auto) Eos # (Auto) Baso # (Auto) Abs Immat Gran (auto) Absolute Neuts (auto) Absolute Nucleated RBC Nucleated RBC % PT INR APTT Sodium 137 Potassium 3.7 Chloride 107 Carbon Dioxide 28 Anion Gap 2 L BUN 3 L Creatinine 0.70 Estim Creat Clear Calc 105 Estimated GFR > 60 Glucose 109 POC Capillary Glucose 108 H Lactic Acid Calcium 7.5 L Magnesium 2.3 Total Bilirubin 1.0 AST 43 ALT 18 Alkaline Phosphatase 87 Total Protein 6.0 L Albumin 3.2 L Lipase Beta-Hydroxybutyrate/Acetoacetate Urine Color Urine Appearance Urine pH Ur Specific [place] Urine Protein Urine Glucose (UA) Urine Ketones Ur Blood (Man) Urine Nitrate Urine Bilirubin Urine Urobilinogen Leukocyte Esterase Rfl Urine RBC Urine WBC Ur Squamous Epith Cells Urine Bacteria Urine Casts Ethyl Alcohol Influenza A (RT-PCR) Influenza B (RT-PCR) RSV (RT-PCR) SARS-CoV-2 RNA (RT-PCR) Blood Type Antibody Screen Antibody Identification Antigen Identification CARLEY, IgG Interpret CARLEY, Poly Interpret CARLEY, Complement Interp
[2024-05-17 11:58] LABS: Glucose Point of Care 159 mg/dl (65-105)
[2024-05-17] MEDS: NICOTINE (*PBKC) 4 MG GUM PO ×2 (13:32→20:21)
[2024-05-17 18:03] LABS: Glucose Point of Care 155 mg/dl (65-105)
[2024-05-17] MEDS: PREGABALIN (*CRX) 50 MG CAPSULE 200 MG PO (20:19)
[2024-05-17 23:55] LABS: Glucose Point of Care 108 mg/dl (65-105)
[2024-05-18] VITALS (10 sets, daily range): BP systolic 130–147; BP diastolic 74–88; PULSE 45–99; RESP 16–18; TEMP 36.4–36.5; O2SAT 96–100
[2024-05-18] MEDS: SODIUM CHLORIDE 0.9% IV 1,000 ML 150 ML IV CONT ×3 (03:22→17:15)
[2024-05-18] MEDS: chlordiazePOXIDE (*CRX) 25 MG CAPSULE PO ×3 (05:52→18:36)
[2024-05-18 05:59] LABS: Glucose Point of Care 116 mg/dl (65-105)
--- NOTE | 2024-05-18 07:34 | P.PNIM_ITS ---
Progress Note: A&P Assessment and Plan (1) Chronic pancreatitis: Code(s): K86.1 - Other chronic pancreatitis Status: Acute Assessment and Plan: Patient endorses abdominal pain, nausea, vomiting, and diarrhea for 24 hours. Symptoms are likely related to chronic pancreatitis vs gastroenteritis. He reports a small amount of bright red blood admixed with a mucousy stool in this will be monitored. - Lipase 77 - Stool samples ordered - CT abdomen/pelvis Chronic pancreatitis 1.9 x 2.9 cm pancreatic tail cystic lesion; differential diagnosis is given above, including benign and malignant causes. Pancreatic pseudocyst would be at the top of the differential diagnosis considering the extensive pancreatic calcifications/chronic pancreatitis 9.7 x 13 mm right renal pelvic calculus and 2.4 mm nonobstructing lower pole left renal calculus 14 x 18 mm left mid renal cyst Moderate prostatomegaly, diffuse bladder wall thickening Hepatic steatosis - IV fluids - Diet: full liquid diet, advance to low fat diet tomorrow if tolerates well - GI consult Stool samples will be collected and if there is presence of leukocytes, will start antibiotics. Will also provide symptomatic treatment for nausea vomiting. Follow-up in the GI office in couple of weeks for further investigation of the cyst may be endoscopic ultrasound can be carried out as outpatient. Decrease the Creon to at least [id number] to 2 tablets 3 times a day 05/18- will need an outpt GI f/u in 6-8 weeks (2) Pancreatic lesion: Code(s): K86.9 - Disease of pancreas, unspecified Status: Acute Assessment and Plan: Pancreatic tail cystic lesions seen on CT may very well be pseudocyst. - CT abdomen/pelvis Chronic pancreatitis 1.9 x 2.9 cm pancreatic tail cystic lesion; differential diagnosis is given above, including benign and malignant causes. Pancreatic pseudocyst would be at the top of the differential diagnosis considering the extensive pancreatic calcifications/chronic pancreatitis - GI consulted Follow up in the GI office in a couple weeks for further investigation May be endoscopic US can be done outpatient f/u outpt with gi (3) Hypokalemia: Code(s): E87.6 - Hypokalemia Status: Acute Assessment and Plan: K 2.8 on admission. Repleted and has been stable. - Monitor (4) Rectal bleeding: Code(s): K62.5 - Hemorrhage of anus and rectum Status: Acute Assessment and Plan: Per chart review, he estimates at least 10 episodes of both vomiting and diarrhea. His stool is admixed with mucus and small amounts of bright red blood; emesis is nonbloody and nonbilious. H/H remains stable Denies any bloody stools since admission Monitor (5) Lactic acidosis: Code(s): E87.20 - Acidosis, unspecified Status: Acute Assessment and Plan: Lactic acid level is elevated at 4.5 on admission however is likely related to alcoholism; CT scan did not show any acute findings and he does not appear to have underlying infection. Repeat lactic acid 2.2 Continue IV fluid rehydration (6) Alcohol abuse: Code(s): F10.10 - Alcohol abuse, uncomplicated Status: Acute Assessment and Plan: He typically drinks a pt of vodka a day with his last drink being over 24 hours ago. No signs of alcohol withdrawal as of yet and denies shakes, hallucinations, anxiety, and sweats. - EtOH < 10 on admission - Schedule Librium and initiate CIWA protocol. (7) Bilateral nephrolithiasis: Code(s): N20.0 - Calculus of kidney Status: Acute Assessment and Plan: Bilateral renal stones are noted but are not causing any acute issues. - Follow up outpatient (8) Tobacco dependence: Code(s): F17.200 - Nicotine dependence, unspecified, uncomplicated Status: Acute Assessment and Plan: Nicotine gum available if needed. (9) Homeless: Code(s): Z59.00 - Homelessness unspecified Status: Acute Assessment and Plan: Care coordination consulted for homelessness and help finding a suitable senior living. Time Spent With Patient Time with patient: Greater than 35 minutes Subjective Date/time seen: 05/18/24 07:34 Interval history: 58-year-old male smoker with history of alcohol withdrawal seizure, alcohol abuse, hypertension, and chronic pancreatitis who presented to the emergency department with complaints of abdominal pain and bloody stools. Patient is pleasant lying comfortably in bed. Continues to endorse discomfort more so in the epigastric region. He was evaluated GI and no acute intervention is required at this time. He remains on CIWA protocols for alcohol withdrawal. He is not having any withdrawal symptoms at this time denying any chills, shakes, and hallucinations. 05/18- pt is seen and examined. advancing diet today. labs reviewed and stable. ciwa protocol ordered. care coordination helping with resources as pt is homeless. If tolerated diet well and labs are stable- anticipate discharge tomorrow. Review of Systems Review of Systems: 12 systems were reviewed and are negativ e except for as per HPI. All systems reviewed & are unremarkable except as noted in HPI and below Exam Narrative: AF HR 57 RR 18 SpO2 99 BP 110/78 General: male in no acute respiratory distress who is nontoxic appearing, lying semi recumbent in bed. HEENT: Normocephalic. Atraumatic. Extraocular movement intact. Sclera clear and anicteric. No facial asymmetry. Chest: Lungs are clear to auscultation bilaterally. No wheezes or crackles. CV: Heart was regular rate and rhythm. S1/S2. No murmurs, gallops, or rubs. Abd: Abdomen was soft. Mild tenderness without guarding. Nondistended. Positive bowel sounds. No organomegaly or masses. Ext: No clubbing, cyanosis, or edema. 2+ DP pulses bilaterally. Neuro: Speech is clear. Objective Data Vital Signs Vital Signs: Vital Signs - 24 hr 05/17/24 09:25 05/17/24 08:00 05/17/24 09:30 Temperature Pulse Rate 57 L Pulse Rate [Bilateral Pedal (Dorsalis Pedis) Palpation] 50 L Respiratory Rate Blood Pressure Pulse Oximetry Oxygen Delivery Room Air 05/17/24 12:00 05/17/24 12:00 05/17/24 13:30 Temperature 98.0 F Pulse Rate 82 65 Pulse Rate [Bilateral Pedal (Dorsalis Pedis) Palpation] 88 Respiratory Rate 16 Blood Pressure 117/73 Pulse Oximetry 99 Oxygen Delivery 05/17/24 16:00 05/17/24 16:00 05/17/24 19:52 Temperature 98.4 F Pulse Rate 74 55 L Pulse Rate [Bilateral Pedal (Dorsalis Pedis) Palpation] 80 Respiratory Rate 16 Blood Pressure 130/73 Pulse Oximetry 99 Oxygen Delivery 05/17/24 22:45 05/17/24 20:05 05/17/24 20:00 Temperature Pulse Rate 57 L Pulse Rate [Bilateral Pedal (Dorsalis Pedis) Palpation] Respiratory Rate Blood Pressure Pulse Oximetry 100 Oxygen Delivery Room Air Room Air 05/18/24 00:00 05/18/24 04:00 05/18/24 06:00 Temperature 97.5 F L Pulse Rate 49 L 45 L 47 L Pulse Rate [Bilateral Pedal (Dorsalis Pedis) Palpation] Respiratory Rate 16 Blood Pressure 147/82 H Pulse Oximetry 98 Oxygen Delivery Intake/Output Intake/Output: Intake & Output 05/15/24 05/16/24 05/17/24 05/18/24 23:59 23:59 23:59 23:59 Intake Total 1480 5143 1200 Output Total 400 4200 1750 Balance 1080 943 -296 Meds/Results Medications: Active Medications Generic Name Dose Route Start Last Admin Trade Name Freq PRN Reason Stop Dose Admin Amlodipine Besylate 10 mg 05/17/24 09:00 05/17/24 09:22 Amlodipine Besylate 10 Mg Tablet PO 10 mg DAILY JORDYN Administration Lipase/Protease/Amylase 6 cap 05/17/24 08:00 05/17/24 17:55 Lipase/Amylase/Protease 12,000 Units Cap PO 6 cap TIDWM JORDYN Administration Baclofen 5 mg 05/16/24 21:45 05/17/24 17:56 Baclofen 5 Mg Tablet PO 5 mg TID JORDYN Administration Chlordiazepoxide HCl 25 mg 05/16/24 19:00 05/18/24 05:52 Chlordiazepoxide (*Crx) 25 Mg Capsule PO 25 mg Q6HR JORDYN Administration Folic Acid 1 mg 05/17/24 09:00 05/17/24 09:22 Folic Acid 1 Mg Tablet PO 1 mg DAILY JORDYN Administration Sodium Chloride 1,000 mls @ 150 mls/hr 05/16/24 15:40 05/18/24 03:22 Normal Saline Iv IV CONT 150 mls/hr .Q6H40M JORDYN Administration Lorazepam 1 mg 05/16/24 18:56 Lorazepam Inj (*Crx) 2 Mg/Ml Vial IV PUSH Q2H PRN CIWA 8-15 Lorazepam 2 mg 05/16/24 18:56 Lorazepam Inj (*Crx) 2 Mg/Ml Vial IV PUSH Q2H PRN CIWA > 15 Nicotine Polacrilex 4 mg 05/16/24 21:35 05/17/24 20:21 Nicotine (*Pbkc) 4 Mg Gum PO 4 mg PRN PRN Administration Nicotine Cravings Ondansetron HCl 4 mg 05/16/24 15:36 05/16/24 18:42 Ondansetron Inj 4 Mg/2 Ml Vial IV PUSH 4 mg Q4H PRN Administration Nausea Pregabalin 200 mg 05/16/24 21:45 05/17/24 20:19 Pregabalin (*Crx) 50 Mg Capsule PO 200 mg QHS JORDYN Administration Thiamine HCl 100 mg 05/17/24 09:00 05/17/24 09:23 Thiamine Hcl 100 Mg Tablet PO 100 mg QAM JORDYN Administration Radiology Results: ITS Impressions Abdomen/Pelvis CT 05/16/24 13:10 Impression 14 x 18 mm posterior left mid renal cyst. There is extensive abdominal aortic calcification as well as iliac and femoral arterial calcifications. No abdominal aortic aneurysm. No intraperitoneal or retroperitoneal or pelvic mass lesion or adenopathy or ascites. Moderate prostate enlargement which may in addition to limited urinary bladder distention for diffuse thickening of the urinary bladder wall. No focal urinary bladder wall thickening is identified. No bowel obstruction, bowel wall thickening, pneumatosis or intraperitoneal free air is detected. Very small fat-containing left inguinal hernia. Very small fat-containing umbilical hernia. No suspicious osteolytic or osteoblastic lesions. IMPRESSION: Hepatic steatosis Chronic pancreatitis 1.9 x 2.9 cm pancreatic tail cystic lesion; differential diagnosis is given above, including benign and malignant causes. Pancreatic pseudocyst would be at the top of the differential diagnosis considering the extensive pancreatic calcifications/chronic pancreatitis 9.7 x 13 mm right renal pelvic calculus and 2.4 mm nonobstructing lower pole left renal calculus 14 x 18 mm left mid renal cyst Moderate prostatomegaly, diffuse bladder wall thickening Labs Labs: Laboratory Results - last 24 hr 05/17/24 05/17/24 05/17/24 11:53 18:00 23:52 POC Capillary Glucose 159 H 155 H 108 H 05/18/24 05:54 POC Capillary Glucose 116 H Quality VTE Prophylaxis VTE prophylaxis: mechanical ordered
[2024-05-18 08:37] LABS: Hematocrit 40.3 % (42.0-52.0); Hemoglobin 13.4 g/dL (14.0-18.0); Mean Corpuscular HGB Conc 33.3 g/dl (32-36); Mean Corpuscular Hemoglobin 31.4 pg (26-34); Mean Corpuscular Volume 94.4 fl (80-100); Mean Platelet Volume 10.1 fl (7.4-10.4); Platelet Count Result 163 k/mm3 (150-375); Red Blood Count 4.27 M/mm3 (4.6-6.20); Red Cell Distribution Width 13.3 % (11.5-14.5); White Blood Count 5.1 K/mm3 (4.5-10.0)
[2024-05-18] MEDS: FOLIC ACID 1 MG TABLET PO (08:41)
[2024-05-18] MEDS: THIAMINE HCL 100 MG TABLET PO (08:41)
[2024-05-18] MEDS: amLODIPine BESYLATE 10 MG TABLET PO (08:41)
[2024-05-18] MEDS: BACLOFEN 5 MG TABLET PO ×3 (08:41→18:36)
[2024-05-18] MEDS: LIPASE/AMYLASE/PROTEASE 12,000 UNITS CAP 6 CAP PO ×3 (08:41→18:36)
[2024-05-18 08:47] LABS: Anion Gap 4 mmol/L (4-12); Blood Urea Nitrogen 3 mg/dL (9-20); Calcium 7.5 mg/dL (8.4-10.2); Carbon Dioxide 25 mmol/L (22-30); Chloride 109 mmol/L (98-107); Estimated CRCL calculation 121 ml/min; Estimated Glomerular Filt Rate > 60; Glucose 102 mg/dL (65-110); Potassium 3.9 mmol/L (3.4-5.0); Sodium 138 mmol/L (137-145)
--- NOTE | 2024-05-18 12:07 | P.PNGI_ITS ---
Progress Note: A&P Assessment and Plan (1) Pancreas cyst: Code(s): K86.2 - Cyst of pancreas Status: Acute (2) Pancreatic lesion: Code(s): K86.9 - Disease of pancreas, unspecified Status: Acute (3) Chronic pancreatitis: Qualifiers: Pancreatitis type: alcohol induced Qualified Code(s): K86.0 - Alcohol- induced chronic pancreatitis Code(s): K86.1 - Other chronic pancreatitis Status: Acute Plan doing well from the GI perspective patient is tolerating the diet patient can always take some MiraLax for constipation. Continue with the a pancreatic enzymes as outpatient. I encouraged the patient to follow-up in the GI office in 6 to 8 weeks encouraged patient to stay away from alcohol from the GI perspective patient can be discharged and followed up as outpatient will sign off please call me with any questions Subjective Date/time seen: 05/18/24 12:07 Interval history: doing well tolerating the low-fat diet no nausea vomiting abdominal pain improved some problems with constipation Review of Systems Review of Systems: otherwise negative Exam Narrative: no acute distress laying in the bed comfortably Neck: Other: supple Resp: Other: air entry equal bilateral and clear Cardio: Other: S1-S2 regular rate rhythm GI: Other: abdomen soft nontender no rebound no guarding Objective Data Vital Signs Vital Signs: Vital Signs - 24 hr 05/17/24 13:30 05/17/24 16:00 05/17/24 16:00 Temperature 98.0 F Pulse Rate 65 74 Pulse Rate [Bilateral Pedal (Dorsalis Pedis) Palpation] 80 Respiratory Rate 16 Blood Pressure 117/73 Pulse Oximetry 99 Oxygen Delivery 05/17/24 19:52 05/17/24 22:45 05/17/24 20:05 Temperature 98.4 F Pulse Rate 55 L Pulse Rate [Bilateral Pedal (Dorsalis Pedis) Palpation] Respiratory Rate 16 Blood Pressure 130/73 Pulse Oximetry 99 100 Oxygen Delivery Room Air Room Air 05/17/24 20:00 05/18/24 00:00 05/18/24 04:00 Temperature Pulse Rate 57 L 49 L 45 L Pulse Rate [Bilateral Pedal (Dorsalis Pedis) Palpation] Respiratory Rate Blood Pressure Pulse Oximetry Oxygen Delivery 05/18/24 06:00 05/18/24 08:00 05/18/24 08:00 Temperature 97.5 F L Pulse Rate 47 L 55 L Pulse Rate [Bilateral Pedal (Dorsalis Pedis) Palpation] 54 L Respiratory Rate 16 Blood Pressure 147/82 H Pulse Oximetry 98 Oxygen Delivery 05/18/24 08:40 Temperature Pulse Rate Pulse Rate [Bilateral Pedal (Dorsalis Pedis) Palpation] Respiratory Rate Blood Pressure Pulse Oximetry 96 Oxygen Delivery Room Air Intake/Output Intake/Output: Intake & Output 05/15/24 05/16/24 05/17/24 05/18/24 23:59 23:59 23:59 23:59 Intake Total 1480 5143 1560 Output Total 400 4200 2500 Balance 1080 943 -972 Meds/Results Medications: Active Medications Generic Name Dose Route Start Last Admin Trade Name Freq PRN Reason Stop Dose Admin Amlodipine Besylate 10 mg 05/17/24 09:00 05/18/24 08:41 Amlodipine Besylate 10 Mg Tablet PO 10 mg DAILY JORDYN Administration Lipase/Protease/Amylase 6 cap 05/17/24 08:00 05/18/24 08:41 Lipase/Amylase/Protease 12,000 Units Cap PO 6 cap TIDWM JORDYN Administration Baclofen 5 mg 05/16/24 21:45 05/18/24 08:41 Baclofen 5 Mg Tablet PO 5 mg TID JORDYN Administration Chlordiazepoxide HCl 25 mg 05/16/24 19:00 05/18/24 05:52 Chlordiazepoxide (*Crx) 25 Mg Capsule PO 25 mg Q6HR JORDYN Administration Folic Acid 1 mg 05/17/24 09:00 05/18/24 08:41 Folic Acid 1 Mg Tablet PO 1 mg DAILY JORDYN Administration Sodium Chloride 1,000 mls @ 150 mls/hr 05/16/24 15:40 05/18/24 03:22 Normal Saline Iv IV CONT 150 mls/hr .Q6H40M JORDYN Administration Lorazepam 1 mg 05/16/24 18:56 Lorazepam Inj (*Crx) 2 Mg/Ml Vial IV PUSH Q2H PRN CIWA 8-15 Lorazepam 2 mg 05/16/24 18:56 Lorazepam Inj (*Crx) 2 Mg/Ml Vial IV PUSH Q2H PRN CIWA > 15 Nicotine Polacrilex 4 mg 05/16/24 21:35 05/17/24 20:21 Nicotine (*Pbkc) 4 Mg Gum PO 4 mg PRN PRN Administration Nicotine Cravings Ondansetron HCl 4 mg 05/16/24 15:36 05/16/24 18:42 Ondansetron Inj 4 Mg/2 Ml Vial IV PUSH 4 mg Q4H PRN Administration Nausea Pregabalin 200 mg 05/16/24 21:45 05/17/24 20:19 Pregabalin (*Crx) 50 Mg Capsule PO 200 mg QHS JORDYN Administration Thiamine HCl 100 mg 05/17/24 09:00 05/18/24 08:41 Thiamine Hcl 100 Mg Tablet PO 100 mg QAM JORDYN Administration Radiology Results: ITS Impressions Abdomen/Pelvis CT 05/16/24 13:10 Impression 14 x 18 mm posterior left mid renal cyst. There is extensive abdominal aortic calcification as well as iliac and femoral arterial calcifications. No abdominal aortic aneurysm. No intraperitoneal or retroperitoneal or pelvic mass lesion or adenopathy or ascites. Moderate prostate enlargement which may in addition to limited urinary bladder distention for diffuse thickening of the urinary bladder wall. No focal urinary bladder wall thickening is identified. No bowel obstruction, bowel wall thickening, pneumatosis or intraperitoneal free air is detected. Very small fat-containing left inguinal hernia. Very small fat-containing umbilical hernia. No suspicious osteolytic or osteoblastic lesions. IMPRESSION: Hepatic steatosis Chronic pancreatitis 1.9 x 2.9 cm pancreatic tail cystic lesion; differential diagnosis is given above, including benign and malignant causes. Pancreatic pseudocyst would be at the top of the differential diagnosis considering the extensive pancreatic calcifications/chronic pancreatitis 9.7 x 13 mm right renal pelvic calculus and 2.4 mm nonobstructing lower pole left renal calculus 14 x 18 mm left mid renal cyst Moderate prostatomegaly, diffuse bladder wall thickening Labs Labs: Laboratory Results - last 24 hr 05/17/24 05/17/24 05/18/24 18:00 23:52 05:54 WBC RBC Hgb Hct MCV MCH MCHC RDW Plt Count MPV Sodium Potassium Chloride Carbon Dioxide Anion Gap BUN Creatinine Estim Creat Clear Calc Estimated GFR Glucose POC Capillary Glucose 155 H 108 H 116 H Calcium 05/18/24 08:11 WBC 5.1 RBC 4.27 L Hgb 13.4 L Hct 40.3 L MCV 94.4 MCH 31.4 MCHC 33.3 RDW 13.3 Plt Count 163 MPV 10.1 Sodium 138 Potassium 3.9 Chloride 109 H Carbon Dioxide 25 Anion Gap 4 BUN 3 L Creatinine 0.60 L Estim Creat Clear Calc 121 Estimated GFR > 60 Glucose 102 POC Capillary Glucose Calcium 7.5 L
[2024-05-18 12:11] LABS: Glucose Point of Care 127 mg/dl (65-105)
[2024-05-18] MEDS: ACETAMINOPHEN 500 MG TABLET PO (13:57)
[2024-05-18] MEDS: NICOTINE (*PBKC) 4 MG GUM PO (13:58)
--- NOTE | 2024-05-18 14:31 | PC.NURSE ---
Spoke with Flora with Care Coordination to verify that patient received resources about housing, as patient is homeless and living out of his vehicle. Resources have been providing.
[2024-05-18 18:10] LABS: Glucose Point of Care 150 mg/dl (65-105)
[2024-05-18] MEDS: PREGABALIN (*CRX) 50 MG CAPSULE 200 MG PO (20:11)
[2024-05-19] VITALS: PULSE 49
[2024-05-19 00:14] LABS: Glucose Point of Care 155 mg/dl (65-105)
[2024-05-19 04:00] VITALS: PULSE 44
[2024-05-19 05:20] VITALS: BP 129/80; PULSE 44; RESP 16; TEMP 36.5; O2SAT 98
[2024-05-19 05:37] LABS: Glucose Point of Care 128 mg/dl (65-105)
[2024-05-19] MEDS: chlordiazePOXIDE (*CRX) 25 MG CAPSULE PO ×2 (05:50→12:08)
[2024-05-19 07:55] LABS: Hematocrit 41.9 % (42.0-52.0); Hemoglobin 13.9 g/dL (14.0-18.0); Mean Corpuscular HGB Conc 33.2 g/dl (32-36); Mean Corpuscular Volume 93.5 fl (80-100); Mean Platelet Volume 9.9 fl (7.4-10.4); Platelet Count Result 174 k/mm3 (150-375); Red Blood Count 4.48 M/mm3 (4.6-6.20); Red Cell Distribution Width 13.1 % (11.5-14.5); White Blood Count 6.3 K/mm3 (4.5-10.0)
[2024-05-19 08:00] VITALS: PULSE 45
[2024-05-19 08:27] LABS: Anion Gap 4 mmol/L (4-12); Blood Urea Nitrogen 9 mg/dL (9-20); Carbon Dioxide 27 mmol/L (22-30); Chloride 107 mmol/L (98-107); Estimated CRCL calculation 93 ml/min; Estimated Glomerular Filt Rate > 60; Glucose 113 mg/dL (65-110); Potassium 3.5 mmol/L (3.4-5.0); Sodium 138 mmol/L (137-145)
[2024-05-19 09:11] VITALS: BP 141/88; PULSE 64
[2024-05-19] MEDS: BACLOFEN 5 MG TABLET PO ×2 (09:12→12:08)
[2024-05-19] MEDS: THIAMINE HCL 100 MG TABLET PO (09:12)
[2024-05-19] MEDS: amLODIPine BESYLATE 10 MG TABLET PO (09:12)
[2024-05-19] MEDS: FOLIC ACID 1 MG TABLET PO (09:12)
[2024-05-19] MEDS: LIPASE/AMYLASE/PROTEASE 12,000 UNITS CAP 6 CAP PO ×2 (09:12→12:08)
[2024-05-19] MEDS: polyethylene glycoL 3350 17 GM POWD.PACK PO (09:16)
[2024-05-19 12:00] VITALS: PULSE 78
[2024-05-19 12:06] LABS: Glucose Point of Care 94 mg/dl (65-105)
--- NOTE | 2024-05-19 13:32 | P.DS_ITS ---
DS: Admitting Diagnosis Discharge Date 05/19/2024 Admitting Diagnosis Chronic pancreatitis Pancreatic lesion Hypokalemia Rectal bleeding Lactic acidosis Alcohol abuse Bilateral nephrolithiasis Tobacco dependence Homeless DS: Discharge Diagnosis Discharge Diagnosis (1) Chronic pancreatitis: Qualifiers: Pancreatitis type: alcohol induced Qualified Code(s): K86.0 - Alcohol- induced chronic pancreatitis Code(s): K86.1 - Other chronic pancreatitis Status: Acute (2) Pancreatic lesion: Code(s): K86.9 - Disease of pancreas, unspecified Status: Acute (3) Hypokalemia: Code(s): E87.6 - Hypokalemia Status: Acute (4) Rectal bleeding: Code(s): K62.5 - Hemorrhage of anus and rectum Status: Acute (5) Lactic acidosis: Code(s): E87.20 - Acidosis, unspecified Status: Acute (6) Alcohol abuse: Code(s): F10.10 - Alcohol abuse, uncomplicated Status: Acute (7) Bilateral nephrolithiasis: Code(s): N20.0 - Calculus of kidney Status: Acute (8) Tobacco dependence: Code(s): F17.200 - Nicotine dependence, unspecified, uncomplicated Status: Acute (9) Homeless: Code(s): Z59.00 - Homelessness unspecified Status: Acute DS: Summary Hospital Course Reason for hospitalization: Chronic pancreatitis Pancreatic lesion Hypokalemia Rectal bleeding Lactic acidosis Alcohol abuse Bilateral nephrolithiasis Tobacco dependence Homeless Hospital Course: 58-year-old male smoker with history of alcohol withdrawal seizure, alcohol abuse, hypertension, and chronic pancreatitis who presented to the hospital with complaints of abdominal pain and bloody stools. EtOH < 10 on admission. CIWA protocol initiated. Patient had no signs of withdrawal throughout admission. Encouraged continued alcohol cessation. Per chart review, he estimated at least 10 episodes of both vomiting and diarrhea. His stool is admixed with mucus and small amounts of bright red blood; emesis is nonbloody and nonbilious. He had no bloody stools during admission and H/H remained stable. He was hypokalemic during admission likely secondary to diarrhea. Received supplementation and resolved. Lactic acid level is elevated at 4.5 on admission however is likely related to alcoholism; CT scan did not show any acute findings and he does not appear to have underlying infection. Improved with IV fluids. Patients abdominal pain, nausea, vomiting, and diarrhea was likely related to chronic pancreatitis vs gastroenteritis. CT abdomen/pelvis showed chronic pancreatitis with 1.9 x 2.9 cm pancreatic tail cystic lesion, 9.7 x 13 mm right renal pelvic calculus and 2.4 mm nonobstructing lower pole left renal calculus, 14 x 18 mm left mid renal cyst, Moderate prostatomegaly, diffuse bladder wall thickening and Hepatic steatosis. GI consulted. Plan for symptomatic management, creon dose decreased and follow up in the outpatient setting. Patient was ready for discharge from GI perspective. During admission, patient was noted to be bradycardic overnight. Apnea link unremarkable for JOSH. Patient is homeless and lives in his truck. Care coordination was consulted and patient was given resources for warming centers and shelters in the area. At time of discharge patient has no complaints, denying chest pain, shortness of breath, palpitations, nausea/vomiting, abdominal pain, diarrhea. Tolerating his diet. Patient discharged in a stable condition. He is to follow up with GI as scheduled and his PCP in 1 week. Status at Discharge Functional status at discharge: independent ambulation Time Spent with Patient Time attestation: Total time spent providing and/or coordinating discharge services: Time spent: Greater than 30 minutes Exam Narrative: AF HR 78 RR 16 SpO2 98 BP 141/88 General: male in no acute respiratory distress who is nontoxic appearing, lying semi recumbent in bed. HEENT: Normocephalic. Atraumatic. Extraocular movement intact. Sclera clear and anicteric. No facial asymmetry. Chest: Lungs are clear to auscultation bilaterally. No wheezes or crackles. CV: Heart was regular rate and rhythm. S1/S2. No murmurs, gallops, or rubs. Abd: Abdomen was soft. Nontender. Nondistended. Positive bowel sounds. No organomegaly or masses. Neuro: Speech is clear. DS: Data Data Completed and Pending Completed studies during hospitalization: Abdomen/pelvis CT Labs on day of discharge: Labs from last 24 hours 05/19/24 05/19/24 05/19/24 11:59 07:39 05:23 WBC 6.3 RBC 4.48 L Hgb 13.9 L Hct 41.9 L MCV 93.5 MCH 31.0 MCHC 33.2 RDW 13.1 Plt Count 174 MPV 9.9 Sodium 138 Potassium 3.5 Chloride 107 Carbon Dioxide 27 Anion Gap 4 BUN 9 D Creatinine 0.80 Estim Creat Clear Calc 93 Estimated GFR > 60 Glucose 113 H POC Capillary Glucose 94 128 H Calcium 8.0 L 05/18/24 05/18/24 23:58 18:04 WBC RBC Hgb Hct MCV MCH MCHC RDW Plt Count MPV Sodium Potassium Chloride Carbon Dioxide Anion Gap BUN Creatinine Estim Creat Clear Calc Estimated GFR Glucose POC Capillary Glucose 155 H 150 H Calcium Preliminary micro results at discharge 05/16/24 15:08 Blood Culture - Preliminary Blood 05/16/24 15:22 Blood Culture - Preliminary Blood Discharge Plan Discharge Attending physician on discharge: Laura Mas Discharging Clinician: Katlin Pastor Anticipated Discharge Date/Time: 05/19/24 13:22 Patient Disposition: Home, Self-Care Activity: as tolerated Diet: as tolerated and low fat Discharge Instructions: Discharge disposition: Patient was admitted to the hospital for abdominal pain and bloody stools Abdominal pain symptoms were likely related to patients chronic pancreatitis Bloody stools resolved during admission GI evaluated patient and plan for follow up in their office in 6-8 weeks Continue low fat diet Encourage alcohol cessation Take medications as prescribed Dose of Creon has been decreased per GI Monitor blood pressures Take caution while standing, rising, or moving Change positions slowly taking a break between each position change If you standing feel dizzy sit back down and take a break Resources for warming centers and shelters were given to you by care coordinat ion Encouraged to continue with yearly vaccinations Return to the emergency department if he developed sudden shortness of breath, chest pain, nausea, vomiting, upset stomach or intractable diarrhea Return to the emergency department if you develop fever greater than 101.5 Follow-up with the primary care physician within 1 weeks, information to a PCP is attacheded Thank you for [facility] for your healthcare needs Patient Instructions: How to Stop Smoking (DC), Pancreatitis (DC), Low Fat Diet (DC), Abuse of Alcohol (DC), Alcohol Withdrawal (DC) Patient Language: Maldivian Stand Alone Forms: General Discharge Information, Work/School Release IP Follow-up/Referrals: Sherif Cm MD [Physician] - 1 Week Ike Rosales MD [Physician] - 6 Weeks Discharge Medications: New polyethylene glycol 3350 [Miralax] 17 gram Powder In Packet 17 g PO QAM PRN (Reason: Constipation) Qty: 14 0RF folic acid 1 mg Tablet 1 mg PO DAILY Qty: 30 0RF Creon 12,000-38,000 -60,000 unit Capsule,Delayed Release(Dr/Ec) 2 cap PO TIDWM 30 Days Qty: 180 0RF thiamine HCl (vitamin B1) [Vitamin B-1] 100 mg Tablet 100 mg PO QAM Qty: 30 0RF Continued Lyrica 200 mg PO QHS amlodipine 10 mg PO DAILY baclofen 5 mg PO TID Discontinued Creon 36,000-114,000- 180,000 unit capsule,delayed release(DR/EC) 2 cap PO TID Rx Instructions: takes 2 300-unit capsules TID Date of admission: 05/16/24 15:36 Primary Care Provider: PHYSICIAN,INSTALLATION DRAFTER Admitting Provider: Dat Nolasco Attending physician on admission: Katlin Pastor Condition: Stable Hospitalist MIPS Heart Failure (Exclusion) Patient has history of Heart Transplant or Left Ventricular Assistive Device?: No IF YES, STOP HERE Heart Failure (Qualifier) Patient has current or prior documentation of LVEF less than or equal to 40%, or mod/servere depressed LVSF?: No IF NO, STOP HERE
== END 2024-05-19 14:25 | disposition home or self-care (01) ==
LOC: ANHED 13:49 → ANH2MED 16:48
PROVIDERS: Emergency Medicine; Nurse Practitioner; Physician Assistant; Admitting Provider Internal Medicine; Emergency Provider Emergency Medicine; Visit Provider Student in an Organized Health Care Education/Training Program
DX: K86.0 Alcohol-induced chronic pancreatitis (principal); K52.9 Noninfective gastroenteritis and colitis, unspecified; E87.6 Hypokalemia; E87.20 Acidosis, unspecified; R00.1 Bradycardia, unspecified; N20.0 Calculus of kidney; I10 Essential (primary) hypertension; G40.909 Epilepsy, unspecified, not intractable, without status epilepticus; Z59.00 Homelessness unspecified; K86.2 Cyst of pancreas; K76.0 Fatty (change of) liver, not elsewhere classified; N40.0 Benign prostatic hyperplasia without lower urinary tract symptoms; F10.10 Alcohol abuse, uncomplicated; F12.90 Cannabis use, unspecified, uncomplicated; F17.200 Nicotine dependence, unspecified, uncomplicated; Z20.822 Contact with and (suspected) exposure to COVID-19
CPT/HCPCS: 36415; 74177; 80048; 80053; 81001; 82010; 82077; 82948; 83605; 83690; 83735; 85025; 85027; 85610; 85730; 86850; 86880; 86900; 86901; 86902; 87040; 87045; 87427; 87449; 87637; 93005; 94762; 96360; 96361; 96365; 96366; 96374; 96375; 99285; A9270; G0378; G0379; J2060; J2405; J3411; J3475; J3480; J7030; J7040; Q9967

== ENCOUNTER 2024-06-14 07:06 | Emergency (ER) | payer MEDICAID, SELFPAY ==
--- OUTSIDE RECORDS SUMMARY | 2024-06-21 04:20 | XMS_ITS | Encounter Summary ---
Author Organization [employer] Care Team Providers Care Chemical Dependency Professional Name Role Phone Provider, None Primary Care Provider Unavailabl e Encounter Details Date Type Department Care Team (Latest Contact Info) Description 02/14/2024 Travel Social History Tobacco Use Types Packs/Day Years Used Date Smoking Tobacco: Every Day Cigarettes Smokeless Tobacco: Never Alcohol Use Standard Drinks/Week Comments Yes 0 (1 standard drink = 0.6 oz pur e alcohol) daily [facility] Utilities Answer Date Recorded In the past 12 months has [employer], gas, oil, or water [employer] threatened to shut off services in your home? Patient declined 02/14/2024 Social Connection and Isolation Panel [NHANES] A nswer Date Recorded In a typical week, how many times do you talk on the phone with family, friends, or neighbors? Patient declined 02/14/2024 How often do you get togethe r with friends or relatives? Patient declined 02/14/2024 How often do you attend sikh or restoration serv ices? Patient declined 02/14/2024 Do you belong to any clubs o r organizations such as sikh groups, unions, fraternal or athletic groups, or school groups? Patient declined 02/14/2024 How often do you attend meet ings of the clubs or organizations you belong to? Patient declined 02/14/2024 Are you , , di vorced, , never , or living with a partner? Patient declined 02/14/2024 AUDIT-C Answer Date Recorded Q1: How often do you have a drink containing alc ohol? Patient declined 02/14/2024 Q2: How many drinks containi ng alcohol do you have on a typical day when you are drinking? Patient declined 02/14/2024 Q3: How often do you have si x or more drinks on one occasion? Patient declined 02/14/2024 Overall Financial Resource Strain (CARDIA) Answe r Date Recorded How hard is it for you to pa y for the very basics like food, housing, medical care, and heating? Very hard 02/14/2024 [facility] - Occupational Stress Questionnaire Answer Date Recorded Do you feel stress - tense, restless, nervous, or anxious, or unable to sleep at night because your mind is troubled all the time - these days? Patient declined 02/14/2024 Exercise Vital Sign Answer Date Recorde d On average, how many days pe r week do you engage in moderate to strenuous exercise (like a brisk walk)? 0 days 02/14/2024 On average, how many minutes do you engage in exercise at this level? 0 min 02/14/2024 Hunger Vital Sign Answer Date Recorded Within the past 12 months, y ou worried that your food would run out before you got the money to buy more. Often true 02/14/20 24 Within the past 12 months, t he food you bought just didn't last and you didn't have money to get more. Often true 02/14/2024 PRAPARE - Transportation Answer Date Re corded In the past 12 months, has l ack of transportation kept you from medical appointments or from getting medications? No 01/17 In the past 12 months, has l ack of transportation kept you from meetings, work, or from getting things needed for daily living? No 02/14/2024 Housing Stability Vital Sign Answer Joshua e Recorded In the last 12 months, was t here a time when you were not able to pay the mortgage or rent on time? Yes 02/14/2024 In the past 12 months, how m any times have you moved where you were living? 4 02/14/2024 At any time in the past 12 m [facility], were you homeless or living in a usp (including now)? Yes 02/14/2024 Sex and Gender Information Value Date Recorded Sex Assigned at Not on file Legal Sex Male 1:56 PM CDT Gender Identity Not on file Sexual Orientation Not on file documented as of this encounter Functional Status * Audit-C Score Answer Date of Assessment Author -1 02/14/2024 11:31 AM William Jacobson RN * Within the last year, have you been humiliated or emotionally abused in other ways by your partner or ex-partner? Answer Date of Assessment Author Patient declined 02/14/2024 11:31 AM Rosetta Jacobson RN * Within the last year, have you been afraid of your partner or ex-partner? Answer Date of Assessment Author Patient declined 02/14/2024 11:31 AM Rosetta Jacobson RN * Within the last year, have you been raped or forced to have any kind of sexual activity by your partner or ex-partner? Answer Date of Assessment Author Patient declined 02/14/2024 11:31 AM Rosetta Jacboson RN * Within the last year, have you been kicked, hit, slapped, or otherwise physically hurt by your partner or ex-partner? Answer Date of Assessment Author Patient declined 02/14/2024 11:31 AM Rosetta Jacobson RN * Question Answer Date of Assessment Author Q1: How often do you have a drink containing alcohol? Patient declined 02/14/2024 11:31 AM Rosetta Jacobson RN Q2: How many drinks containing alcohol do you have on a typical day when you are drinking? Patient declined 02/14/2024 11:31 AM Rosetta Jacobson RN Q3: How often do you have six or more drinks on one occasion? Patient declined 02/14/2024 11:31 AM Rosetta Jacobson RN documented as of this encounter Plan of Treatment Not on file documented as of this encounter Visit Diagnoses Not on filedocumented in this encounter Care Teams Chemical Dependency Professional Relationship Specialty Start Date End Date Provider, Juan Francisco JUDD PCP - General 02/13/24 documented as of this encounter
--- OUTSIDE RECORDS SUMMARY | 2024-06-21 04:20 | XMS_ITS | Clinical Summary ---
Author Organization [facility] Address [address] [place] [address] Phone Care Team Providers Care Snowboard Instructor Name Role Phone Provider, None Primary Care Provider Unavailabl e Allergies No known active allergies Medications * This document contains information received from the source organization and may not represent a complete record from that organization. ondansetron (ZOFRAN) 4 MG Tablet Take 1 Tablet by mouth every 8 hours as needed for Nausea - 1st line. 10 Tablet 4 Active AMLODIPINE BESYLATE PO Take 5 mg by mouth daily. Active chlordiazePOXIDE (LIBRIUM) 10 MG CapsuleIndicatio ns:Alcohol withdrawal syndrome without complication (HCC) Take 1 Capsule by mouth 3 times daily as needed for Withdrawal. 50 Capsule 4 Active traZODone (DESYREL) 150 MG Tablet Take 1 Tablet by mouth nightly. 30 Tablet 4 Active folic acid (FOLVITE) 1 MG Tablet Take 1 Tablet by mouth daily. 30 Tablet 4 Active magnesium oxide (MAG-OX) 400 (240 Mg) MG Tablet Take 1 Tablet by mouth daily. 30 Tablet 4 Active nicotine (NICODERM CQ) 21 MG/24HR PATCH 24 HR 1 Patch by Transdermal route daily as needed for Other (Nicotine dependency). 30 Patch 4 Active nicotine polacrilex (NICORETTE) 2 MG Gum Take 1 Each by mouth every 2 hours as needed for Smoking cessation. 100 gum 4 Active Pancrelipase, Owo-Imjk-Oqni, (CREON 97256) [id number] Capsule DR Particles Take 1 Capsule by mouth 2 times daily (with meals). Active Active Problems Problem Noted Date Diagnosed Date Alcohol withdrawal 02/14/2024 HTN (hypertension) 02/14/2024 Insomnia 02/14/2024 Pancreatic insufficiency 02/14/2024 Alcoholic liver disease 02/14/2024 Hypokalemia 02/14/2024 Social History Tobacco Use Types Packs/Day Years Used Date Smoking Tobacco: Every Day Cigarettes Smokeless Tobacco: Never Tobacco Cessation:Ready to Q uit: Not Asked; Counseling Given: Not Answered Alcohol Use Standard Drinks/Week Comments Yes 0 (1 standard drink = 0.6 oz pur e alcohol) daily [facility] Utilities Answer Date Recorded In the past 12 months has [employer], gas, oil, or water company threatened to shut off services in your home? Patient declined 02/14/2024 Social Connection and Isolation Panel [NHANES] A nswer Date Recorded In a typical week, how many times do you talk on the phone with family, friends, or neighbors? Patient declined 02/14/2024 How often do you get togethe r with friends or relatives? Patient declined 02/14/2024 How often do you attend temple or anabaptist serv ices? Patient declined 02/14/2024 Do you belong to any clubs o r organizations such as temple groups, unions, fraternal or athletic groups, or [...] medical care, and heating? Very hard 02/14/2024 [facility] [place] of Occupat ional Health - Occupational Stress Questionnaire Answer Date Recorded [...] any time in the past 12 m [facility], were you homeless or living in a assisted (including now)? Yes 02/14/2024 Sex and Gender Information Value Date Recorded Sex Assigned at Not on file Legal Sex Male 1:56 PM CDT Gender Identity Not on file Sexual Orientation Not on file Last Filed Vital Signs Vital Sign Reading Time Taken Comments Blood Pressure 126/73 02/18/2024 7:00 AM CDT Pulse 60 02/18/2024 7:00 AM CDT Temperature 34.5 ??C (94.1 ??F) 02/18/2024 7:00 AM CD T Respiratory Rate 20 02/18/2024 7:00 AM CDT Oxygen Saturation 100% 02/18/2024 7:00 AM CDT Inhaled Oxygen Concentration - - Weight 86.2 kg (190 lb) 02/14/2024 11:27 AM CDT Height 177.8 cm (5' 10 ) 02/14/2024 11:27 AM CDT Body Mass Index 27.26 02/14/2024 11:27 AM CDT Plan of Treatment Health Maintenance Due Date Last Done Comments TdaP Immunization 1965 Pneumococcal Immunization Co mbined (1 of 2 - PCV) 10/13/1973 Hepatitis B Immunization (1 of 3 - 19+ 3-dose series) 10/13/1986 Pneumococcal Immunization (5 0+ years) (1 of 2 - PCV) 10/13/1986 Colonoscopy 10/13/2012 Colorectal Cancer Screening 10/13/2012 Cologuard 10/13/2017 Immunochemical Fecal Occult Blood 10/13/2017 Zoster Immunization (1 of 2) 10/13/2017 PSA Discussion 10/13/2022 Influenza Immunization (#1) 2024 03/03/2021 SARS-COV-2 Immunization (2 - season) 2024 05/31/2022 Respiratory Syncytial Virus (RSV) Immunization (Adult) (1 - 1-dose 75+ series) 10/13/2042 Hepatitis C Virus (HCV) Screening Completed 021 Meningococcal Immunization (ACWY) Aged Out No longer eligible based on patient's age to complete this topic Rotavirus Immunization Aged Out No lo nger eligible based on patient's age to complete this topic Insurance MEDICAID [place] Advance Directives * Full Code (Latest Code Status on File) Date Activated Date Inactivated Comments 02/14/2024 5:05 PM CPR-Full Treat ment: FULL ARREST: Attempt Resuscitation/CPR wit intubation and mechanical ventilation. PRE-ARREST: Use entire range of life support measures to stabilize the patient. Care Teams Snowboard Instructor Relationship Specialty Start Date End Date Provider, None [place] PCP - General 02/13/24
--- OUTSIDE RECORDS SUMMARY | 2024-06-21 04:20 | XMS_ITS | Encounter Summary ---
Author Organization [facility] Address [address] [place] [address] Phone Care Team Providers Care V Block Saw Operator Name Role Phone Provider, None Primary Care Provider Unavailabl e Reason for Visit * Reason Comments Alcohol Intoxication * Auth/Cert (Routine) Specialty Diagnoses / Procedures Referred By Contac t Referred To Contact Diagnoses Alcohol dependence with withdrawal, unspecified Reviewed [facility] 02/25 Referral ID Status Reason Start Date Expiration Date Visits Re quested Visits Authorized [id number] 1 1 Encounter Details Date Type Department Care Team (Late st Contact Info) Description 02/13/2024 3:02 PM CDT - 02/13/2024 8:38 PM CDT Emergency [facility] Emergency [address] [place] [address] Rigo Bullard, PAC [address] [place] [address] Hypokalemia Discharge Disposition: Discharged to home or Selfcare Social History Tobacco Use Types Packs/Day Years Used Date Smoking Tobacco: Never Assessed [facility] Utilities Answer Date Recorded In the past 12 months has [employer] electric, gas, oil, or water company threatened [...] declined 02/14/2024 How often do you attend advent or episcopalian serv ices? Patient declined 02/14/2024 Do you belong to any clubs o r organizations such as advent groups, unions, fraternal or athletic groups, or [...] medical care, and heating? Very hard 02/14/2024 [facility] - Occupational Stress [...] any time in the past 12 m [facility], were you homeless or living in a half-way (including now)? Yes 02/14/2024 Sex and Gender Information Value Date Recorded Sex Assigned at Not on file Legal Sex Male 1:56 PM CDT Gender Identity Not on file Sexual Orientation Not on file documented as of this encounter Last Filed Vital Signs Vital Sign Reading Time Taken Comments Blood Pressure 150/99 02/13/2024 8:15 PM CDT Pulse 68 02/13/2024 8:15 PM CDT Temperature 36.6 ??C (97.8 ??F) 02/13/2024 1:19 PM CD T Respiratory Rate 16 02/13/2024 8:15 PM CDT Oxygen Saturation 100% 02/13/2024 8:15 PM CDT Inhaled Oxygen Concentration - - Weight 99.8 kg (220 lb) 02/13/2024 1:19 PM CDT Height 177.8 cm (5' 10 ) 02/13/2024 1:19 PM CDT Body Mass Index 31.57 02/13/2024 1:19 PM CDT documented in this encounter Medications at Time of Discharge AMLODIPINE BESYLATE PO Take 5 mg by mouth daily. chlordiazePOXIDE (LIBRIUM) 10 MG CapsuleIndications :Alcohol withdrawal syndrome without complication (HCC) Take 1 Capsule by mouth 3 times daily as needed for Withdrawal. 50 Capsule 02/18/2024 folic acid (FOLVITE) 1 MG Tablet Take 1 Tablet by mouth daily. 30 Tablet 02/19/2024 magnesium oxide (MAG-OX) 400 (240 Mg) MG Tablet Take 1 Tablet by mouth daily. 30 Tablet 02/18/2024 nicotine (NICODERM CQ) 21 MG/24HR PATCH 24 HR 1 Patch by Transdermal route daily as needed for Other (Nicotine dependency). 30 Patch 02/18/2024 nicotine polacrilex (NICORETTE) 2 MG Gum Take 1 Each by mouth every 2 hours as needed for Smoking cessation. 100 gum 02/18/2024 ondansetron (ZOFRAN) 4 MG Tablet Take 1 Tablet by mouth every 8 hours as needed for Nausea - 1st line. 10 Tablet 02/13/2024 Pancrelipase, Ozg-Hrlz-Mxcg, (CREON 95309) [id number] Capsule DR Particles Take 1 Capsule by mouth 2 times daily (with meals). traZODone (DESYREL) 150 MG Tablet Take 1 Tablet by mouth nightly. 30 Tablet 02/18/2024 Adekikb-Qbpwbh-Rjl tease (CREON 10 PO) Take by mouth. potassium chloride (MICRO-K) 10 MEQ Capsule CR Take 1 Capsule by mouth 2 times daily for 30 days. 60 Capsule 02/13/2024 thiamine (VITAMIN B1) 100 MG Tablet Take 1 Tablet by mouth daily for 30 days. 30 Tablet 02/19/2024 TRAZODONE HCL PO Take 150 mg by mouth nightly. 4 documented as of this encounter ED Notes * Romulo Bravo RN - 02/13/2024 8:33 PM CDT Patient discharged. Discharge instructions and patient educational material reviewed with patient; questions and concerns addressed; patient verbalizes understanding, using teach back. Patient was given 0 prescriptions. Patient was informed no drinking alcohol, driving or operating heavy machinery while taking ETOH. Patient ambulatory to ER exit with a steady gait and friend as responsible constitution party.SL D/C'ed with Deniz cath intact. Pt alert and oriented x 4 with respirations that are even and unlabored at tod. * Romulo Bravo RN - 02/13/2024 7:53 PM CDT Patient is resting in room with call light at bedside. Patient informed about wait time and verbalizes understanding. Patient denies needs at this time and verbalizes understanding that RN will complete hourly rounding. * Romulo Bravo RN - 02/13/2024 7:08 PM CDT Pt spoke with ride, denies further needs at this time. * Romulo Bravo RN - 02/13/2024 6:08 PM CDT Pt provided with sandwich, denies further needs at at this time * Romulo Bravo RN - 02/13/2024 5:09 PM CDT Patient is resting in room with call light at bedside. Patient informed about wait time and verbalizes understanding. Patient denies needs at this time and verbalizes understanding that RN will complete hourly rounding. * Romulo Bravo RN - 02/13/2024 4:42 PM CDT Pt medicated per provider orders. Pt educated on intended effects and side effects of medication and verbalized understanding, able to provide teach back of education. * Romulo Bravo RN - 02/13/2024 4:33 PM CDT Pt medicated per provider orders. Pt educated on intended effects and side effects of medication and verbalized understanding, able to provide teach back of education. * Rigo Bullard PAC - 02/13/2024 3:41 PM CDT Chief Complaint Patient presents with Alcohol Intoxication Vikas Wheeler is a 58 y.o. male who presents to the ED c/o acute alcohol intoxication with heavyEtOH on board. Patient states he drank 1/5 vodka this morning. Patient came to the hospital for [facility] admission but was declined for current intoxication. Patient made comment that he was going to drive home so patient was sent to the emergency room for safe keeping. Past Medical History Positives No date: Alcohol abuse No date: Hypertension Current Facility-Administered Medications Medication Dose Route Frequency Provider Last Rate Last Admin thiamine (VITAMIN B1) tablet 100 mg 100 mg Oral Daily Rigo Bullard, PAC 100 mg at 02/13/24 1642 Current Outpatient Medications Medication Sig Dispense Refill ondansetron (ZOFRAN) 4 MG Tablet Take 1 Tablet by mouth every 8 hours as needed for Nausea - 1st line. 10 Tablet 0 potassium chloride (MICRO-K) 10 MEQ Capsule CR Take 1 Capsule by mouth 2 times daily for 30 days. 60 Capsule 0 Not on File Past Medical History Positives Diagnosis Date Alcohol abuse Hypertension No past surgical history on file. Social History Socioeconomic History Marital status: Spouse name: Not on file Number of children: Not on file Years of education: Not on file Highest education level: Not on file Occupational History Not on file Tobacco Use Smoking status: Not on file Smokeless tobacco: Not on file Substance and Sexual Activity Alcohol use: Not on file Drug use: Not on file Sexual activity: Not on file Other Topics Concern Not on file Social History Narrative Not on file Social Determinants of Health Financial Resource Needs: Low Risk (11/28/2023) Received from [facility] Financial Resource Strain Difficulty of Paying Living Expenses: 3 Difficulty of Paying Living Expenses: Not on file Food Insecurity Needs: No Food Insecurity (11/28/2023) Received from [facility] Food Insecurity Worried About Running Out of Food in the Last Year: 1 Transportation Needs: No Transportation Needs (11/28/2023) Received from [facility] Transportation Needs Lack of Transportation (Medical): 1 Physical Activity: Not on file Stress: Not on file Social Integration: Socially Integrated (11/28/2023) Received from [facility] Social Connections Frequency of Communication with Friends and Family: 0 Intimate Partner Violence: Not on file Housing Stability: Low Risk (11/28/2023) Received from [facility] Housing Stability Unable to Pay for Housing in the Last Year: 1 BP (!) 150/99 Pulse 68 Temp 97.8 ??F (36.6 ??C) (Tympanic) Resp 16 Ht 5' 10 (1.778 m) Wt220 lb (99.8 kg) SpO2 100% BMI 31.57 kg/m?? Review of Systems Physical Exam Procedures Recent Results (from the past 24 hour(s)) Magnesium (Mg) [id number] Result Value Ref Range MAGNESIUM 1.6 1.6 - 2.6 mg/dL Comprehensive Metabolic Panel (Cmp) [id number] Result Value Ref Range SODIUM 143 136 - 145 mmol/L POTASSIUM 2.6 (LL) 3.5 - 5.1 mmol/L CHLORIDE 108 (H) 98 - 107 mmol/L CO2, VENOUS 21 (L) 22 - 30 mmol/L ANION GAP 16.6 <18.0 mmol/L GLUCOSE 127 (H) 70 - 99 mg/dL BUN 7 (L) 8 - 26 mg/dL CREATININE, BLOOD 0.83 0.70 - 1.30 mg/dL BUN/CREATININE RATIO 8 (L) 12 - 20 ratio TOTAL PROTEIN 7.3 6.3 - 8.2 g/dL ALBUMIN 4.0 3.5 - 5.0 g/dL A/G RATIO 1.2 1.0 - 2.2 CALCIUM 8.1 (L) 8.7 - 10.5 mg/dL T BILI 0.4 0.2 - 1.2 mg/dL SGOT (AST) 180 (H) 5 - 34 U/L SGPT (ALT) 86 (H) 0 - 55 U/L ALKALINE PHOSPHATASE 83 40 - 150 U/L GFR, ESTIMATED >60 >=60 GFR, EST. >60 >=60 GFR, EST. NONAFRICAN >60 >=60 Ethyl Alcohol(Ethanol) [id number] Result Value Ref Range ETHANOL 447 (H) <10 mg/dL CBC with Auto Differential Result Value Ref Range WBC 4.55 4.00 - 12.00 10(3)/mcL RBC 4.65 4.40 - 5.80 10(6)/mcL HEMOGLOBIN (HGB) 14.8 13.0 - 16.5 g/dL HEMATOCRIT (HCT) 43.4 38.0 - 50.0 % MCV 93.3 82.0 - 96.0 fL MCH 31.8 26.0 - 32.0 pg MCHC 34.1 31.0 - 36.0 g/dL PLATELET COUNT 200 140 - 440 10(3)/mcL RDW 15.4 11.8 - 15.5 % MPV 9.7 8.0 - 12.6 fL NEUTROPHILS 37.6 (L) 40.0 - 68.0 % LYMPHOCYTES 40.0 19.0 - 49.0 % MONOCYTES 14.9 (H) 3.0 - 13.0 % EOSINOPHILS 6.2 0.0 - 8.0 % BASOPHILS 1.3 (H) 0.0 - 1.0 % ABSOLUTE NEUTROPHILS 1.71 1.40 - 5.30 10(3)/mcL ABSOLUTE LYMPHOCYTES 1.82 0.90 - 3.30 10(3)/mcL ABSOLUTE MONOCYTES 0.68 0.10 - 0.90 10(3)/mcL ABSOLUTE EOSINOPHIL 0.28 0.00 - 0.50 10(3)/mcL ABSOLUTE BASOPHILS 0.06 0.00 - 0.10 10(3)/mcL NRBC PER 100 WBC 0 Imaging Results None Medical Decision Making See HPI for details. Patient heavily intoxicated. No delirium. Contacted [facility] repSamson, patient is not able to be admitted to to [facility] at this time due to EtOH level. Patient understanding. Will try to find a ride home. Potassium supplement. Fluids started, folic acid and thiamine provided. 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 Will be discharge to their care. Call [facility] tomorrow for placement. Return to ED for worsening sxs. Amount and/or Complexity of Data Reviewed Labs: ordered. Clinical Impression 1. Acute alcoholic intoxication without complication (HCC) 2. Hypokalemia Disposition: Discharge The patient remained stable throughout their ED stay. My clinical impression was discussed with thepatient/family. Labs and radiology results were reviewed with them. I gave them the opportunity to ask questions, and addressed them as completely as possible given the information available at present. The therapeutic plan was discussed, advised to take medications as instructed, instructions weregiven and the importance of primary care follow up was stressed and encouraged. The patient/family voiced understanding of the plan, indications to return, and the need for follow up. Cosigned by Ole Lynn MD at 02/15/2024 11:02 PM CDT * Torri Dos Santos RN - 02/13/2024 1:21 PM CDT Patient to ED for alcohol intoxication. Patient denies any symptoms other than being very drunk . Patient VSS and labs drawn during triage. No acute signs of distress noted. Patient states he is daily drinker and drank a fifth of vodka. documented in this encounter Plan of Treatment Not on file documented as of this encounter Procedures Procedure Name Priority Date/Time Associated Diagnosis Comments EXTRA TUBES STAT 02/13/2024 1:22 PM CDT GOLD TOP TUBE STAT 02/13/2024 1:22 PM CDT BLUE TOP TUBE STAT 02/13/2024 1:22 PM CDT CBC WITH AUTO DIFFERENTIAL STAT 02/13/2024 1:22 PM CDT MAGNESIUM (MG) STAT 02/13/2024 1:22 PM CDT ETHYL ALCOHOL (ETHANOL) STAT 02/13/2024 1:22 PM CDT CMP (COMPREHENSIVE METABOLIC PANEL) STAT 02/13/2024 1:22 PM CDT COMPLETE BLOOD COUNT (CBC) WITH DIFF STAT 02/13/2024 1:22 PM CDT documented in this encounter Results * Gold Top Tube (02/13/2024 1:22 PM CDT) Blood No Phlebotomy Charged / Unknown 02/13/2024 1:22 PM CDT 02/13/2024 1:52 PM CDT us Rigo Bullard PAC CHEMISTRY ORDERABLES Final Result [facility] [place] [address] * Blue Top Tube (02/13/2024 1:22 PM CDT) Blood No Phlebotomy Charged / Unknown 02/13/2024 1:22 PM CDT 02/13/2024 1:52 PM CDT us Rigo Lew Juan Miguel PAC HEMATOLOGY ORDERABLE S Final Result [facility] [address] [place] [address] * (ABNORMAL) CBC with Auto Differential (02/13/2024 1:22 PM CDT) WBC 4.55 4.00 - 12.00 10(3)/mcL 02/13/2024 1:52 PM CDT [facility] RBC 4.65 4.40 - 5.80 10(6)/mcL 02/13/2024 1:52 PM CDT [facility] HEMOGLOBIN (HGB) 14.8 13.0 - 16.5 g/dL 02/13/2024 1:52 PM CDT [facility] HEMATOCRIT (HCT) 43.4 38.0 - 50.0 % 02/13/2024 1:52 PM CDT [facility] MCV 93.3 82.0 - 96.0 fL 02/13/2024 1:52 PM CDT [facility] MCH 31.8 26.0 - 32.0 pg 02/13/2024 1:52 PM CDT [facility] MCHC 34.1 31.0 - 36.0 g/dL 02/13/2024 1:52 PM CDT [facility] PLATELET COUNT 200 140 - 440 10(3)/mcL 02/13/2024 1:52 PM CDT [facility] RDW 15.4 11.8 - 15.5 % 02/13/2024 1:52 PM CDT [facility] MPV 9.7 8.0 - 12.6 fL 02/13/2024 1:52 PM CDT [facility] NEUTROPHILS 37.6(L) 40.0 - 68.0 % 02/13/2024 1:52 PM CDT [facility] LYMPHOCYTES 40.0 19.0 - 49.0 % 02/13/2024 1:52 PM CDT [facility] MONOCYTES 14.9(H) 3.0 - 13.0 % 02/13/2024 1:52 PM CDT [facility] EOSINOPHILS 6.2 0.0 - 8.0 % 02/13/2024 1:52 PM CDT [facility] BASOPHILS 1.3(H) 0.0 - 1.0 % 02/13/2024 1:52 PM CDT [facility] ABSOLUTE NEUTROPHILS 1.71 1.40 - 5.30 10(3)/[facility] 02/13/2024 1:52 PM CDT [facility] ABSOLUTE LYMPHOCYTES 1.82 0.90 - 3.30 10(3)/[facility] 02/13/2024 1:52 PM CDT [facility] ABSOLUTE MONOCYTES 0.68 0.10 - 0.90 10(3)/[facility] 02/13/2024 1:52 PM CDT [facility] ABSOLUTE EOSINOPHIL 0.28 0.00 - 0.50 10(3)/[facility] 02/13/2024 1:52 PM CDT [facility] ABSOLUTE BASOPHILS 0.06 0.00 - 0.10 10(3)/[facility] 02/13/2024 1:52 PM CDT [facility] NRBC PER 100 WBC 0 02/13/20 1:52 PM CDT [facility] Blood Venipuncture / Unknown 02/13/2024 1:22 PM CDT 02/13/2024 1:51 PM CDT us Ole Lynn MD HEMATOLOGY ORDERABLES Zully l Result [facility] [address] [place] [address] * (ABNORMAL) Ethyl Alcohol(Ethanol) [id number] (02/13/2024 1:22 PM CDT) ETHANOL 447(H) <10 mg/dL 02/13/2024 2:12 PM CDT [facility] Blood Venipuncture / Unknown 02/13/2024 1:22 PM CDT 02/13/2024 2:00 PM CDT Ole Lynn MD CHEMISTRY ORDERABLES Final Result [facility] [address] [place] [address] * (ABNORMAL) Comprehensive Metabolic Panel (Cmp) [id number] (02/13/2024 1:22 PM CDT) SODIUM 143 136 - 145 mmol/L 02/13/2024 2:15 PM CDT [facility] POTASSIUM 2.6(LL) 3.5 - 5.1 mmol/L 02/13/2024 2:15 PM CDT [facility] CHLORIDE 108(H) 98 - 107 mmol/L 02/13/2024 2:15 PM CDT [facility] CO2, VENOUS 21(L) 22 - 30 mmol/L 02/13/2024 2:15 PM CDT [facility] ANION GAP 16.6 <18.0 mmol/L 02/13/2024 2:15 PM CDT [facility] GLUCOSE 127(H) 70 - 99 mg/dL 02/13/2024 2:15 PM CDT [facility] BUN 7(L) 8 - 26 mg/dL 02/13/2024 2:15 PM CDT [facility] CREATININE, BLOOD 0.83 0.70 - 1.30 mg/dL 02/13/2024 2:15 PM CDT [facility] BUN/CREATININE RATIO 8(L) 12 - 20 ratio 02/13/2024 2:15 PM CDT [facility] TOTAL PROTEIN 7.3 6.3 - 8.2 g/dL 02/13/2024 2:15 PM CDT [facility] ALBUMIN 4.0 3.5 - 5.0 g/dL 02/13/2024 2:15 PM CDT [facility] A/G RATIO 1.2 1.0 - 2.2 02/13/2024 2:15 PM CDT [facility] CALCIUM 8.1(L) 8.7 - 10.5 mg/dL 02/13/2024 2:15 PM CDT [facility] T BILI 0.4 0.2 - 1.2 mg/dL 02/13/2024 2:15 PM CDT [facility] SGOT (AST) 180(H) 5 - 34 U/L 02/13/2024 2:15 PM CDT [facility] SGPT (ALT) 86(H) 0 - 55 U/L 02/13/2024 2:15 PM CDT [facility] ALKALINE PHOSPHATASE 83 40 - 150 U/L 02/13/2024 2:15 PM CDT [facility] GFR, ESTIMATED >60 >=60 02/13/2024 2:15 PM CDT [facility] Comment: Creatinine Clearance is the preferred criteria for selecting drug dose adjustments in renally impaired patients. ??The GFR is provided as additional pertinent clinical information. GFR is reported in mL/min/1.73 sq m. Calculation based on the Chronic Kidney Disease Epidemiology Collaboration (CKD- EPI) equation refit without adjustment for race. GFR, EST. >60 >=60 024 2:15 PM CDT [facility] GFR, EST. NONAFRICAN >60 >=60 02/13/2024 2:15 PM CDT [facility] Blood Venipuncture / Unknown 02/13/2024 1:22 PM CDT 02/13/2024 2:00 PM CDT us Ole Lynn MD CHEMISTRY ORDERABLES Final Result [facility] [address] [place] [address] * Magnesium (Mg) [id number] (02/13/2024 1:22 PM CDT) MAGNESIUM 1.6 1.6 - 2.6 mg/dL 02/13/2024 2:15 PM CDT [facility] Blood Venipuncture / Unknown 02/13/2024 1:22 PM CDT 02/13/2024 2:00 PM CDT us Ole Lynn MD CHEMISTRY ORDERABLES Final Result [facility] [address] [place] [address] documented in this encounter Visit Diagnoses Diagnosis Acute alcoholic intoxication without complication (HCC)- Primary Hypokalemia Hypopotassemia documented in this encounter Administered Medications Inactive Administered Medications - up to 3 most recent administrations Medication Order MAR Action Action Date Dose Rate Site 0.9 % sodium chloride solution at 999 mL/hr, Intravenous, ONCE, 1 dose, On Sun02/13/24 at 1630 New Bag 02/13/2024 4:30 PM CDT 999 mL/hr 0.9 % sodium chloride with potassium chloride 20 mEq/L infusion at 250 mL/hr, Intravenous, ONCE, 1 dose, On Sun02/13/24 at 1630 New Bag 02/13/2024 4:31 PM CDT 250 mL/hr folic acid (FOLVITE) tablet 1 mg 1 mg, Oral, ONCE, 1 dose, On Sun02/13/24 at 1630 Given 02/13/2024 4:30 PM CDT 1 mg potassium chloride SA (KLORCON M) tablet 40 mEq 40 mEq, Oral, ONCE, 1 dose, On Sun02/13/24 at 1630, Do Not Crush Given 02/13/2024 4:30 PM CDT 40 mEq thiamine (VITAMIN B1) tablet 100 mg 100 mg, Oral, DAILY, First dose on Sun02/13/24 at 1630, Until Discontinued Given 02/13/2024 4:42 PM CDT 100 mg documented in this encounter Active and Recently Administered Medications Times are shown in CDT. Scheduled Medication Order 02/11/2024 02/12/2024 02/13/2024 0.9 % sodium chloride solution (COMPLETED) at 999 mL/hr, Intravenous, ONCE, 1 dose, On Sun02/13/24 at 1630 1630 (New Bag - Prov ider: oRmulo Bravo RN)2032 (Stopped - Provider: Romulo Bravo RN) 0.9 % sodium chloride with potassium chloride 20 mEq/L infusion (COMPLETED) at 250 mL/hr, Intravenous, ONCE, 1 dose, On Sun02/13/24 at 1630 1631 (New Bag - Prov ider: Romulo Bravo RN)2032 (Stopped - Provider: Romulo Bravo RN) folic acid (FOLVITE) tablet 1 mg (COMPLETED) 1 mg, Oral, ONCE, 1 dose, On Sun02/13/24 at 1630 1630 (Given - Provid er: Romulo Braov RN) potassium chloride SA (KLORCON M) tablet 40 mEq (COMPLETED) 40 mEq, Oral, ONCE, 1 dose, On Sun02/13/24 at 1630, Do Not Crush 1630 (Given - Provid er: Romulo Bravo RN) thiamine (VITAMIN B1) tablet 100 mg 100 mg, Oral, DAILY, First dose on Sun02/13/24 at 1630, Until Discontinued 1642 (Given - Provid er: Romulo Bravo RN) documented in this encounter Care Teams V Block Saw Operator Relationship Specialty Start Date End Date Provider, None [place] PCP - General 02/13/24 documented as of this encounter
--- OUTSIDE RECORDS SUMMARY | 2024-06-21 04:20 | XMS_ITS | Encounter Summary ---
Author Organization [facility] Care Team Providers Care See Supervisor Name Role Phone Provider, None Primary Care Provider Unavailabl e Encounter Details Date Type Department Care Team (Latest Contact Info) Description 02/13/2024 Travel Social History Tobacco Use Types Packs/Day Years Used Date Smoking Tobacco: Never Assessed [facility] Utilities Answer Date Recorded In the past 12 months has th e electric, gas, oil, or water company threatened [...] declined 02/14/2024 How often do you attend spiritism or pentecostalism serv ices? Patient declined 02/14/2024 Do you belong to any clubs o r organizations such as spiritism groups, unions, fraternal or athletic groups, or [...] medical care, and heating? Very hard 02/14/2024 [facility] [place] of Occupat ional Health - Occupational Stress [...] any time in the past 12 m [facility], were you homeless or living in a chcf (including now)? Yes 02/14/2024 Sex and Gender Information Value Date Recorded Sex Assigned at Not on file Legal Sex Male 1:56 PM CDT Gender Identity Not on file Sexual Orientation Not on file documented as of this encounter Plan of Treatment Not on file documented as of this encounter Visit Diagnoses Not on filedocumented in this encounter Care Teams See Supervisor Relationship Specialty Start Date End Date Provider, None [facility] PCP - General 02/13/24 documented as of this encounter
--- OUTSIDE RECORDS SUMMARY | 2024-06-21 04:20 | XMS_ITS | Encounter Summary ---
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 have a non-epileptic seizure that lasts longer than 5 minutes. These symptoms may represent a serious problem that is an emergency. Do not wait to see if the symptoms will go away. Get medical help right away. Call your local emergency services (471 in the [place] Do not drive yourself to the hospital. If you ever feel like you may hurt yourself or others, or have thoughts about taking your own life,get help right away. Go to your nearest emergency department or: Call your local emergency services (114 in the [place] Call a suicide crisis helpline, such as the National Suicide Prevention Lifeline at or 741 in the [place] This is open 24 hours a day in the [place] Text the Crisis Text Line at 085633 (in the [place] Summary Non-epileptic seizures are events that can cause abnormal movements or a loss of consciousness. These events are caused by an underlying problem with body function or a mental health disorder. The treatment for your non-epileptic seizures will depend on their cause. When the underlying condition is treated, your non-epileptic seizures should stop. Medicines for seizures do not treat non-epileptic events. People with non-epileptic seizures may also have epileptic seizures and may need medicines to treatseizures. Make sure family members, friends, and coworkers are trained in how to help you if you have a non-epileptic seizure. This includes laying you on the ground to prevent a fall, protecting your head andneck, and turning you onto your side. This information is not intended to replace advice given to you by your health care provider. Make sure you discuss any questions you have with your health care provider. Document Released: 2006-07-20 Document Updated: 2021-12-28 Document Reviewed: 2020-11-19 [employer] Patient Education ? 2023 [employer] documented in this encounter Plan of Treatment Not on file documented as of this encounter Procedures Procedure Name Priority Date/Time Associated Diagnosis Comments CT HEAD OR BRAIN WO CONTRAST Stat with Interpretation 02/14/2024 1:04 AM CDT TROPONIN I, HIGH SENSITIVITY (HSTRP) STAT 02/14/2024 1:01 AM CDT BASIC METABOLIC PANEL W/ CALCIUM TOTAL STAT 02/14/2024 1:01 AM CDT CBC WITH AUTO DIFFERENTIAL STAT 02/14/2024 1:00 AM CDT COMPLETE BLOOD COUNT (CBC) WITH DIFF STAT 02/14/2024 1:00 AM CDT EKG 12 LEAD STAT 02/14/2024 12:45 AM CDT EKG SCAN 02/14/2024 12:00 AM CDT documented in this encounter Results * CT HEAD OR BRAIN WO CONTRAST (02/14/2024 1:04 AM CDT) Anatomical Region Laterality Modality Head N/A Computed Tomogra phy 02/14/2024 1:11 AM CDT Impressions 02/14/2024 1:13 AM CDT IMPRESSION: No acute intracranial findings. Narrative 02/14/2024 1:13 AM CDT EXAM DESCRIPTION: CT HEAD OR BRAIN WO CONTRAST REASON FOR STUDY: New onset seizure. TECHNIQUE: Axial images acquired through the brain without intravenous contrast. ??Images stored on PACS. ?? Automated exposure control was used as a dose optimization technique for this examination. COMPARISON: None. FINDINGS: BRAIN: ?? There is mild frontoparietal predominant volume loss. ?There is a small focal area of encephalomalacia of the right basal ganglia and small focal area of encephalomalacia in the bilateral caudate heads, fimd-[id number]-ykka-right as evidence for chronic lacunar infarcts. ?There are mild patchy areas of hypodensity in the periventricular, subcortical and deep white matter as evidence for chronic microvascular angiopathy. ??Varela-white matter differentiation otherwise appears preserved. ??No intracranial hemorrhage is evident. EXTRA-AXIAL SPACES: ?? No fluid collections. No mass effect. CALVARIUM: ?? Appears intact. SINUSES/MASTOIDS: ?? Visualized portions are clear. ORBITS: ?? No significant abnormality. OTHER: ?? No other significant abnormality. THIS IS AN ELECTRONICALLY VERIFIED FINAL REPORT 02/14/2024 1:11 AM - Electronically signed by ??Vipin Slaughter M.D., D.O. Vipin Slaughter M.D., D.O. MW: BECK D: ??02/14/2024 1:11 AM T: ??02/14/2024 1:11 AM Report ID: [id number] Reading Location: ??[id number] Procedure Note Vipin Slaughter, DO - 02/14/2024 EXAM DESCRIPTION: CT HEAD OR BRAIN WO CONTRAST REASON FOR STUDY: New onset seizure. TECHNIQUE: Axial images acquired through the brain without intravenous contrast. Images stored on PACS. Automated exposure control was used as a dose optimization technique for this examination. COMPARISON: None. FINDINGS: BRAIN: There is mild frontoparietal predominant volume loss. There is a small focal area of encephalomalacia of the right basal ganglia and small focal area of encephalomalacia in the bilateral caudate heads, cyic-eiphyve-ulog-right as evidence for chronic lacunar infarcts. There are mild patchy areas of hypodensity in the periventricular, subcortical and deep white matter as evidence for chronic microvascular angiopathy. Varela-white matter differentiation otherwise appears preserved. No intracranial hemorrhage is evident. EXTRA-AXIAL SPACES: No fluid collections. No mass effect. CALVARIUM: Appears intact. SINUSES/MASTOIDS: Visualized portions are clear. ORBITS: No significant abnormality. OTHER: No other significant abnormality. THIS IS AN ELECTRONICALLY VERIFIED FINAL REPORT 02/14/2024 1:11 AM - Electronically signed by Vipin Slaughter M.D., D.O. Vipin Slaughter M.D., D.O. MW: BECK Report ID: [id number] Reading Location: [id number] IMPRESSION: No acute intracranial findings. Vikas Richardson MD IM CT ORDERABLES Fi nal Result * TROPONIN I, HIGH SENSITIVITY (HSTRP) (02/14/2024 1:01 AM CDT) TROPONIN I, HIGH SENSITIVITY- DIEGO 6 <=35 ng/L 02/14/2024 1:32 AM CDT [facility] Comment: High-sensitivity troponin I results are reported in ng/L making the result appear to be 1,000 times higher than the contemporary troponin I value which is reported in ng/ml. Results from [place]. Blood Venipuncture / Unknown 02/14/2024 1:01 AM CDT 02/14/2024 1:01 AM CDT us Vikas Richradson MD CHEMISTRY ORDERABLES Final Result [facility] [place] [address] * (ABNORMAL) BMP w/ Ca (02/14/2024 1:01 AM CDT) SODIUM 141 136 - 145 mmol/L 02/14/2024 1:25 AM CDT [facility] POTASSIUM 3.0(L) 3.5 - 5.1 mmol/L 02/14/2024 1:25 AM CDT [facility] CHLORIDE 104 98 - 107 mmol/L 02/14/2024 1:25 AM CDT [facility] CO2, VENOUS 24 22 - 30 mmol/L 02/14/2024 1:25 AM CDT [facility] ANION GAP 16.0 <18.0 mmol/L 02/14/2024 1:25 AM CDT [facility] GLUCOSE 102(H) 70 - 99 mg/dL 02/14/2024 1:25 AM CDT [facility] BUN 7(L) 8 - 26 mg/dL 02/14/2024 1:25 AM CDT [facility] CREATININE, BLOOD 0.76 0.70 - 1.30 mg/dL 02/14/2024 1:25 AM CDT [facility] BUN/CREATININE RATIO 9(L) 12 - 20 ratio 02/14/2024 1:25 AM CDT [facility] CALCIUM 7.9(L) 8.7 - 10.5 mg/dL 02/14/2024 1:25 AM CDT [facility] GFR, ESTIMATED >60 >=60 02/14/2024 1:25 AM CDT [facility] Comment: Creatinine Clearance is the preferred criteria for selecting drug dose adjustments in renally impaired patients. ??The GFR is provided as additional pertinent clinical information. GFR is reported in mL/min/1.73 sq m. Calculation based on the Chronic Kidney Disease Epidemiology Collaboration (CKD- EPI) equation refit without adjustment for race. GFR, EST. >60 >=60 024 1:25 AM CDT [facility] GFR, EST. NONAFRICAN >60 >=60 02/14/2024 1:25 AM CDT [facility] Blood Venipuncture / Unknown 02/14/2024 1:01 AM CDT 02/14/2024 1:01 AM CDT us Vikas Richardson MD CHEMISTRY ORDERABLES Final Result [facility] [address] [place] [address] * (ABNORMAL) CBC with Auto Differential (02/14/2024 1:00 AM CDT) WBC 6.03 4.00 - 12.00 10(3)/mcL 02/14/2024 1:07 AM CDT [facility] RBC 4.17(L) 4.40 - 5.80 10(6)/mcL 02/14/2024 1:07 AM CDT [facility] HEMOGLOBIN (HGB) 13.3 13.0 - 16.5 g/dL 02/14/2024 1:07 AM CDT [facility] HEMATOCRIT (HCT) 38.1 38.0 - 50.0 % 02/14/2024 1:07 AM CDT [facility] MCV 91.4 82.0 - 96.0 fL 02/14/2024 1:07 AM CDT [facility] MCH 31.9 26.0 - 32.0 pg 02/14/2024 1:07 AM CDT [facility] MCHC 34.9 31.0 - 36.0 g/dL 02/14/2024 1:07 AM CDT [facility] PLATELET COUNT 182 140 - 440 10(3)/mcL 02/14/2024 1:07 AM CDT [facility] RDW 15.2 11.8 - 15.5 % 02/14/2024 1:07 AM CDT [facility] MPV 9.6 8.0 - 12.6 fL 02/14/2024 1:07 AM CDT [facility] NEUTROPHILS 53.7 40.0 - 68.0 % 02/14/2024 1:07 AM CDT [facility] LYMPHOCYTES 24.9 19.0 - 49.0 % 02/14/2024 1:07 AM CDT [facility] MONOCYTES 14.6(H) 3.0 - 13.0 % 02/14/2024 1:07 AM CDT [facility] EOSINOPHILS 5.8 0.0 - 8.0 % 02/14/2024 1:07 AM CDT [facility] BASOPHILS 1.0 0.0 - 1.0 % 02/14/2024 1:07 AM CDT [facility] ABSOLUTE NEUTROPHILS 3.24 1.40 - 5.30 10(3)/mcL 02/14/2024 1:07 AM CDT [facility] ABSOLUTE LYMPHOCYTES 1.50 0.90 - 3.30 10(3)/[facility] 02/14/2024 1:07 AM CDT [facility] ABSOLUTE MONOCYTES 0.88 0.10 - 0.90 10(3)/[facility] 02/14/2024 1:07 AM CDT [facility] ABSOLUTE EOSINOPHIL 0.35 0.00 - 0.50 10(3)/[facility] 02/14/2024 1:07 AM CDT [facility] ABSOLUTE BASOPHILS 0.06 0.00 - 0.10 10(3)/[facility] 02/14/2024 1:07 AM [facility] NRBC PER 100 WBC 0 02/14/20 1:07 AM T [facility] Blood Venipuncture / Unknown 02/14/2024 1:00 AM CDT 02/14/2024 1:01 AM CDT us Vikas Richardson MD HEMATOLOGY ORDERABLE S Final Result [facility] [address] [place] [address] * EKG 12 LEAD (02/14/2024 12:45 AM CDT) Ventricular Rate 82 BPM EXTERNAL EKG Atrial Rate 82 BPM EXTERNAL EKG P-R Interval 154 ms EXTERNAL EKG QRS Duration 92 ms EXTERNAL EKG Q-T Duration 374 ms EXTERNAL EKG QTC CALCULATION 436 ms EXTERNAL EKG P [place] -5 degrees EXTERNAL EKG R [place] -55 degrees EXTERNAL EKG T [place] 48 degrees EXTERNAL EKG 02/14/2024 12:4 5 AM CDT Impressions EXTERNAL EKG - 02/20/2024 9:18 AM CDT Normal sinus rhythm Left anterior fascicular block Minimal voltage criteria for LVH, may be normal variant ( R in aVL ) Septal infarct , age undetermined Abnormal ECG No previous ECGs available Confirmed by Eben Pereyra ([id number]) on 02/20/2024 9:18:15 AM Narrative Procedure Note Eben Pereyra MD - 02/20/2024 IMPRESSION: Normal sinus rhythm Left anterior fascicular block Minimal voltage criteria for LVH, may be normal variant ( R in aVL ) Septal infarct , age undetermined Abnormal ECG No previous ECGs available Confirmed by Eben Pereyra ([id number]) on 02/20/2024 9:18:15 AM us Vikas Richardson MD IMG ECG ORDERABLES F inal Result EXTERNAL EKG * EKG SCAN (02/14/2024 12:00 AM CDT) 02/14/2024 us Provider Scan IMG ECG ORDERABLES Final Result RESULTING AGENCY documented in this encounter Visit Diagnoses Diagnosis Seizure (HCC)- Primary Other convulsions Hypokalemia Hypopotassemia documented in this encounter Administered Medications Inactive Administered Medications - up to 3 most recent administrations Medication Order MAR Action Action Date Dose Rate Site potassium chloride SA (KLORCON M) tablet 40 mEq 40 mEq, Oral, ONCE, 1 dose, On Sharita 02/14/24 at 0200, Do Not Crush Given 02/14/2024 1:44 AM CDT 40 mEq documented in this encounter Active and Recently Administered Medications Times are shown in CDT. Scheduled Medication Order 02/12/2024 02/13/2024 02/14/2024 potassium chloride SA (KLORCON M) tablet 40 mEq (COMPLETED) 40 mEq, Oral, ONCE, 1 dose, On Sharita 02/14/24 at 0200, Do Not Crush 0144 (Given - Provid er: Romulo Bravo RN) documented in this encounter Care Teams Informatics Nurse Relationship Specialty Start Date End Date Provider, None [place] PCP - General 02/13/24 documented as of this encounter
--- OUTSIDE RECORDS SUMMARY | 2024-06-21 04:21 | XMS_ITS | CONTINUITY OF CARE DOCUMENT ---
Author Name radha garcia Address Unknown Organization [facility] Address [address] [place] [address] Phone [phone] Care Team Providers Care Administrative Assistant Receptionist Name Role Phone Blaine Gonzalez MD Unavailable Blaine Gonzalez MD Unavailable INSURANCE PROVIDERS Payer name Policy type / Coverage type [place] red libertarian ID [employer] Medicaid 4 [id number] [facility]CARE [employer] FAMILY [employer] Medicaid 3 [id number]
--- OUTSIDE RECORDS SUMMARY | 2024-06-21 08:44 | XMS_ITS | CONTINUITY OF CARE DOCUMENT ---
Author Name radha garcia Address Unknown Organization [facility] Address [address] [place] [address] Phone [phone] Care Team Providers Care Hypo Splasher Name Role Phone Blaine Gonzalez MD Unavailable Blaine Gonzalez MD Unavailable [phone] INSURANCE PROVIDERS Payer name Policy type / Coverage type [place] red constitution party ID [facility] [facility] Medicaid 4 [id number] [facility] Medicaid 3 [id number]
--- OUTSIDE RECORDS SUMMARY | 2024-06-21 08:44 | XMS_ITS | Clinical Summary ---
Author Organization [facility] Address [address] [place] [address] Phone Care Team Providers Care Healthcare Receptionist Name Role Phone Provider, None Primary Care [...] Smoking cessation. 100 gum 4 Active Pancrelipase, [id number], (CREON 55180) [id number] Capsule DR Particles Take 1 Capsule by [...] = 0.6 oz pur e alcohol) daily [facility] Utilities Answer Date Recorded In the past 12 months has [employer] electric, gas, oil, or water company threatened [...] declined 02/14/2024 How often do you attend jewish or quaker serv ices? Patient declined 02/14/2024 Do you belong to any clubs o r organizations such as jewish groups, unions, fraternal or athletic groups, or [...] medical care, and heating? Very hard 02/14/2024 [facility] [place] of Occupat ional Health - Occupational Stress [...] any time in the past 12 m [facility], were you homeless or living in a [facility] (including now)? Yes 02/14/2024 Sex and Gender [...] measures to stabilize the patient. Care Teams Healthcare Receptionist Relationship Specialty Start Date End Date Provider, None [place] PCP - General 02/13/24
--- OUTSIDE RECORDS SUMMARY | 2024-06-21 08:45 | XMS_ITS | Encounter Summary ---
Author Organization [facility] [employer] Care Team Providers Care Salesman/Owner Name Role Phone Provider, None Primary Care Provider Unavailabl e Encounter Details Date Type Department Care Team (Latest Contact Info) Description 02/13/2024 Travel Social History Tobacco Use Types Packs/Day Years Used Date Smoking Tobacco: Never Assessed [facility] Utilities Answer Date Recorded In the [...] declined 02/14/2024 How often do you attend mosque or baptist serv ices? Patient declined 02/14/2024 Do you belong to any clubs o r organizations such as mosque groups, unions, fraternal or athletic groups, or [...] medical care, and heating? Very hard 02/14/2024 [facility] [place] of Occupat ional Health - Occupational Stress [...] any time in the past 12 m [facility], were you homeless or living in a intermediate (including now)? Yes 02/14/2024 Sex and Gender Information Value Date Recorded Sex Assigned at Not on file Legal Sex Male 1:56 PM CDT Gender Identity Not on file Sexual Orientation Not on file documented as of this encounter Plan of Treatment Not on file documented as of this encounter Visit Diagnoses Not on filedocumented in this encounter Care Teams Salesman/Owner Relationship Specialty Start Date End Date Provider, None [place] PCP - General 02/13/24 documented as of this encounter
--- OUTSIDE RECORDS SUMMARY | 2024-06-21 08:45 | XMS_ITS | Encounter Summary ---
Author Organization [facility] Address [address] [place] [address] Phone Care Team Providers Care Leather Etcher Name Role Phone Provider, None Primary Care Provider Unavailabl e Reason for Visit * Reason Comments Alcohol Intoxication * Auth/Cert (Routine) Specialty Diagnoses / Procedures Referred By Contac t Referred To Contact Diagnoses Alcohol dependence with withdrawal, unspecified Reviewed [facility] 02/25 Referral ID Status Reason Start Date Expiration Date Visits Re quested Visits Authorized [id number] 1 1 Encounter Details Date Type Department Care Team (Late st Contact Info) Description 02/13/2024 3:02 PM CDT - 02/13/2024 8:38 PM CDT Emergency [facility] Emergency [address] [place] [address] Rigo Bullard, PAC #[address] [place] [address] Hypokalemia Discharge Disposition: Discharged to home or Selfcare Social History Tobacco Use Types Packs/Day Years Used Date Smoking Tobacco: Never Assessed [facility] Utilities Answer Date Recorded In the past 12 months has [employer] electric, gas, oil, or water company threatened [...] How often do you attend spiritism or druze serv ices? Patient declined 02/14/2024 Do you [...] medical care, and heating? Very hard 02/14/2024 [facility] Occupat ional Health - Occupational Stress [...] any time in the [facility], were you homeless or living in a senior living (including now)? Yes 02/14/2024 Sex and Gender [...] - 1st line. 10 Tablet 02/13/2024 Pancrelipase, Xgl-Lpiq-Mxrs, (CREON 31241) [id number] Capsule DR Particles Take 1 Capsule by mouth 2 times daily (with meals). traZODone (DESYREL) 150 MG Tablet Take 1 Tablet by mouth nightly. 30 Tablet 02/18/2024 Zemxjpr-Jxzmla-Grt tease (CREON 10 PO) Take by mouth. [...] a steady gait and friend as responsible alliance party.SL D/C'ed with Deniz cath intact. Pt [...] RN will complete hourly rounding. * Romulo rBavo RN - 02/13/2024 4:42 PM CDT Pt [...] Resource Needs: Low Risk (11/28/2023) Received from [facility] Financial Resource Strain Difficulty of Paying Living Expenses: 3 Difficulty of Paying Living Expenses: Not on file Food Insecurity Needs: No Food Insecurity (11/28/2023) Received from [facility] Food Insecurity Worried About Running Out of Food in the Last Year: 1 Transportation Needs: No Transportation Needs (11/28/2023) Received from [facility] Transportation Needs Lack of Transportation (Medical): 1 Physical Activity: Not on file Stress: Not on file Social Integration: Socially Integrated (11/28/2023) Received from [facility] Social Connections Frequency of Communication with Friends and Family: 0 Intimate Partner Violence: Not on file Housing Stability: Low Risk (11/28/2023) Received from [facility] Housing Stability Unable to Pay for Housing in the Last Year: 1 BP (!) 150/99 Pulse 68 Temp 97.8 ??F (36.6 ??C) (Tympanic) Resp 16 Ht 5' 10 (1.778 m) Wt220 lb (99.8 kg) SpO2 100% BMI 31.57 kg/m?? Review of Systems Physical Exam Procedures Recent Results (from the past 24 hour(s)) Magnesium (Mg) [id number] Result Value Ref Range MAGNESIUM 1.6 1.6 - 2.6 mg/dL Comprehensive Metabolic Panel (Cmp) [id number] Result Value Ref Range SODIUM 143 136 [...] GFR, EST. NONAFRICAN >60 >=60 Ethyl Alcohol(Ethanol) [id number] Result Value Ref Range ETHANOL 447 (H) [...] details. Patient heavily intoxicated. No delirium. Contacted [facility] repSamson, patient is not able to be admitted to to [facility] at this time due to EtOH level. Patient understanding. Will try to find a ride home. Potassium supplement. Fluids started, folic acid and thiamine provided. 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 Will be discharge to their care. Call [facility] tomorrow for placement. Return to ED for [...] Bullard PAC CHEMISTRY ORDERABLES Final Result [facility] [place] [address] * Blue Top Tube (02/13/2024 1:22 PM CDT) Blood No Phlebotomy Charged / Unknown 02/13/2024 1:22 PM CDT 02/13/2024 1:52 PM CDT us Rigo Lew Juan Miguel PAC HEMATOLOGY ORDERABLE S Final Result [facility] [place] [address] * (ABNORMAL) CBC with Auto Differential (02/13/2024 1:22 PM CDT) WBC 4.55 4.00 - 12.00 10(3)/mcL 02/13/2024 1:52 PM CDT [facility] RBC 4.65 4.40 - 5.80 10(6)/mcL 02/13/2024 1:52 PM CDT [facility] HEMOGLOBIN (HGB) 14.8 13.0 - 16.5 g/dL 02/13/2024 1:52 PM CDT [facility] HEMATOCRIT (HCT) 43.4 38.0 - 50.0 % 02/13/2024 1:52 PM CDT [facility] MCV 93.3 82.0 - 96.0 fL 02/13/2024 1:52 PM CDT [facility] MCH 31.8 26.0 - 32.0 pg 02/13/2024 1:52 PM CDT [facility] MCHC 34.1 31.0 - 36.0 g/dL 02/13/2024 1:52 PM CDT [facility] PLATELET COUNT 200 140 - 440 10(3)/mcL 02/13/2024 1:52 PM CDT [facility] RDW 15.4 11.8 - 15.5 % 02/13/2024 1:52 PM CDT [facility] MPV 9.7 8.0 - 12.6 fL 02/13/2024 1:52 PM CDT [facility] NEUTROPHILS 37.6(L) 40.0 - 68.0 % 02/13/2024 1:52 PM CDT [facility] LYMPHOCYTES 40.0 19.0 - 49.0 % 02/13/2024 1:52 PM CDT [facility] MONOCYTES 14.9(H) 3.0 - 13.0 % 02/13/2024 1:52 PM CDT [facility] EOSINOPHILS 6.2 0.0 - 8.0 % 02/13/2024 1:52 PM CDT [facility] BASOPHILS 1.3(H) 0.0 - 1.0 % 02/13/2024 1:52 PM CDT [facility] ABSOLUTE NEUTROPHILS 1.71 1.40 - 5.30 10(3)/[facility] 02/13/2024 1:52 PM CDT [facility] ABSOLUTE LYMPHOCYTES 1.82 0.90 - 3.30 10(3)/[facility] 02/13/2024 1:52 PM CDT [facility] ABSOLUTE MONOCYTES 0.68 0.10 - 0.90 10(3)/[facility] 02/13/2024 1:52 PM CDT [facility] ABSOLUTE EOSINOPHIL 0.28 0.00 - 0.50 10(3)/[facility] 02/13/2024 1:52 PM CDT [facility] ABSOLUTE BASOPHILS 0.06 0.00 - 0.10 10(3)/[facility] 02/13/2024 1:52 PM CDT [facility] NRBC PER 100 WBC 0 02/13/20 1:52 PM CDT [facility] Blood Venipuncture / Unknown 02/13/2024 1:22 PM CDT 02/13/2024 1:51 PM CDT us Ole Lynn MD HEMATOLOGY ORDERABLES Zully l Result [facility] [address] [place] [address] * (ABNORMAL) Ethyl Alcohol(Ethanol) [id number] (02/13/2024 1:22 PM CDT) ETHANOL 447(H) <10 mg/dL 02/13/2024 2:12 PM CDT [facility] Blood Venipuncture / Unknown 02/13/2024 1:22 PM CDT 02/13/2024 2:00 PM CDT Ole Lynn MD CHEMISTRY ORDERABLES Final Result [facility] [address] [place] [address] * (ABNORMAL) Comprehensive Metabolic Panel (Cmp) [id number] (02/13/2024 1:22 PM CDT) SODIUM 143 136 - 145 mmol/L 02/13/2024 2:15 PM CDT [facility] POTASSIUM 2.6(LL) 3.5 - 5.1 mmol/L 02/13/2024 2:15 PM CDT [facility] CHLORIDE 108(H) 98 - 107 mmol/L 02/13/2024 2:15 PM CDT [facility] CO2, VENOUS 21(L) 22 - 30 mmol/L 02/13/2024 2:15 PM CDT [facility] ANION GAP 16.6 <18.0 mmol/L 02/13/2024 2:15 PM CDT [facility] GLUCOSE 127(H) 70 - 99 mg/dL 02/13/2024 2:15 PM CDT [facility] BUN 7(L) 8 - 26 mg/dL 02/13/2024 2:15 PM CDT [facility] CREATININE, BLOOD 0.83 0.70 - 1.30 mg/dL 02/13/2024 2:15 PM CDT [facility] BUN/CREATININE RATIO 8(L) 12 - 20 ratio 02/13/2024 2:15 PM CDT [facility] TOTAL PROTEIN 7.3 6.3 - 8.2 g/dL 02/13/2024 2:15 PM CDT [facility] ALBUMIN 4.0 3.5 - 5.0 g/dL 02/13/2024 2:15 PM CDT [facility] A/G RATIO 1.2 1.0 - 2.2 02/13/2024 2:15 PM CDT [facility] CALCIUM 8.1(L) 8.7 - 10.5 mg/dL 02/13/2024 2:15 PM CDT [facility] T BILI 0.4 0.2 - 1.2 mg/dL 02/13/2024 2:15 PM CDT [facility] SGOT (AST) 180(H) 5 - 34 U/L 02/13/2024 2:15 PM CDT [facility] SGPT (ALT) 86(H) 0 - 55 U/L 02/13/2024 2:15 PM CDT [facility] ALKALINE PHOSPHATASE 83 40 - 150 U/L 02/13/2024 2:15 PM CDT [facility] GFR, ESTIMATED >60 >=60 02/13/2024 2:15 PM CDT [facility] Comment: Creatinine Clearance is the preferred criteria for selecting drug dose adjustments in renally impaired patients. ??The GFR is provided as additional pertinent clinical information. GFR is reported in mL/min/1.73 sq m. Calculation based on the Chronic Kidney Disease Epidemiology Collaboration (CKD- EPI) equation refit without adjustment for race. GFR, EST. >60 >=60 024 2:15 PM CDT [facility] GFR, EST. NONAFRICAN >60 >=60 02/13/2024 2:15 PM CDT [facility] Blood Venipuncture / Unknown 02/13/2024 1:22 PM CDT 02/13/2024 2:00 PM CDT us Ole Lynn MD CHEMISTRY ORDERABLES Final Result [facility] [address] [place] [address] * Magnesium (Mg) [id number] (02/13/2024 1:22 PM CDT) MAGNESIUM 1.6 1.6 - 2.6 mg/dL 02/13/2024 2:15 PM CDT [facility] Blood Venipuncture / Unknown 02/13/2024 1:22 PM CDT 02/13/2024 2:00 PM CDT us Ole Lynn MD CHEMISTRY ORDERABLES Final Result [facility] [address] [place] [address] documented in this encounter Visit Diagnoses Diagnosis [...] 1630 1630 (New Bag - Prov ider: Romulo Bravo [...] 1630 1630 (Given - Provid er: Romulo Bravo RN) potassium chloride SA (KLORCON M) tablet 40 mEq (COMPLETED) 40 mEq, Oral, ONCE, 1 dose, On Sun02/13/24 at 1630, Do Not Crush 1630 (Given - Provid er: Romulo Bravo RN) thiamine (VITAMIN B1) tablet 100 mg 100 mg, Oral, DAILY, First dose on Sun02/13/24 at 1630, Until Discontinued 1642 (Given - Provid er: Romulo Bravo RN) documented in this encounter Care Teams Leather Etcher Relationship Specialty Start Date End Date Provider, None [place] PCP - General 02/13/24 documented as of this encounter
--- OUTSIDE RECORDS SUMMARY | 2024-06-21 08:45 | XMS_ITS | Encounter Summary ---
Author Organization [facility] Address [address] [place] [address] Phone Care Team Providers Care Cash Reconciliation Specialist Name Role Phone Provider, None Primary Care Provider Unavailabl e Reason for Visit * Reason Comments Seizure * Auth/Cert (Routine) Specialty Diagnoses / Procedures Referred By Contac t Referred To Contact Diagnoses Alcohol dependence with withdrawal, unspecified Reviewed [facility] 02/25 Referral ID Status Reason Start Date Expiration Date Visits Re quested Visits Authorized [id number] 1 1 Encounter Details Date Type Department Care Team (Late st Contact Info) Description 02/14/2024 12:05 AM CDT - 02/14/2024 2:00 AM CDT Emergency [facility] Emergency [address] [place] [address] Vikas Richardson MD [address] [place] [id number] Hypokalemia Discharge Disposition: Discharged to home or Selfcare Social History Tobacco Use Types Packs/Day Years Used Date Smoking Tobacco: Every Day Cigarettes Smokeless Tobacco: Never Tobacco Cessation:Ready to Q uit: Not Asked; Counseling Given: Not Answered Alcohol Use Standard Drinks/Week Comments Yes 0 (1 standard drink = 0.6 oz pur e alcohol) daily [facility] Utilities Answer Date Recorded In the [...] declined 02/14/2024 How often do you attend hinduism or mormon serv ices? Patient declined 02/14/2024 Do you belong to any clubs o r organizations such as hinduism groups, unions, fraternal or athletic groups, or [...] medical care, and heating? Very hard 02/14/2024 [facility] [place] of Occupat ional Health - Occupational Stress [...] any time in the past 12 m [facility], were you homeless or living in a [...] - 1st line. 10 Tablet 02/13/2024 Pancrelipase, Vkr-Ndxv-Kwkg, (CREON 05651) [id number] Capsule DR Particles Take 1 Capsule by mouth 2 times daily (with meals). traZODone (DESYREL) 150 MG Tablet Take 1 Tablet by mouth nightly. 30 Tablet 02/18/2024 Hvdviht-Wxjqmr-Ikh tease (CREON 10 PO) Take by mouth. [...] discharged via wheelchair with friend as responsible constitution party. SL D/C'edwith Deniz cath intact. Pt alert [...] an appointment to go into detox at [facility] tomorrow morning. Current Facility-Administered Medications Medication Dose Route Frequency Provider Last Rate Last Admin potassium chloride SA (KLORCON M) tablet 40 mEq 40 mEq Oral Once Vikas Richardson MD Current Outpatient Medications Medication Sig Dispense Refill AMLODIPINE BESYLATE PO Take by mouth. Xrehxtw-Nfewzr-Mjpnakpa (CREON 10 PO) Take by mouth. ondansetron [...] Resource Needs: Low Risk (11/28/2023) [facility] Financial Resource Strain Difficulty of Paying Living Expenses: 3 Difficulty of Paying Living Expenses: Not on file Food Insecurity Needs: No Food Insecurity (11/28/2023) [facility] Worried About Running Out of Food in the Last Year: 1 Transportation Needs: No Transportation Needs (11/28/2023) [facility] Transportation Needs Lack of Transportation (Medical): 1 Physical Activity: Not on file Stress: Not on file Social Integration: Socially Integrated (11/28/2023) Re[facility] Social Connections Frequency of Communication with Friends and Family: 0 Intimate Partner Violence: Not on file Housing Stability: Low Risk (11/28/2023) [facility] Housing Stability Unable to Pay for Housing [...] (from the past 24 hour(s)) Magnesium (Mg) [id number] Result Value Ref Range MAGNESIUM 1.6 1.6 - 2.6 mg/dL Comprehensive Metabolic Panel (Cmp) [id number] Result Value Ref Range SODIUM 143 136 [...] GFR, EST. NONAFRICAN >60 >=60 Ethyl Alcohol(Ethanol) [id number] Result Value Ref Range ETHANOL 447 (H) [...] of encephalomalacia in the bilateral caudate heads, lryu-stynobj-eujf-right as evidence for chronic lacunar infarcts. There [...] Carter Londono M.D..O. MW: BECK Report ID: [id number] Reading Location: [id number] Medical Decision Making Differential diagnosis: Electrolyte abnormality, [...] videos and all your education online visit, [email or web address] de [email or web address] or scan this QR code with your [...] for Disease Control and Prevention: cdc.gov National [place] on Alcohol Abuse and Alcoholism: niaaa.nih.gov Alcoholics [...] the National Suicide Prevention Lifeline at or 663. This is open 24 hours a day. Text the Crisis Text Line at 412915. Summary Alcohol misuse and dependence can have [...] 2017-05-29 Document Updated: 2022-08-09 Document Reviewed: 2022-08-09 [employer] Patient Education ? 2023 [employer] Non-Epileptic Seizures, Adult A non-epileptic seizure [...] do if you have a seizure. Take jexp-mky-bmsoeoe and prescription medicines only as told by [...] right away. Call your local emergency services (621 in the [place] Do not drive yourself to the hospital. If you ever feel like you may hurt yourself or others, or have thoughts about taking your own life,get help right away. Go to your nearest emergency department or: Call your local emergency services (491 in the [place] Call a suicide crisis helpline, such as the National Suicide Prevention Lifeline at or 438 in the [place] This is open 24 hours a day in the [place] Text the Crisis Text Line at 764880 (in the [place] Summary Non-epileptic seizures are [...] 2006-07-20 Document Updated: 2021-12-28 Document Reviewed: 2020-11-19 [employer] Patient Education ? 2023 [employer] documented in this encounter Plan of [...] of encephalomalacia in the bilateral caudate heads, ktak-zffkpfi-wdbo-right as evidence for chronic lacunar infarcts. ?There [...] AM T: ??02/14/2024 1:11 AM Report ID: [id number] Reading Location: ??[id number] Procedure Note Vipin Slaughter, DO - 02/14/2024 [...] of encephalomalacia in the bilateral caudate heads, sorm-dxmuxwv-qulz-right as evidence for chronic lacunar infarcts. There [...] Slaughter M.D., D.O. MW: BECK Report ID: [id number] Reading Location: [id number] IMPRESSION: No acute intracranial findings. Vikas Richardson MD IM CT ORDERABLES Fi nal Result * TROPONIN I, HIGH SENSITIVITY (HSTRP) (02/14/2024 1:01 AM CDT) TROPONIN I, HIGH SENSITIVITY- DIEGO 6 <=35 ng/L 02/14/2024 1:32 AM CDT [facility] Comment: High-sensitivity troponin I results are reported in ng/L making the result appear to be 1,000 times higher than the contemporary troponin I value which is reported in ng/ml. Results from [place]. Blood Venipuncture / Unknown 02/14/2024 1:01 AM CDT 02/14/2024 1:01 AM CDT us Vikas Richardson MD CHEMISTRY ORDERABLES Final Result [facility] #1 [place] [address] * (ABNORMAL) BMP w/ Ca (02/14/2024 1:01 AM CDT) SODIUM 141 136 - 145 mmol/L 02/14/2024 1:25 AM CDT [facility] POTASSIUM 3.0(L) 3.5 - 5.1 mmol/L 02/14/2024 1:25 AM CDT [facility] CHLORIDE 104 98 - 107 mmol/L 02/14/2024 1:25 AM CDT [facility] CO2, VENOUS 24 22 - 30 mmol/L 02/14/2024 1:25 AM CDT [facility] ANION GAP 16.0 <18.0 mmol/L 02/14/2024 1:25 AM CDT [facility] GLUCOSE 102(H) 70 - 99 mg/dL 02/14/2024 1:25 AM CDT [facility] BUN 7(L) 8 - 26 mg/dL 02/14/2024 1:25 AM CDT [facility] CREATININE, BLOOD 0.76 0.70 - 1.30 mg/dL 02/14/2024 1:25 AM CDT [facility] BUN/CREATININE RATIO 9(L) 12 - 20 ratio 02/14/2024 1:25 AM CDT [facility] CALCIUM 7.9(L) 8.7 - 10.5 mg/dL 02/14/2024 1:25 AM CDT [facility] GFR, ESTIMATED >60 >=60 02/14/2024 1:25 AM CDT [facility] Comment: Creatinine Clearance is the preferred criteria for selecting drug dose adjustments in renally impaired patients. ??The GFR is provided as additional pertinent clinical information. GFR is reported in mL/min/1.73 sq m. Calculation based on the Chronic Kidney Disease Epidemiology Collaboration (CKD- EPI) equation refit without adjustment for race. GFR, EST. >60 >=60 024 1:25 AM CDT [facility] GFR, EST. NONAFRICAN >60 >=60 02/14/2024 1:25 AM CDT [facility] Blood Venipuncture / Unknown 02/14/2024 1:01 AM CDT 02/14/2024 1:01 AM CDT us Vikas Richardson MD CHEMISTRY ORDERABLES Final Result [facility] [address] [place] [address] * (ABNORMAL) CBC with Auto Differential (02/14/2024 1:00 AM CDT) WBC 6.03 4.00 - 12.00 10(3)/mcL 02/14/2024 1:07 AM CDT [facility] RBC 4.17(L) 4.40 - 5.80 10(6)/mcL 02/14/2024 1:07 AM CDT [facility] HEMOGLOBIN (HGB) 13.3 13.0 - 16.5 g/dL 02/14/2024 1:07 AM CDT [facility] HEMATOCRIT (HCT) 38.1 38.0 - 50.0 % 02/14/2024 1:07 AM CDT [facility] MCV 91.4 82.0 - 96.0 fL 02/14/2024 1:07 AM CDT [facility] MCH 31.9 26.0 - 32.0 pg 02/14/2024 1:07 AM CDT [facility] MCHC 34.9 31.0 - 36.0 g/dL 02/14/2024 1:07 AM CDT [facility] PLATELET COUNT 182 140 - 440 10(3)/mcL 02/14/2024 1:07 AM CDT [facility] RDW 15.2 11.8 - 15.5 % 02/14/2024 1:07 AM CDT [facility] MPV 9.6 8.0 - 12.6 fL 02/14/2024 1:07 AM CDT [facility] NEUTROPHILS 53.7 40.0 - 68.0 % 02/14/2024 1:07 AM CDT [facility] LYMPHOCYTES 24.9 19.0 - 49.0 % 02/14/2024 1:07 AM CDT [facility] MONOCYTES 14.6(H) 3.0 - 13.0 % 02/14/2024 1:07 AM CDT [facility] EOSINOPHILS 5.8 0.0 - 8.0 % 02/14/2024 1:07 AM CDT [facility] BASOPHILS 1.0 0.0 - 1.0 % 02/14/2024 1:07 AM CDT [facility] ABSOLUTE NEUTROPHILS 3.24 1.40 - 5.30 10(3)/mcL 02/14/2024 1:07 AM CDT [facility] ABSOLUTE LYMPHOCYTES 1.50 0.90 - 3.30 10(3)/[facility] 02/14/2024 1:07 AM CDT [facility] ABSOLUTE MONOCYTES 0.88 0.10 - 0.90 10(3)/[facility] 02/14/2024 1:07 AM CDT [facility] ABSOLUTE EOSINOPHIL 0.35 0.00 - 0.50 10(3)/[facility] 02/14/2024 1:07 AM CDT [facility] ABSOLUTE BASOPHILS 0.06 0.00 - 0.10 10(3)/[facility] 02/14/2024 1:07 AM [facility] NRBC PER 100 WBC 0 02/14/20 1:07 AM T [facility] Blood Venipuncture / Unknown 02/14/2024 1:00 AM CDT 02/14/2024 1:01 AM CDT us Vikas Richardson MD HEMATOLOGY ORDERABLE S Final Result [facility] [place] [address] * EKG 12 LEAD (02/14/2024 12:45 AM CDT) Ventricular Rate 82 BPM EXTERNAL EKG Atrial Rate 82 BPM EXTERNAL EKG P-R Interval 154 ms EXTERNAL EKG QRS Duration 92 ms EXTERNAL EKG Q-T Duration 374 ms EXTERNAL EKG QTC CALCULATION 436 ms EXTERNAL EKG P Buxton -5 degrees EXTERNAL EKG R Buxton -55 degrees EXTERNAL EKG T [place]xton 48 degrees EXTERNAL EKG 02/14/2024 12:4 5 AM CDT Impressions EXTERNAL EKG - 02/20/2024 9:18 AM CDT Normal sinus rhythm Left anterior fascicular block Minimal voltage criteria for LVH, may be normal variant ( R in aVL ) Septal infarct , age undetermined Abnormal ECG No previous ECGs available Confirmed by Eben Pereyra ([id number]) on 02/20/2024 9:18:15 AM Narrative Procedure Note Eben Pereyra MD - 02/20/2024 IMPRESSION: Normal sinus rhythm Left anterior fascicular block Minimal voltage criteria for LVH, may be normal variant ( R in aVL ) Septal infarct , age undetermined Abnormal ECG No previous ECGs available Confirmed by Eben Pereyra ([id number]) on 02/20/2024 9:18:15 AM us Vikas Richardson [...] RN) documented in this encounter Care Teams Cash Reconciliation Specialist Relationship Specialty Start Date End Date Provider, None [place] PCP - General 02/13/24 documented as of this encounter
--- OUTSIDE RECORDS SUMMARY | 2024-06-21 08:45 | XMS_ITS | Encounter Summary ---
Author Organization [employer] Care Team Providers Care Offal Trimmer Name Role Phone Provider, None Primary Care Provider Unavailabl e Encounter Details Date Type Department Care Team (Latest Contact Info) Description 02/14/2024 Travel Social History Tobacco Use Types Packs/Day Years Used Date Smoking Tobacco: Every Day Cigarettes Smokeless Tobacco: Never Alcohol Use Standard Drinks/Week Comments Yes 0 (1 standard drink = 0.6 oz pur e alcohol) daily [facility] Utilities Answer Date Recorded In the past 12 months has [employer], gas, oil, or water [employer] threatened to shut off services in your home? Patient declined 02/14/2024 Social Connection and Isolation Panel [NHANES] A nswer Date Recorded In a typical week, how many times do you talk on the phone with family, friends, or neighbors? Patient declined 02/14/2024 How often do you get togethe r with friends or relatives? Patient declined 02/14/2024 How often do you attend rastafarian or moravian serv ices? Patient declined 02/14/2024 Do you belong to any clubs o r organizations such as rastafarian groups, unions, fraternal or athletic groups, or [...] medical care, and heating? Very hard 02/14/2024 [facility] - Occupational Stress Questionnaire Answer Date Recorded [...] any time in the past 12 m [facility], were you homeless or living [...] on filedocumented in this encounter Care Teams Offal Trimmer Relationship Specialty Start Date End Date Provider, Juan Francisco JUDD PCP - General 02/13/24 documented as of this encounter
== END 2024-06-14 08:30 | disposition left against medical advice (07) ==
DX: Z53.21 Procedure and treatment not carried out due to patient leaving prior to being seen by health care provider (principal)
CPT/HCPCS: 99199